=== PATIENT | male | born 1960 | race Caucasian/White ===

== ENCOUNTER 2023-12-16 09:26 | Inpatient (IN) ==
[2023-12-16 11:40] LABS: Albumin Globulin Ratio 0.7 (0.9-2); Albumin Level 3.1 gm/dl (3.4-5.0); BUN Creatinine Ratio 6.5 (10-20); Calcium 8.6 mg/dl (8.6-10.3); Creatinine Clr Calc Pharmacy 82.2 ml/min; Est GFR (African American) 101.5 ml/min; Est GFR (Non-African American) 87.6 ml/min; Globulin 4.6 gm/dl (2.5-4.0); Potassium 4.2 mmol/L (3.5-5.1); Total Protein 7.7 gm/dl (6.0-8.3)
[2023-12-16 11:44] LABS: Anisocytosis Present; Basophils # (auto) 0.02 K/uL (0.00-0.20); Basophils % (auto) 0.2 %; Eosinophils # (auto) 0.01 K/uL (0.00-0.50); Eosinophils % (auto) 0.1 %; Hematocrit (blood only) 35.3 % (42.0-52.0); Hemoglobin 9.9 g/dl (14.0-18.0); Immature Granulocytes # (auto) 0.04 K/uL (0.01-0.20); Immature Granulocytes % (auto) 0.4 %; Lymphocytes # (auto) 0.77 K/uL (1.20-3.40); Lymphocytes % (auto) 7.3 %; Mean Corpuscular Hemoglobin 17.8 pg (25.0-34.0); Mean Corpuscular Volume 63.5 fL (80.0-100.0); Mean Platelet Volume 9.7 fL (9.4-12.4); Monocytes # (auto) 0.53 K/uL (0.11-0.59); Neutrophils # (auto) 9.23 K/uL (1.40-6.50); Platelet Count 259 K/uL (130-400); Polychromasia 1+; RDW Coefficient of Variation 24.4 % (11.5-14.5); RDW Standard Deviation 53.1 fL (36.4-46.3); Red Blood Count 5.56 M/uL (4.70-6.10); Target Cells 2+
[2023-12-16] MEDS: OPTIRAY 320 100ml IV ONE (12:02)
--- NOTE | 2023-12-16 12:29 | CT Scan Report ---
CT abd pelvis IV con only CLINICAL HISTORY: CONTINUED ABD PAIN, ABNORMAL CT 2 DAYS AGO TECHNIQUE: Helical axial images of the abdomen and pelvis were obtained and displayed. Automated dose lowering techniques and/or adjustment according to patient size were utilized for this exam. This e xam was performed with intravenous contrast. CT DOSE: 1193.81 mGy.cm COMPARISON: Comparison is made to CT abdomen pelvis 12/15/2023 FINDINGS: Lower chest: No acute abnormality. Liver: Hepatic steatosis is noted. Gallbladder and biliary tree: No calcified gallstones. Normal caliber wall. No intra- or extrahepatic biliary ductal dilation. Pancreas: Unremarkable, no focal lesions. Spleen: Unremarkable. Adrenals: Unremarkable. Kidneys and ureters: Unremarkable. Bladder: Diffuse homogeneous wall thickening is seen. Reproductive organs: Prostatic calcifications are seen which may represent prior hemorrhage or granul omatous disease. Bowel: There are multiple dilated loops of thickened small bowel up to the level of the ileocecal alek ve. A proximal transition point suggested in the left upper quadrant. The colon is underdistended. Th e appendix is normal. Diverticulosis is seen without diverticulitis. There is a moderate hiatal herni a. Lymph nodes Retroperitoneal: Unremarkable. Pelvic: Unremarkable. Mesenteric: Unremarkable. Peritoneum: A small amount of peritoneal fluid is seen. Vessels: Atherosclerotic calcifications are seen. Abdominal wall: A fat-containing umbilical hernia is seen. Bones: Degenerative changes in the visualized spine. IMPRESSION: 1. Worsening findings of enteritis, now likely with a component of small bowel obstruction. 2. Hepatic steatosis. ACT 112: Negative or not required by law. Electronically signed by: Vignesh Licona M.D. 12/16/2023 12:28 PM
[2023-12-16] MEDS: KETOROLAC TROMETHAMINE 15 MG/ML VIAL IV ONE (14:50)
[2023-12-16] MEDS: SODIUM CHLORIDE 0.9% 1,000 ML IV ONE (14:51)
[2023-12-16] MEDS: ACETAMINOPHEN 1,000 MG/100 ML VIAL IV STA (14:53)
[2023-12-16] MEDS: LORazepam 1 MG/1 ML SYR ED Inj Use IV STA (14:58)
--- NOTE | 2023-12-16 15:02 | Emergency Department Note ---
Impression & Plan SBO (small bowel obstruction) ED Provider Note NAME: RODRIGO CARY AGE: 63 SEX: M : 1960 ARRIVES VIA: Walk-In INFORMANT: Patient, ED PROVIDER(S): Jennifer Ferrer MD CHIEF COMPLAINT: Worsening abdominal pain HPI: This is a 63-year-old male with history of alcohol use disorder presenting for worsening abdominal pain. Patient states that he was diagnosed with enteritis about 2 days ago. At this time on CT imaging here. Otherwise the workup was negative in the ER. Patient presented to his PCP was concerned for a lump in the cecum. Unclear why what testing prompted this. Otherwise patient notes that his pain is significantly worsening at this time. No recent fevers or chills. No recent diarrhea. ROS: See above HPI for pertinent positives & negatives. A total of 10 systems reviewed and were otherwise negative. PAST MEDICAL HISTORY: See Below PAST SURGICAL HISTORY: See Below FAMILY HISTORY: See Below SOCIAL HISTORY: See Below HOME MEDICATIONS: See Below ALLERGIES: See Below VITALS: See Below PHYSICAL EXAMINATION: General: resting comfortably in no acute distress Head: Normocephalic and atraumatic Eyes: Normal inspection, extraocular muscles intact Ear, nose, throat: Normal external exam Neck: Normal range of motion Respiratory: lungs clear to auscultation bilaterally Cardiovascular: Regular rate/rhythm, no murmur GI: Distended, soft, nontender, no guarding or rebound Extremities: nontender, moves all extremities Neuro: The patient awake and alert, appropriately conversive, no focal deficits, symmetric faces Skin: Warm, dry, and intact MEDICAL DECISION MAKING: This is a 63-year-old male presenting for worsening abdominal pain. He had repeat CT imaging here that now shows small bowel obstruction. Patient blood work otherwise reviewed without significant maladies. Patient also does admit to chronic alcohol use and slight withdrawal. Will give him Ativan for this. Admit for further SBO treatment. Differential diagnosis: SBO, dissection, gastritis, enteritis, cholecystitis, hepatitis ER treatment provided: See below Diagnostics interpreted by me: ECG: ECG independently interpreted by me with normal sinus rhythm, rate of 65, normal axis, normal PA, normal QRS, normal QTc, no ST segment elevations consistent with STEMI criteria Cardiac Monitoring: An order was placed for continuous cardiac monitoring. The monitor shows a rate of 74 with sinus rhythm. Laboratory studies: As stated above and show below. Imaging studies: See below. Past Med/Surg History Medical History Alcohol use disorder H/O gastroesophageal reflux (GERD) Social History Smoking Status: Never smoker Hx Alcohol Use: Yes Alcohol type: beer and hard liquor Hx Substance Use: No Preferred Language: Greenlandic Communication Ability: Effective Nocturnist Physician Required: No Beliefs That Will Affect Care: None Current Living Situation: Alone Feels Safe at Home: Yes Assistive Devices: None Allergies Allergies Allergy/AdvReac Type Severity Reaction Status Date / Time tree and shrub pollen Allergy Mild runny Verified 12/16/23 13:55 nose, itchy eyes, sneezing Home Meds Home Medications Medication Instructions Recorded Confirmed diphenhydramine HCl 25 mg capsule 25 mg PO DIRECTED PRN ALLERGIES 12/15/23 12/16/23 (Benadryl) Previous Rx's Medication Instructions Recorded pantoprazole 40 mg tablet,delayed 40 mg PO DAILY #30 tabs 10/29/23 release sucralfate 100 mg/mL oral 10 ml PO QID #420 mL 10/29/23 suspension (Carafate) dicyclomine 10 mg capsule 10 mg PO TID PRN abdominal pain 12/15/23 #20 caps ondansetron 4 mg disintegrating 4 - 8 mg (1 - 2 x 4 mg) PO Q8H PRN 12/15/23 tablet nausea and vomiting #14 tabs Results & Data (ED) Vital Signs Vital Signs - 24 hr 12/16/23 09:35 Temperature 36.5 C Temperature Source Temporal Artery Scan Pulse Rate 94 H Pulse Rhythm Regular Respiratory Rate 20 Respiratory Effort / Characteristics Non-Labored Spontaneous Respiratory Depth Normal Blood Pressure 132/75 Blood Pressure Mean 94 Pulse Oximetry 97 Oxygen Delivery Method Room Air Sepsis Recent Fever Within 48 Hours No Sepsis New/Unexplained Change in Mental Status No Sepsis Action Taken by Nursing No Action Required Laboratory Data 12/18/23 05:27 12/18/23 05:27 Lab Results 12/16/23 12/16/23 12/16/23 Range/Units 11:03 15:13 15:14 WBC 10.60 (4.8-10.8) K/ul RBC 5.56 (4.70-6.10) M/uL Hgb 9.9 L (14.0-18.0) g/dl Hct 35.3 L (42.0-52.0) % MCV 63.5 L (80.0-100.0) fL MCH 17.8 L (25.0-34.0) pg MCHC 28.0 L (32.0-36.0) g/dL RDW Std Deviation 53.1 H (36.4-46.3) fL RDW Coeff of Rustam 24.4 H (11.5-14.5) % Plt Count 259 (130-400) K/uL MPV 9.7 (9.4-12.4) fL Immature Gran % (Auto) 0.4 % Neut % (Auto) 87.0 % Lymph % (Auto) 7.3 % Gallia % (Auto) 5.0 % Eos % (Auto) 0.1 % Baso % (Auto) 0.2 % Neut # (Auto) 9.23 H (1.40-6.50) K/uL Lymph # (Auto) 0.77 L (1.20-3.40) K/uL Gallia # (Auto) 0.53 (0.11-0.59) K/uL Eos # (Auto) 0.01 (0.00-0.50) K/uL Baso # (Auto) 0.02 (0.00-0.20) K/uL Immature Gran # (Auto) 0.04 (0.01-0.20) K/uL Polychromasia 1+ Hypochromasia Present Anisocytosis Present Microcytosis Present Target Cells 2+ Sodium 132 L (136-145) mmol/L Potassium 4.2 (3.5-5.1) mmol/L Chloride 99 (98-107) mmol/L Carbon Dioxide 25 (21-32) mmol/L Anion Gap 8 (3-11) BUN 6 (6-23) mg/dl Creatinine 0.92 (0.6-1.4) mg/dl Est Cr Clr Drug Dosing 82.2 ml/min Est GFR ( Amer) 101.5 ml/min Est GFR (Non-Af Amer) 87.6 ml/min BUN/Creatinine Ratio 6.5 L (10-20) Glucose 140 H (70-99(Fasting)) mg/dl Lactate 1.7 (0.4-2.0) mmol/L Calcium 8.6 (8.6-10.3) mg/dl Magnesium 2.0 (1.7-2.4) mg/dl Total Bilirubin 1.0 D (0.2-1.0) mg/dl AST 37 (13-39) U/L ALT 19 (7-52) U/L Alkaline Phosphatase 119 H (34-104) U/L Total Protein 7.7 (6.0-8.3) gm/dl Albumin 3.1 L (3.4-5.0) gm/dl Globulin 4.6 H (2.5-4.0) gm/dl Albumin/Globulin Ratio 0.7 L (0.9-2) Lipase 51 (11-82) U/L Vitamin B12 475 (180-914) pg/ml Folate 7.64 (>5.38) ng/ml Administered Medications Thiamine HCl 100 mg/ Syringe 10 mls @ 2 mls/min IV [facility] Stop: 01/15/24 15:44 Last Admin: 12/17/23 08:52 Dose: 2 mls/min Documented By: Admin: 12/16/23 17:09 Dose: 2 mls/min Documented By: ANI Folic Acid 1 mg/ Syringe 10 mls @ 5 mls/min IV [facility] Stop: 01/15/24 15:44 Last Admin: 12/17/23 08:51 Dose: 5 mls/min Documented By: Admin: 12/16/23 17:09 Dose: 5 mls/min Documented By: ANI Acetaminophen (Ofirmev) 1,000 mg in 100 mls @ 400 mls/hr IV Q8H PRN PRN Reason: pain(1-4),headache,fever Stop: 12/19/23 19:59 Last Infusion: 12/17/23 03:56 Dose: Infused Documented By: Admin: 12/17/23 03:29 Dose: 400 mls/hr Documented By: Infusion: 12/16/23 22:16 Dose: Infused Documented By: Admin: 12/16/23 20:49 Dose: 400 mls/hr Documented By: FRANDY Lactated Ringer's (Lr) 1,000 mls @ 100 mls/hr IV .Q10H FE Stop: 01/15/24 15:59 Last Admin: 12/18/23 05:27 Dose: 100 mls/hr Documented By: Infusion: 12/18/23 00:51 Dose: Infused Documented By: Admin: 12/17/23 14:51 Dose: 100 mls/hr Documented By: Infusion: 12/17/23 13:55 Dose: Infused Documented By: Admin: 12/17/23 03:55 Dose: 100 mls/hr Documented By: Infusion: 12/17/23 03:31 Dose: Infused Documented By: Admin: 12/16/23 16:19 Dose: 100 mls/hr Documented By: ANI Pantoprazole Sodium 40 mg/ (Syringe) 10 mls @ 5 mls/min IV BID FE Stop: 01/15/24 20:59 Last Admin: 12/17/23 21:45 Dose: 5 mls/min Documented By: Admin: 12/17/23 08:51 Dose: 5 mls/min Documented By: Admin: 12/16/23 20:49 Dose: 5 mls/min Documented By: FRANDY Famotidine (Pepcid 20mg Iv Push) 20 mg in 5 mls @ 2.5 mls/min IV Q12H FE Stop: 01/15/24 20:59 Last Admin: 12/17/23 21:44 Dose: 2.5 mls/min Documented By: Admin: 12/17/23 08:50 Dose: 2.5 mls/min Documented By: Admin: 12/16/23 20:49 Dose: 2.5 mls/min Documented By: FRANDY Morphine Sulfate (Morphine Sulfate 2 Mg/Ml Carp) 2 mg IV Q4H PRN PRN Reason: Pain(5+) Stop: 12/30/23 15:43 Last Admin: 12/17/23 12:17 Dose: 2 mg Documented By: Admin: 12/17/23 07:21 Dose: 2 mg Documented By: PETR Discontinued Medications Acetaminophen (Ofirmev) 1,000 mg in 100 mls @ 400 mls/hr IV NOW STA Stop: 12/16/23 14:41 Last Infusion: 12/16/23 15:15 Dose: Infused Documented By: Admin: 12/16/23 14:53 Dose: 400 mls/hr Documented By: SEBASTIAN Sodium Chloride (Nss) 1,000 mls @ 999 mls/hr IV .Q1H1M ONE Stop: 12/16/23 15:27 Last Infusion: 12/16/23 15:51 Dose: Infused Documented By: AENasima Infusion: 12/16/23 15:51 Dose: 0 mls/hr Documented By: Admin: 12/16/23 14:51 Dose: 999 mls/hr Documented By: SEBASTIAN Pantoprazole Sodium 40 mg/ (Syringe) 10 mls @ 5 mls/min IV NOW ONE Stop: 12/16/23 15:10 Last Admin: 12/16/23 15:26 Dose: 5 mls/min Documented By: ANI Famotidine (Pepcid 20mg Iv Push) 20 mg in 5 mls @ 2.5 mls/min IV NOW STA Stop: 12/16/23 15:10 Last Admin: 12/16/23 15:17 Dose: 2.5 mls/min Documented By: ANI Lactated Ringer's (Lr) 1,000 mls @ 999 mls/hr IV .Q1H1M ONE Stop: 12/16/23 16:40 Last Infusion: 12/16/23 16:57 Dose: Infused Documented By: Admin: 12/16/23 15:48 Dose: 999 mls/hr Documented By: ANI Ioversol (Optiray 320 100ml) 93 ml IV ONCE ONE Stop: 12/16/23 12:03 Last Admin: 12/16/23 12:02 Dose: 93 ml Documented By: MARIA ALEJANDRA Ketorolac Tromethamine (Ketorolac Tromethamine 15 Mg/Ml Vial) 15 mg IV NOW ONE Stop: 12/16/23 14:28 Last Admin: 12/16/23 14:50 Dose: 15 mg Documented By: SEBASTIAN Lorazepam (Lorazepam 1 Mg/1 Ml Syr Ed Inj Use) 2 mg IV ONE STA Stop: 12/16/23 14:34 Last Admin: 12/16/23 14:58 Dose: Not Given Documented By: ANI Ondansetron HCl (Ondansetron Inj 2 Mg/Ml 2 Ml Vial) 4 mg IV NOW STA Stop: 12/16/23 14:28 Last Admin: 12/16/23 15:49 Dose: Not Given Documented By: ANI Ondansetron HCl (Ondansetron Inj 2 Mg/Ml 2 Ml Vial) 4 mg IV NOW STA Stop: 12/17/23 11:38 Last Admin: 12/17/23 12:12 Dose: 4 mg Documented By: ASVANNA Imaging Data Radiologist's Impression: Abdomen/Pelvis CT 12/16/23 10:04 CT abd pelvis IV con only CLINICAL HISTORY: CONTINUED ABD PAIN, ABNORMAL CT 2 DAYS AGO TECHNIQUE: Helical axial images of the abdomen and pelvis were obtained and displayed. Automated dose lowering techniques and/or adjustment according to patient size were utilized for this exam. This exam was performed with intravenous contrast. CT DOSE: 1193.81 mGy.cm COMPARISON: Comparison is made to CT abdomen pelvis 12/15/2023 FINDINGS: Lower chest: No acute abnormality. Liver: Hepatic steatosis is noted. Gallbladder and biliary tree: No calcified gallstones. Normal caliber wall. No intra- or extrahepatic biliary ductal dilation. Pancreas: Unremarkable, no focal lesions. Spleen: Unremarkable. Adrenals: Unremarkable. Kidneys and ureters: Unremarkable. Bladder: Diffuse homogeneous wall thickening is seen. Reproductive organs: Prostatic calcifications are seen which may represent prior hemorrhage or granulomatous disease. Bowel: There are multiple dilated loops of thickened small bowel up to the level of the ileocecal valve. A proximal transition point suggested in the left upper quadrant. The colon is underdistended. The appendix is normal. Diverticulosis is seen without diverticulitis. There is a moderate hiatal hernia. Lymph nodes Retroperitoneal: Unremarkable. Pelvic: Unremarkable. Mesenteric: Unremarkable. Peritoneum: A small amount of peritoneal fluid is seen. Vessels: Atherosclerotic calcifications are seen. Abdominal wall: A fat-containing umbilical hernia is seen. Bones: Degenerative changes in the visualized spine. IMPRESSION: 1. Worsening findings of enteritis, now likely with a component of small bowel obstruction. 2. Hepatic steatosis. ACT 112: Negative or not required by law. Electronically signed by: Vignesh Licona M.D. 12/16/2023 12:28 PM Discharge Plan Visit Data Chief Complaint: Abdominal Pain Stated Complaint: ABD CRAMPING, POSSIBLE GASTRITIS ED Provider: Jennifer Ferrer Discharge Problem: SBO (small bowel obstruction) Patient Disposition: Admitted As Inpatient Discharge Instructions Interventions: ED Discharge Assessment Last Done: 12/16/23 17:46
--- NOTE | 2023-12-16 15:11 | History & Physical Report ---
Date of Service December 16, 2023 Assessment & Plan (1) SBO (small bowel obstruction): Plan: -Admit to med/tele -Currently stable and non-toxic appearing -Noted to have a SBO on CT of the abd/pelvis today after he presented to the ED with worsening abd pain, nausea, and vomiting -Patient is currently pain free and without current nausea or vomiting, will hold NG tube for now >Discussed need for NG tube if symptoms worsen, patient is in agreement if needed -General Surgery has been consulted and will follow, no urgent OR plans at this time -Strict NPO -S/P 1L NSS and 15 mg IV toradol in the ED, would avoid further nsaids at this time with acute enteritis as well -Will give 1L LR on admission then continue maintenance LR while NPO -Pain control with IV tylenol and morphine -PRN IV zofran for nausea/vomiting -BL MARK's for DVT PPX AM CBC, CMP, mag, PT/INR, folic acid, B12 levels (2) Enteritis: Plan: -Had been noted on the CT of the abd/pelvis on 12/13 -Now more severe today, no reported perforation or bleed -Likely due to his alcohol use -Patient did note up to 8 episodes of non-bloody diarrhea over the past month >States his BM's are usually loose and small -Will begin q12h IV famotidine and pantoprazole -Will obtain stool studies and C. Diff PCR to rule out infectious etiology -Will hold abx for now as he is without a leukocytosis and is non-toxic a ppearing -Pain management per SBO plan (3) Alcohol use disorder: Plan: -Patient was drinking up to 24 beers daily approximately 6 weeks ago -Has been slowly weaning down alcohol intake to prevent withdrawal symptoms -Patient has had withdrawal symptoms in the past when he stops drinking but denies the previous need for inpatient hospitalization -Denies previous withdrawal seizures -Last drink was 2, 3% beers last evening -Denies current withdrawal symptoms, does not appear to be in active withdrawal -Did have one dose of 2mg IV ativan -Will start at risk AWSS protocol with IV ativan -Will start daily IV thiamine and folic acid today -Continue IV hydration -Will obtain mag level -Will obtain B12 and folic acid levels (4) Diarrhea: Plan: -Patient has been having up to 8 episodes of non-bloody diarrhea over the past 2 months -Denies recent fevers or abx use -Likely due to his alcohol use, poor oral intake and enteritis -Will obtain stool studies and C. diff PCR for further evaluation -Hold antidiarrheals until stool studies are back (5) H/O gastroesophageal reflux (GERD): Plan: -Continue IV pantoprazole and Pepcid while NPO -Can resume PO PPI, H2 tasneem, and Carafate when safe to resume PO intake (6) Anemia: Plan: -Patient noted to have a chronic, microcytic, hypochromic anemia -States he has a hx of iron deficiency anemia -Has not been on PO Iron recently -Will add on B12 and Folate levels on admission -Should be followed by PCP when discharged Plan The patient was discussed with Dr. Grigsby at the time of the admission History of Present Illness Chief Complaint: worsening abdominal pain, sent to ED by PCP Primary Care Provider: Dejuan Oliva MD Hossein is a 63 year old male with a PMH significant for alcohol abuse (currently drinking 6 beers daily) and GERD who was sent to the [facility] ED by his PCP after he was diagnosed with enteritis on 12/14/23 but had ongoing abdominal pa in and poor oral intake. He remained stable in the ED. Labs were significant for an MCV of 63, MCHC of 28, stable hgb of 9.9, lactate WNL, and sodium of 132. CT of the abd/pelvis w/IV con was read as "1. Worsening findings of enteritis, now likely with a component of small bowel obstruction. 2. Hepatic steatosis.". Prior to admission the patient was given 1L NSS, 4 mg IV Zofran, 15 mg IV toradol. The ED staff spoke to the General Surgery team who will follow while the patient is admitted. At the time of the exam the patient was sitting in bed in no acute distress. He states that he has been having generalized abdominal pain and non-bloody diarrhea for the past 2 months which prompted his initial ED visit on 12/14/23. He was discharged on Carafate and pantoprazole which he was taking without significant improvement in his symptoms. He has been having worsening abdominal pain which started in the BL lower abdomen and moves up into his epigastric region. He rated the pain a 10/10 on arrival, it is currently resolved. He states that the pain was a burning sensation. He has been a long time alcohol abuser. He was drinking up to 24 beers daily approximately 6 weeks ago. Over the past 6 weeks he had been slowly weaning his alcohol intake to prevent withdrawal. He does have previous history of withdrawal when he stops drinking but denies the need for previous medical admissions and denies previous withdrawal seizures. His last drink was 2 beers last evening. This am he was experiencing severe abdominal pain and recurrent nausea/vomiting promoting ED arrival. He denies recent fever, chills, chest pain, SOB, hematemesis, coffee ground emesis, dysuria, hematuria, melena, bright red BM's, LE swelling, and recent trauma. He is a full code and would want his sister to make medical decisions for him if he cannot make them himself. Please refer to Dr. Grigsby' attestation for any changes to the treatment plan Allergies Allergy/AdvReac Type Severity Reaction Status Date / Time tree and shrub pollen Allergy Mild runny Verified 12/16/23 13:55 nose, itchy eyes, sneezing Home Medications Medication Instructions Recorded Confirmed Type pantoprazole 40 mg tablet,delayed 40 mg PO DAILY #30 tabs 10/29/23 12/16/23 Rx release sucralfate 100 mg/mL oral 10 ml PO QID #420 mL 10/29/23 12/16/23 Rx suspension (Carafate) dicyclomine 10 mg capsule 10 mg PO TID PRN abdominal pain 12/15/23 12/16/23 Rx #20 caps diphenhydramine HCl 25 mg capsule 25 mg PO DIRECTED PRN ALLERGIES 12/15/23 12/16/23 History (Benadryl) ondansetron 4 mg disintegrating 4 - 8 mg (1 - 2 x 4 mg) PO Q8H PRN 12/15/23 12/16/23 Rx tablet nausea and vomiting #14 tabs Past Med/Surg History Medical History (Updated 12/16/23 @ 16:00 by Alex Garcia PA-C) Alcohol use disorder H/O gastroesophageal reflux (GERD) Social History Smoking Status: Never smoker Preferred Language: Lithuanian Feels Safe at Home: Yes Physical Exam Physical Exam: Physical Exam: General: In no acute distress, stated age, chronically ill appearing but non- toxic HEENT: Normocephalic, atraumatic, no scleral icterus, pupils around round, symmetrical, and reactive to light, rhinophyma noted, dry mucus membranes, trachea midline, no thyromegaly Chest/Pulm: No respiratory distress, symmetrical chest expansion, clear breath sounds throughout Cardiac: RRR, no murmurs noted Abdomen: Negative for ascites and bruising, hypoactive bowel sounds, firm abdomen, non-tender to percussion and palpation throughout, no rebound tenderness Musculoskeletal: Symmetrical and without signs of acute trauma, upper and lower extremities with full ROM, no atrophy, spasticity, or flaccidity Extremities: Radial, dorsalis pedis, and posterior tibial pulses are intact and symmetrical, no edema noted in the BL LE's Skin: Warm, dry, no rashes , lesions, or scars noted Neuro: Alert and oriented to person, place, month, year, and president, no focal defects, CN II-XII tested and intact, baseline resting tremor noted Psych: No acute distress, calm and cooperative during the exam, denies auditory/visual/tactile hallucinations, Results & Data Results & Data Vital Signs (Past 12 Hours) Vital Signs Temp Pulse Resp BP Pulse Ox O2 Del Method 12/16/23 09:35 36.5 C 94 H 20 132/75 97 Room Air Laboratory Results Abnormal lab results 12/16/23 Range/Units 11:03 Hgb 9.9 L (14.0-18.0) g/dl Hct 35.3 L (42.0-52.0) % MCV 63.5 L (80.0-100.0) fL MCH 17.8 L (25.0-34.0) pg MCHC 28.0 L (32.0-36.0) g/dL RDW Std Deviation 53.1 H (36.4-46.3) fL RDW Coeff of Rustam 24.4 H (11.5-14.5) % Neut # (Auto) 9.23 H (1.40-6.50) K/uL Lymph # (Auto) 0.77 L (1.20-3.40) K/uL Sodium 132 L (136-145) mmol/L BUN/Creatinine Ratio 6.5 L (10-20) Glucose 140 H (70-99(Fasting)) mg/dl Alkaline Phosphatase 119 H (34-104) U/L Albumin 3.1 L (3.4-5.0) gm/dl Globulin 4.6 H (2.5-4.0) gm/dl Albumin/Globulin Ratio 0.7 L (0.9-2) Diagnostic Findings Abdomen/Pelvis CT 12/16/23 10:04 CT abd pelvis IV con only CLINICAL HISTORY: CONTINUED ABD PAIN, ABNORMAL CT 2 DAYS AGO TECHNIQUE: Helical axial images of the abdomen and pelvis were obtained and displayed. Automated dose lowering techniques and/or adjustment according to patient size were utilized for this exam. This exam was performed with intravenous contrast. CT DOSE: 1193.81 mGy.cm COMPARISON: Comparison is made to CT abdomen pelvis 12/15/2023 FINDINGS: Lower chest: No acute abnormality. Liver: Hepatic steatosis is noted. Gallbladder and biliary tree: No calcified gallstones. Normal caliber wall. No intra- or extrahepatic biliary ductal dilation. Pancreas: Unremarkable, no focal lesions. Spleen: Unremarkable. Adrenals: Unremarkable. Kidneys and ureters: Unremarkable. Bladder: Diffuse homogeneous wall thickening is seen. Reproductive organs: Prostatic calcifications are seen which may represent prior hemorrhage or granulomatous disease. Bowel: There are multiple dilated loops of thickened small bowel up to the level of the ileocecal valve. A proximal transition point suggested in the left upper quadrant. The colon is underdistended. The appendix is normal. Diverticulosis is seen without diverticulitis. There is a moderate hiatal hernia. Lymph nodes Retroperitoneal: Unremarkable. Pelvic: Unremarkable. Mesenteric: Unremarkable. Peritoneum: A small amount of peritoneal fluid is seen. Vessels: Atherosclerotic calcifications are seen. Abdominal wall: A fat-containing umbilical hernia is seen. Bones: Degenerative changes in the visualized spine. IMPRESSION: 1. Worsening findings of enteritis, now likely with a component of small bowel obstruction. 2. Hepatic steatosis. ACT 112: Negative or not required by law. Electronically signed by: Vignesh Licona M.D. 12/16/2023 12:28 PM ECG Additional Comments: Will obtain at time of admission Code Status & VTE Plan Code Status Full code VTE Prophylaxis Plan VTE Prophylaxis will be ordered: Yes Supervising Physician Co-Signing Physician Notes I have personally seen, evaluated and examined the patient. I have also personally discussed the management of the patient with the resident physician/FRANKIE and I agree with the exam findings documented in the history and physical examination and the documented assessment and plan unless otherwise stated below. Brief Exam: In general this is a pleasant 63-year-old male who is alert and oriented x 3 at time my exam he has mild abdominal discomfort but is significant pain has resolved. He interacts appropriate and pleasantly. 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 HEENT normocephalic atraumatic significant rhinophyma is noted Heart: Regular rate and rhythm. I appreciate no murmur or ectopy. Lungs: Clear bilaterally. Abdomen: Moderately distended. Mildly tender to palpation diffusely no rebound no peritoneal signs bowel sounds are present but hypoactive. No appreciable organomegaly but exam is somewhat limited due to the distention. Extremities: Intact I do not appreciate any clubbing cyanosis or edema Neurologically he is alert and oriented x 3. He does have fine tremor of the upper extremities bilaterally he does have a history of alcohol withdrawal and has been weaning himself off as documented above. Assessment/plan: As discussed above. Await surgical input n.p.o. IV fluids as needed antiemetic and analgesics. AWSS protocol has been ordered. Please refer to orders for further planning. PG Care Time/CCT Total # of Minutes Spent Total Time Spent with Patient: Total time spent is greater than 50% in coordination of care (as documented) at patient's floor/unit and/or counseling patient: [place] [address] INT INP/OBS CARE 3/75MIN Patient Type Established Medical Decision Making High Complexity Diagnoses SBO (small bowel obstruction) K56.609 Enteritis K52.9 Alcohol use disorder F10.90 Diarrhea R19.7 H/O gastroesophageal reflux (GERD) Z87.19 Anemia D64.9
[2023-12-16] MEDS: FAMOTIDINE 20MG IV PUSH 20 MG/5 ML SYR IV STA (15:17)
[2023-12-16] MEDS: PANTOprazole 40 MG in SYRINGE 0 ML IV ONE (15:26)
[2023-12-16] MEDS ORDERED: LORazepam 1 MG in SYRINGE 0.5 ML IV PRN (15:40)
[2023-12-16] MEDS: LACTATED RINGER'S 1,000 ML IV ONE (15:48)
[2023-12-16] MEDS: ONDANSETRON INJ 2 MG/ML 2 ML VIAL IV STA (15:49)
[2023-12-16] MEDS: LACTATED RINGER'S 1,000 ML IV SCH (16:19)
[2023-12-16 16:27] LABS: Folate (Folic Acid),Ser orPlas 7.64 ng/ml (>5.38)
--- NOTE | 2023-12-16 16:29 | XRay Report ---
SINGLE VIEW CHEST CLINICAL HISTORY: Nausea and vomiting FINDINGS: An AP, portable, upright chest radiograph is compared to study dated 10/29/2023. Correlation is made with chest CT dated 10/29/2023. The heart is enlarged. The pulmonary vasculature is nonconges leander. Chronic interstitial thickening similar to previous. There is mild bibasilar scarring/atelectasi s. The lungs and pleural spaces are otherwise clear. No pneumothorax is seen. The skeletal structures are osteopenic. There are chronic/healed right-sided rib fractures. IMPRESSION: Cardiomegaly with no active disease in the chest. ACT 112: Negative or not required by law. Electronically signed by: David Inman M.D. 12/16/2023 4:27 PM
[2023-12-16] MEDS: FOLIC ACID 1 MG in SYRINGE 9.8 ML IV SCH (17:09)
[2023-12-16] MEDS: THIAMINE HCL 100 MG in SYRINGE 9 ML IV SCH (17:09)
--- NOTE | 2023-12-16 17:15 | Surgery Consultation ---
Date of Consultation December 16, 2023 Assessment & Plan (1) Enteritis: (2) Diarrhea: (3) SBO (small bowel obstruction): 63 year-old male recently in ED and diagnosed with enteritis presented back to ED with increasing abdominal pain, nausea, vomiting, and diarrhea. Has had history of bowel changes and stomach issues for at least 6 weeks. Daughter has history of Crohn's disease. Abdomen mildly distended however no peritoneal signs. SBO likely secondary to bowel inflammation. Given patients history of bowel changes and symptoms persisting for 6 weeks or more would recommend gastroenterology consultation for further evaluation. Continue medical management Dr. Myles has seen and examined patient, agrees with above Supervising Physician Co-Signing Physician Notes I have seen and examined the patient personally and agree with the above assessment and plan. In brief this is a 63-year-old gentleman who has been having on and off GI complaints for the past 7 or 8 months. About 6 weeks ago he developed more constant pain which is progressed to bloating and pain in his lower abdomen. CT scan demonstrates distal enteritis with possible component of partial small bowel obstruction. On exam he is mildly distended and mildly tender to palpation diffusely. No surgical intervention is required at this time. Continue medical management. I would recommend GI consultation for investigation of possible inflammatory bowel disease. His daughter has Crohn's disease, in given his age and other symptoms, will be worth working him up for Crohn's. We will peripherally follow. Please call with questions or concerns. History of Present Illness Reason for Consultation: Enteritis, SBO History of Present Illness Hossein is a 63 year old male with a PMH significant for alcohol abuse (currently drinking 6 beers daily) and GERD who was sent to the [facility] ED by his PCP after he was diagnosed with enteritis on 12/14/23 but had ongoing abdominal pain and poor oral intake. He states that he has noticed some changes in his bowels for about 6 weeks with belching. Daughter has history of Crohn's disease. CT of abdomen and pelvis showing worsening eneritis with possible small bowel obstruction component. Allergies Allergy/AdvReac Type Severity Reaction Status Date / Time tree and shrub pollen Allergy Mild runny Verified 12/16/23 13:55 nose, itchy eyes, sneezing Home Medications Medication Instructions Recorded Confirmed Type pantoprazole 40 mg tablet,delayed 40 mg PO DAILY #30 tabs 10/29/23 12/16/23 Rx release sucralfate 100 mg/mL oral 10 ml PO QID #420 mL 10/29/23 12/16/23 Rx suspension (Carafate) dicyclomine 10 mg capsule 10 mg PO TID PRN abdominal pain 12/15/23 12/16/23 Rx #20 caps diphenhydramine HCl 25 mg capsule 25 mg PO DIRECTED PRN ALLERGIES 12/15/23 12/16/23 History (Benadryl) ondansetron 4 mg disintegrating 4 - 8 mg (1 - 2 x 4 mg) PO Q8H PRN 12/15/23 12/16/23 Rx tablet nausea and vomiting #14 tabs Patient History Medical History (Updated 12/16/23 @ 16:00 by Alex Garcia PA-C) Alcohol use disorder H/O gastroesophageal reflux (GERD) Social History Smoking Status: Never smoker Preferred Language: Romansh Feels Safe at Home: Yes Physical Exam Constitutional: WD/WN, vitals as above cooperative, comfortable and + overweight; no acute distress and not ill appearing Respiratory: normal respiratory effort; no respiratory distress, no labored breathing and no retractions Gastrointestinal (Abdomen): Inspection/Auscultation: + abdomen distended (mildly distended) and + visible herniation (umbilical) Percussion/Palpation: abdomen soft; abdomen nontender, no guarding and abdomen not rigid Skin: no rashes, warm and dry Psychiatric: Orientation: alert and oriented x 3 Results & Data Vital Signs (Past 12 Hours) Vital Signs Temp Pulse Pulse Resp BP BP Pulse Ox 12/16/23 17:00 70 18 100 12/16/23 15:00 77 18 108/73 98 12/16/23 09:35 36.5 C 94 H 20 132/75 97 O2 Del Method 12/16/23 17:00 Room Air 12/16/23 15:00 12/16/23 09:35 Room Air Laboratory Results 12/16/23 12/16/23 12/16/23 Range/Units 15:14 15:13 11:03 WBC 10.60 (4.8-10.8) K/ul RBC 5.56 (4.70-6.10) M/uL Hgb 9.9 L (14.0-18.0) g/dl Hct 35.3 L (42.0-52.0) % MCV 63.5 L (80.0-100.0) fL MCH 17.8 L (25.0-34.0) pg MCHC 28.0 L (32.0-36.0) g/dL RDW Std Deviation 53.1 H (36.4-46.3) fL RDW Coeff of Rustam 24.4 H (11.5-14.5) % Plt Count 259 (130-400) K/uL MPV 9.7 (9.4-12.4) fL Immature Gran % (Auto) 0.4 % Neut % (Auto) 87.0 % Lymph % (Auto) 7.3 % Bucks % (Auto) 5.0 % Eos % (Auto) 0.1 % Baso % (Auto) 0.2 % Neut # (Auto) 9.23 H (1.40-6.50) K/uL Lymph # (Auto) 0.77 L (1.20-3.40) K/uL Bucks # (Auto) 0.53 (0.11-0.59) K/uL Eos # (Auto) 0.01 (0.00-0.50) K/uL Baso # (Auto) 0.02 (0.00-0.20) K/uL Immature Gran # (Auto) 0.04 (0.01-0.20) K/uL Polychromasia 1+ Anisocytosis Present Target Cells 2+ Sodium 132 L (136-145) mmol/L Potassium 4.2 (3.5-5.1) mmol/L Chloride 99 (98-107) mmol/L Carbon Dioxide 25 (21-32) mmol/L Anion Gap 8 (3-11) BUN 6 (6-23) mg/dl Creatinine 0.92 (0.6-1.4) mg/dl Est Cr Clr Drug Dosing 82.2 ml/min Est GFR ( Amer) 101.5 ml/min Est GFR (Non-Af Amer) 87.6 ml/min BUN/Creatinine Ratio 6.5 L (10-20) Glucose 140 H (70-99(Fasting)) mg/dl Lactate 1.7 (0.4-2.0) mmol/L Calcium 8.6 (8.6-10.3) mg/dl Magnesium 2.0 (1.7-2.4) mg/dl Total Bilirubin 1.0 D (0.2-1.0) mg/dl AST 37 (13-39) U/L ALT 19 (7-52) U/L Alkaline Phosphatase 119 H (34-104) U/L Total Protein 7.7 (6.0-8.3) gm/dl Albumin 3.1 L (3.4-5.0) gm/dl Globulin 4.6 H (2.5-4.0) gm/dl Albumin/Globulin Ratio 0.7 L (0.9-2) Lipase 51 (11-82) U/L Vitamin B12 475 (180-914) pg/ml Folate 7.64 (>5.38) ng/ml Diagnostic Findings CT abd pelvis IV con only CLINICAL HISTORY: CONTINUED ABD PAIN, ABNORMAL CT 2 DAYS AGO TECHNIQUE: Helical axial images of the abdomen and pelvis were obtained and displayed. Automated dose lowering techniques and/or adjustment according to patient size were utilized for this exam. This exam was performed with intravenous contrast. CT DOSE: 1193.81 mGy.cm COMPARISON: Comparison is made to CT abdomen pelvis 12/15/2023 FINDINGS: Lower chest: No acute abnormality. Liver: Hepatic steatosis is noted. Gallbladder and biliary tree: No calcified gallstones. Normal caliber wall. No intra- or extrahepatic biliary ductal dilation. Pancreas: Unremarkable, no focal lesions. Spleen: Unremarkable. Adrenals: Unremarkable. Kidneys and ureters: Unremarkable. Bladder: Diffuse homogeneous wall thickening is seen. Reproductive organs: Prostatic calcifications are seen which may represent prior hemorrhage or granulomatous disease. Bowel: There are multiple dilated loops of thickened small bowel up to the level of the ileocecal valve. A proximal transition point suggested in the left upper quadrant. The colon is underdistended. The appendix is normal. Diverticulosis is seen without diverticulitis. There is a moderate hiatal hernia. Lymph nodes Retroperitoneal: Unremarkable. Pelvic: Unremarkable. Mesenteric: Unremarkable. Peritoneum: A small amount of peritoneal fluid is seen. Vessels: Atherosclerotic calcifications are seen. Abdominal wall: A fat-containing umbilical hernia is seen. Bones: Degenerative changes in the visualized spine. IMPRESSION: 1. Worsening findings of enteritis, now likely with a component of small bowel obstruction. 2. Hepatic steatosis.
--- NOTE | 2023-12-16 17:22 | Electrocardiogram Report ---
Test Reason : Blood Pressure : / mmHG Vent. Rate : 065 BPM Atrial Rate : 065 BPM P-R Int : 174 ms QRS Dur : 084 ms QT Int : 436 ms P-R-T Axes : 039 -06 002 degrees QTc Int : 453 ms Normal sinus rhythm Normal ECG When compared with ECG of 15-DEC-2023 00:25, Vent. rate has decreased BY 35 BPM PRWP no longer present Confirmed by Kenny Harris ([id number]) on 12/16/2023 5:22:22 PM Referred By: REFERRED SELF Confirmed By:Kenny Harris
[2023-12-16] MEDS: ACETAMINOPHEN 1,000 MG/100 ML VIAL IV PRN (20:49)
[2023-12-16] MEDS: PANTOprazole 40 MG in SYRINGE 0 ML IV SCH (20:49)
[2023-12-16] MEDS: FAMOTIDINE 20MG IV PUSH 20 MG/5 ML SYR IV SCH (20:49)
[2023-12-17 03:55] LABS: Appearance Urine Clear (Clear); Bacteria Urine Automated Negative (Negative); Blood Urine Negative (Negative); Color Urine Orange; Glucose Urine UA Negative (Negative); Ketones Urine 1+ (Negative); Leukocyte Esterase Urine Negative (Negative); Nitrite Urine Positive (Negative); Protein Urine 1+ (Negative); RBC Urine Automated 0-4 /hpf (0-4); Specific Gravity Urine > 1.045 (1.000-1.030); Urobilinogen Urine Negative (Negative)
[2023-12-17 04:05] LABS: Bilirubin Urine 1+ (Negative)
[2023-12-17 05:09] LABS: Albumin Globulin Ratio 0.7 (0.9-2); Albumin Level 2.5 gm/dl (3.4-5.0); BUN Creatinine Ratio 9.8 (10-20); Bilirubin,Total 1.2 mg/dl (0.2-1.0); Calcium 7.7 mg/dl (8.6-10.3); Creatinine Clr Calc Pharmacy 92.2 ml/min; Est GFR (African American) 108.3 ml/min; Est GFR (Non-African American) 93.5 ml/min; Globulin 3.5 gm/dl (2.5-4.0); Magnesium 1.8 mg/dl (1.7-2.4); Potassium 3.6 mmol/L (3.5-5.1)
[2023-12-17 05:35] LABS: Anisocytosis Present; Basophils # (auto) 0.02 K/uL (0.00-0.20); Basophils % (auto) 0.3 %; Eosinophils # (auto) 0.03 K/uL (0.00-0.50); Eosinophils % (auto) 0.4 %; Hematocrit (blood only) 29.2 % (42.0-52.0); Hemoglobin 8.3 g/dl (14.0-18.0); Hypochromasia Present; Immature Granulocytes # (auto) 0.03 K/uL (0.01-0.20); Immature Granulocytes % (auto) 0.4 %; Lymphocytes # (auto) 0.47 K/uL (1.20-3.40); Lymphocytes % (auto) 6.5 %; Mean Corpuscular Hemoglobin 17.9 pg (25.0-34.0); Mean Corpuscular Hgb Conc 28.4 g/dL (32.0-36.0); Mean Corpuscular Volume 63.1 fL (80.0-100.0); Mean Platelet Volume 9.9 fL (9.4-12.4); Microcytosis Present; Monocytes # (auto) 0.73 K/uL (0.11-0.59); Monocytes % (auto) 10.1 %; Neutrophils # (auto) 5.92 K/uL (1.40-6.50); Neutrophils % (auto) 82.3 %; Platelet Count 197 K/uL (130-400); Polychromasia 1+; RDW Coefficient of Variation 23.9 % (11.5-14.5); RDW Standard Deviation 52.4 fL (36.4-46.3); Red Blood Count 4.63 M/uL (4.70-6.10); Rouleaux 1+; Stomatocytes 1+; Target Cells 1+; Tear Drop Cells 1+
[2023-12-17] MEDS: MoRPHine SULFATE 2 MG/ML CARP IV PRN (07:21)
[2023-12-17 09:57] LABS: Hypochromasia Present; Microcytosis Present
[2023-12-17 10:02] LABS: Ferritin 8.5 ng/ml (8-388)
[2023-12-17 10:52] LABS: Adenovirus F 40/41 PCR Not Detected (NotDetected); Astrovirus PCR Not Detected (NotDetected); Campylobacter PCR Not Detected (NotDetected); Cryptosporidium PCR Not Detected (NotDetected); Cyclospora cayetanensis PCR Not Detected (NotDetected); Entamoeba histolytica PCR Not Detected (NotDetected); Enteroaggregative E.coli(EAEC) Not Detected (NotDetected); Enteropathogenic E.coli (EPEC) Not Detected (NotDetected); Enterotoxigenic E.coli (ETEC) Not Detected (NotDetected); Giardia lamblia PCR Not Detected (NotDetected); Norovirus GI/GII PCR Not Detected (NotDetected); Plesiomonas shigelloides PCR Not Detected (NotDetected); Rotavirus A PCR Not Detected (NotDetected); Salmonella PCR Not Detected (NotDetected); Sapovirus PCR Not Detected (NotDetected); Shiga-like Toxin E.coli (STEC) Not Detected (NotDetected); Shigella/Enteroinvasive E.coli Not Detected (NotDetected); Vibrio cholerae PCR Not Detected (NotDetected); Vibrio species PCR Not Detected (NotDetected); Yersinia enterocolitica PCR Not Detected (NotDetected)
[2023-12-17] MEDS ORDERED: ONDANSETRON INJ 2 MG/ML 2 ML VIAL IV PRN (11:55)
[2023-12-17] MEDS: ONDANSETRON INJ 2 MG/ML 2 ML VIAL IV STA (12:12)
[2023-12-17 12:47] LABS: Hematocrit (blood only) 32.1 % (42.0-52.0); Hemoglobin 8.8 g/dl (14.0-18.0)
--- NOTE | 2023-12-17 12:54 | Hospitalist Progress Note ---
Date of Service December 17, 2023 Assessment & Plan (1) SBO (small bowel obstruction): Plan: Appears to be partial related to the underlying enteritis. General surgery entry noted. No surgical intervention at this time. Conservative management. (2) Enteritis: Plan: More than likely a viral etiology. GI consultation pending. Continue IV fluids. Clear liquids for now. (3) Alcohol use disorder: Plan: Encouraged alcohol cessation. Continue thiamine and folate replacement. A WSS protocol in place. (4) Diarrhea: Plan: Due to enteritis. Supportive care. Stool study results pending (5) H/O gastroesophageal reflux (GERD): Plan: Currently on pantoprazole and Pepcid (6) Anemia: Plan: chronic, microcytic, hypochromic anemia . Iron level is normal however. Serial labs Plan Anticipate eventual discharge to home when medically stable Admission and Anticipated Discharge Date Admission Date: December 16, 2023 Subjective Alert and oriented. No distress. Hemoglobin is stable at 8.8. Iron level is normal. General surgery entry noted. GI consult pending. He remains n.p.o. on IV fluids. Continue IV Protonix and Pepcid for now Review of Systems 2 Review of Systems: Constitutional-no fever or chills ENT-no blurred vision, no double vision, no epistaxis, no sore throat Respiratory-no cough, no wheezing, no shortness of breath Cardiac-no palpitations, no chest pain, no syncope GI-no nausea, vomiting, diarrhea, melena, hematochezia. He had an episode of maroon stool this morning -no urinary retention, no urinary incontinence, no dysuria, no hematuria Musculoskeletal-no joint pain, no muscle tenderness Skin-no bruising, no rashes, no pruritus Neuro-no isolated weakness, no paresthesia, no weakness Psych-no depression, no anxiety Physical Exam 2 Physical Exam: General-alert and oriented x3, no fever, no chills HEENT-head atraumatic and normocephalic, pupils equal and reactive to light, extraocular muscles intact Neck-no lymphadenopathy or thyromegaly, trachea midline Chest-clear to auscultation. No rales, wheezing or rhonchi Cardiac-regular rate and rhythm, normal S1 and S2 Abdomen-normal bowel sounds, nontender, no hepatosplenomegaly Extremities-no cyanosis, clubbing, or edema Neuro-cranial nerves II through XII intact, motor and sensory function within normal limits, strength symmetrical, no focal deficits Psych-normal affect, normal mood Results & Data Results & Data Vital Signs (Past 12 Hours) Vital Signs Pulse Pulse Resp BP BP Pulse Ox O2 Del Method 12/17/23 11:19 96 H 22 141/108 H 100 Room Air 12/17/23 07:33 84 12/17/23 06:00 59 L 13 153/84 H 96 12/17/23 06:00 84 18 153/84 H 99 Room Air Laboratory Results 12/17/23 12:11 12/17/23 04:03 PG Care Time/CCT Total # of Minutes Spent Total Time Spent with Patient: Total time spent is greater than 50% in coordination of care (as documented) at patient's floor/unit and/or counseling patient: Coding Level of Care Code 13783 SUB INP/OBS CARE 3/50MIN Diagnoses SBO (small bowel obstruction) K56.609 Enteritis K52.9 Alcohol use disorder F10.90 Diarrhea R19.7 H/O gastroesophageal reflux (GERD) Z87.19 Anemia D64.9
--- NOTE | 2023-12-17 15:33 | Gastrointestinal Consultation ---
Date of Consultation December 17, 2023 Assessment & Plan (1) SBO (small bowel obstruction): As we are still in the early phase I think this is likely an infectious enteritis with edema of the TI leading to relative obstruction. This could be Crohn's but it is too early to make that call. I would like to observe him for now and let him resolve on his own like I think he will. time goes on, if he doesn't resolve then evaluation will be needed although it is tough to prep if there is obstruction. I told him if things resolve then he will need elective colonoscopy and I would do EGD as well. I will follow along. History of Present Illness Reason for Consultation: SBO, enteritis Attending Physician: Michael Sepulveda MD History of Present Illness 63 year old man who has had issues for the past five days with abdominal pain and bloating. He has had some diarrhea and some vomiting. Came to ED earlier this week but was able to go home. Yesterday things got worse with bloating and severe abdominal pain. Came back to ER and found to have ileal obstruction at TI and diffuse enteritis and SBO with "transition zone in left upper abdomen". He denies fever or chills. He does not have chronic issues with his gut. Today he had diarrhea and there was blood in it. He also vomited today and after both of those instances he felt better. He has not lost weight. There was some question of Crohn's in his family but his daughter says she does not have Crohn's disease. He has never had a colonoscopy. Earlier this year he had chest pain and had a CT of the chest which suggested esophagitis with "benign periesophageal lymphadenopathy". Allergies Allergy/AdvReac Type Severity Reaction Status Date / Time tree and shrub pollen Allergy Mild runny Verified 12/16/23 13:55 nose, itchy eyes, sneezing Home Medications Medication Instructions Recorded Confirmed Type pantoprazole 40 mg tablet,delayed 40 mg PO DAILY #30 tabs 10/29/23 12/16/23 Rx release sucralfate 100 mg/mL oral 10 ml PO QID #420 mL 10/29/23 12/16/23 Rx suspension (Carafate) dicyclomine 10 mg capsule 10 mg PO TID PRN abdominal pain 12/15/23 12/16/23 Rx #20 caps diphenhydramine HCl 25 mg capsule 25 mg PO DIRECTED PRN ALLERGIES 12/15/23 12/16/23 History (Benadryl) ondansetron 4 mg disintegrating 4 - 8 mg (1 - 2 x 4 mg) PO Q8H PRN 12/15/23 12/16/23 Rx tablet nausea and vomiting #14 tabs Patient History Medical History Alcohol use disorder H/O gastroesophageal reflux (GERD) Social History Smoking Status: Never smoker Hx Alcohol Use: Yes Alcohol type: beer and hard liquor Hx Substance Use: No Preferred Language: Citizen Of [place] Communication Ability: Effective Services Coordinator Required: No Beliefs That Will Affect Care: None Current Living Situation: Alone Feels Safe at Home: Yes Safety Concerns: Feels Safe At This Time Assistive Devices: None Review of Systems Review of Systems: All systems reviewed & are unremarkable except as noted in HPI & below Physical Exam Constitutional: WD/WN, vitals as above Eyes: PERRL, conjunctivae normal, anicteric sclerae ENMT: external ear and nose normal, oropharynx normal Neck: trachea midline, no thyromegaly Respiratory: normal respiratory effort, lungs clear to auscultation Cardiovascular: RRR, no murmur, no edema Gastrointestinal (Abdomen): normal bowel sounds, soft, nontender, no hepatosplenomegaly Inspection/Auscultation: + abdomen distended Musculoskeletal: Extremities: extremities normal to inspection Results & Data Vital Signs (Past 12 Hours) Vital Signs Pulse Pulse Resp BP BP Pulse Ox O2 Del Method 12/17/23 15:24 96 H 20 147/98 H 96 Room Air 12/17/23 11:19 96 H 22 141/108 H 100 Room Air 12/17/23 07:33 84 12/17/23 06:00 59 L 13 153/84 H 96 12/17/23 06:00 84 18 153/84 H 99 Room Air Laboratory Results 12/17/23 12/17/23 12/17/23 Range/Units 12:11 09:13 04:03 WBC 7.20 (4.8-10.8) K/ul RBC 4.63 L (4.70-6.10) M/uL Hgb 8.8 L 8.3 L (14.0-18.0) g/dl Hct 32.1 L 29.2 L (42.0-52.0) % MCV 63.1 L (80.0-100.0) fL MCH 17.9 L (25.0-34.0) pg MCHC 28.4 L (32.0-36.0) g/dL RDW Std Deviation 52.4 H (36.4-46.3) fL RDW Coeff of Rustam 23.9 H (11.5-14.5) % Plt Count 197 (130-400) K/uL MPV 9.9 (9.4-12.4) fL Immature Gran % (Auto) 0.4 % Neut % (Auto) 82.3 % Lymph % (Auto) 6.5 % [place] % (Auto) 10.1 % Eos % (Auto) 0.4 % Baso % (Auto) 0.3 % Neut # (Auto) 5.92 (1.40-6.50) K/uL Lymph # (Auto) 0.47 L (1.20-3.40) K/uL [place] # (Auto) 0.73 H (0.11-0.59) K/uL Eos # (Auto) 0.03 (0.00-0.50) K/uL Baso # (Auto) 0.02 (0.00-0.20) K/uL Immature Gran # (Auto) 0.03 (0.01-0.20) K/uL Polychromasia 1+ Hypochromasia Present Anisocytosis Present Microcytosis Present Target Cells 1+ Tear Drop Cells 1+ Stomatocytes 1+ Rouleaux 1+ Sodium 134 L (136-145) mmol/L Potassium 3.6 (3.5-5.1) mmol/L Chloride 103 (98-107) mmol/L Carbon Dioxide 26 (21-32) mmol/L Anion Gap 5 (3-11) BUN 8 (6-23) mg/dl Creatinine 0.82 (0.6-1.4) mg/dl Est Cr Clr Drug Dosing 92.2 ml/min Est GFR ( Amer) 108.3 ml/min Est GFR (Non-Af Amer) 93.5 ml/min BUN/Creatinine Ratio 9.8 L (10-20) Glucose 85 (70-99(Fasting)) mg/dl Calcium 7.7 L (8.6-10.3) mg/dl Magnesium 1.8 (1.7-2.4) mg/dl Iron 129 (35-175) mcg/dl Ferritin 8.5 (8-388) ng/ml Total Bilirubin 1.2 H (0.2-1.0) mg/dl AST 24 (13-39) U/L ALT 12 (7-52) U/L Alkaline Phosphatase 85 (34-104) U/L Total Protein 6.0 D (6.0-8.3) gm/dl Albumin 2.5 L (3.4-5.0) gm/dl Globulin 3.5 (2.5-4.0) gm/dl Albumin/Globulin Ratio 0.7 L (0.9-2) Vitamin B12 (180-914) pg/ml Folate (>5.38) ng/ml Urine Color Urine Appearance (Clear) Urine pH (4.5-7.5) Ur Specific [place] (1.000-1.030) Urine Protein (Negative) Urine Glucose (UA) (Negative) Urine Ketones (Negative) Urine Blood (Negative) Urine Nitrite (Negative) Urine Bilirubin (Negative) Urine Urobilinogen (Negative) Ur Leukocyte Esterase (Negative) Urine WBC (Auto) (0-5) /hpf Urine RBC (Auto) (0-4) /hpf U Hyaline Cast (Auto) (0-5) /lpf U Epithel Cells (Auto) (0-5) /lpf Urine Bacteria (Auto) (Negative) Stl C. cayetanensis PCR Not Detected (NotDetected) Stool Rotavirus A PCR Not Detected (NotDetected) Stl Adenov F 40/41 PCR Not Detected (NotDetected) Stool Astrovirus (PCR) Not Detected (NotDetected) Stool Campylobacter PCR Not Detected (NotDetected) Stl C. diff Tox B Gene Negative Cdiff Gene (Neg) Stool Cryptosporidium PCR Not Detected (NotDetected) Stl E.coli Shiga Tox PCR Not Detected (NotDetected) Stl Enterotoxigenic E PCR Not Detected (NotDetected) Stool EPEC (PCR) Not Detected (NotDetected) Stool EAEC (PCR) Not Detected (NotDetected) Stl E. histolytica PCR Not Detected (NotDetected) Stool Giardia Lamblia PCR Not Detected (NotDetected) Stool Salmonella PCR Not Detected (NotDetected) Stool Sapovirus (PCR) Not Detected (NotDetected) Stl P. shigelloides PCR Not Detected (NotDetected) Stl Shigella/EIEC PCR Not Detected (NotDetected) St Y.enterocolitica PCR Not Detected (NotDetected) Stool Vibrio (PCR) Not Detected (NotDetected) Stl Vibrio cholerae PCR Not Detected (NotDetected) Stl Norovirus GI/GII PCR Not Detected (NotDetected) 12/17/23 12/16/23 12/16/23 Range/Units 03:30 15:14 11:03 WBC (4.8-10.8) K/ul RBC (4.70-6.10) M/uL Hgb (14.0-18.0) g/dl Hct (42.0-52.0) % MCV (80.0-100.0) fL MCH (25.0-34.0) pg MCHC (32.0-36.0) g/dL RDW Std Deviation (36.4-46.3) fL RDW Coeff of Rustam (11.5-14.5) % Plt Count (130-400) K/uL MPV (9.4-12.4) fL Immature Gran % (Auto) % Neut % (Auto) % Lymph % (Auto) % [place] % (Auto) % Eos % (Auto) % Baso % (Auto) % Neut # (Auto) (1.40-6.50) K/uL Lymph # (Auto) (1.20-3.40) K/uL [place] # (Auto) (0.11-0.59) K/uL Eos # (Auto) (0.00-0.50) K/uL Baso # (Auto) (0.00-0.20) K/uL Immature Gran # (Auto) (0.01-0.20) K/uL Polychromasia Hypochromasia Present Anisocytosis Microcytosis Present Target Cells Tear Drop Cells Stomatocytes Rouleaux Sodium (136-145) mmol/L Potassium (3.5-5.1) mmol/L Chloride (98-107) mmol/L Carbon Dioxide (21-32) mmol/L Anion Gap (3-11) BUN (6-23) mg/dl Creatinine (0.6-1.4) mg/dl Est Cr Clr Drug Dosing ml/min Est GFR ( Amer) ml/min Est GFR (Non-Af Amer) ml/min BUN/Creatinine Ratio (10-20) Glucose (70-99(Fasting)) mg/dl Calcium (8.6-10.3) mg/dl Magnesium 2.0 (1.7-2.4) mg/dl Iron (35-175) mcg/dl Ferritin (8-388) ng/ml Total Bilirubin (0.2-1.0) mg/dl AST (13-39) U/L ALT (7-52) U/L Alkaline Phosphatase (34-104) U/L Total Protein (6.0-8.3) gm/dl Albumin (3.4-5.0) gm/dl Globulin (2.5-4.0) gm/dl Albumin/Globulin Ratio (0.9-2) Vitamin B12 475 (180-914) pg/ml Folate 7.64 (>5.38) ng/ml Urine Color [place] Urine Appearance Clear (Clear) Urine pH 6.0 (4.5-7.5) Ur Specific [place] > 1.045 H (1.000-1.030) Urine Protein 1+ H (Negative) Urine Glucose (UA) Negative (Negative) Urine Ketones 1+ H (Negative) Urine Blood Negative (Negative) Urine Nitrite Positive A (Negative) Urine Bilirubin 1+ H (Negative) Urine Urobilinogen Negative (Negative) Ur Leukocyte Esterase Negative (Negative) Urine WBC (Auto) 10-30 H (0-5) /hpf Urine RBC (Auto) 0-4 (0-4) /hpf U Hyaline Cast (Auto) 5-10 H (0-5) /lpf U Epithel Cells (Auto) 10-20 H (0-5) /lpf Urine Bacteria (Auto) Negative (Negative) Stl C. cayetanensis PCR (NotDetected) Stool Rotavirus A PCR (NotDetected) Stl Adenov F 40/41 PCR (NotDetected) Stool Astrovirus (PCR) (NotDetected) Stool Campylobacter PCR (NotDetected) Stl C. diff Tox B Gene (Neg) Stool Cryptosporidium PCR (NotDetected) Stl E.coli Shiga Tox PCR (NotDetected) Stl Enterotoxigenic E PCR (NotDetected) Stool EPEC (PCR) (NotDetected) Stool EAEC (PCR) (NotDetected) Stl E. histolytica PCR (NotDetected) Stool Giardia Lamblia PCR (NotDetected) Stool Salmonella PCR (NotDetected) Stool Sapovirus (PCR) (NotDetected) Stl P. shigelloides PCR (NotDetected) Stl Shigella/EIEC PCR (NotDetected) St Y.enterocolitica PCR (NotDetected) Stool Vibrio (PCR) (NotDetected) Stl Vibrio cholerae PCR (NotDetected) Stl Norovirus GI/GII PCR (NotDetected) Diagnostic Findings Abdomen/Pelvis CT 12/16/23 10:04 CT abd pelvis IV con only CLINICAL HISTORY: CONTINUED ABD PAIN, ABNORMAL CT 2 DAYS AGO TECHNIQUE: Helical axial images of the abdomen and pelvis were obtained and displayed. Automated dose lowering techniques and/or adjustment according to patient size were utilized for this exam. This exam was performed with intravenous contrast. CT DOSE: 1193.81 mGy.cm COMPARISON: Comparison is made to CT abdomen pelvis 12/15/2023 FINDINGS: Lower chest: No acute abnormality. Liver: Hepatic steatosis is noted. Gallbladder and biliary tree: No calcified gallstones. Normal caliber wall. No intra- or extrahepatic biliary ductal dilation. Pancreas: Unremarkable, no focal lesions. Spleen: Unremarkable. Adrenals: Unremarkable. Kidneys and ureters: Unremarkable. Bladder: Diffuse homogeneous wall thickening is seen. Reproductive organs: Prostatic calcifications are seen which may represent prior hemorrhage or granulomatous disease. Bowel: There are multiple dilated loops of thickened small bowel up to the level of the ileocecal valve. A proximal transition point suggested in the left upper quadrant. The colon is underdistended. The appendix is normal. Diverticulosis is seen without diverticulitis. There is a moderate hiatal hernia. Lymph nodes Retroperitoneal: Unremarkable. Pelvic: Unremarkable. Mesenteric: Unremarkable. Peritoneum: A small amount of peritoneal fluid is seen. Vessels: Atherosclerotic calcifications are seen. Abdominal wall: A fat-containing umbilical hernia is seen. Bones: Degenerative changes in the visualized spine. IMPRESSION: 1. Worsening findings of enteritis, now likely with a component of small bowel obstruction. 2. Hepatic steatosis. ACT 112: Negative or not required by law. Electronically signed by: Vignesh Licona M.D. 12/16/2023 12:28 PM Chest X-Ray 12/16/23 15:43 SINGLE VIEW CHEST CLINICAL HISTORY: Nausea and vomiting FINDINGS: An AP, portable, upright chest radiograph is compared to study dated 10/29/2023. Correlation is made with chest CT dated 10/29/2023. The heart is enlarged. The pulmonary vasculature is noncongested. Chronic interstitial thickening similar to previous. There is mild bibasilar scarring/atelectasis. The lungs and pleural spaces are otherwise clear. No pneumothorax is seen. The skeletal structures are osteopenic. There are chronic/healed right-sided rib fractures. IMPRESSION: Cardiomegaly with no active disease in the chest. ACT 112: Negative or not required by law. Electronically signed by: David Inman M.D. 12/16/2023 4:27 PM
[2023-12-17 18:08] LABS: Hematocrit (blood only) 35.3 % (42.0-52.0); Hemoglobin 9.5 g/dl (14.0-18.0)
[2023-12-18 06:07] LABS: Albumin Globulin Ratio 0.8 (0.9-2); Albumin Level 2.4 gm/dl (3.4-5.0); BUN Creatinine Ratio 13.5 (10-20); Bilirubin,Total 0.8 mg/dl (0.2-1.0); Calcium 7.4 mg/dl (8.6-10.3); Est GFR (African American) 104.7 ml/min; Est GFR (Non-African American) 90.4 ml/min; Globulin 3.1 gm/dl (2.5-4.0); Magnesium 1.8 mg/dl (1.7-2.4); Potassium 3.7 mmol/L (3.5-5.1); Total Protein 5.5 gm/dl (6.0-8.3)
[2023-12-18 06:32] LABS: Hemoglobin 7.5 g/dl (14.0-18.0); Mean Corpuscular Hemoglobin 17.8 pg (25.0-34.0); Mean Corpuscular Hgb Conc 27.8 g/dL (32.0-36.0); Mean Corpuscular Volume 64.1 fL (80.0-100.0); Mean Platelet Volume 9.7 fL (9.4-12.4); Platelet Count 173 K/uL (130-400); RDW Standard Deviation 53.7 fL (36.4-46.3); Red Blood Count 4.21 M/uL (4.70-6.10); White Blood Count 3.85 K/ul (4.8-10.8)
[2023-12-18 06:43] LABS: Anisocytosis Present; Basophils # (auto) 0.03 K/uL (0.00-0.20); Basophils % (auto) 0.8 %; Eosinophils # (auto) 0.04 K/uL (0.00-0.50); Hypochromasia Present; Immature Granulocytes # (auto) 0.01 K/uL (0.01-0.20); Immature Granulocytes % (auto) 0.3 %; Lymphocytes # (auto) 0.59 K/uL (1.20-3.40); Lymphocytes % (auto) 15.3 %; Microcytosis Present; Monocytes # (auto) 0.65 K/uL (0.11-0.59); Monocytes % (auto) 16.9 %; Neutrophils # (auto) 2.53 K/uL (1.40-6.50); Neutrophils % (auto) 65.7 %; Tear Drop Cells 1+
[2023-12-18] MEDS ORDERED: SODIUM CHLORIDE 0.9% 250 ML IV PRN (08:41)
--- NOTE | 2023-12-18 09:48 | Gastroenterology Progress Note ---
Date of Service December 18, 2023 Assessment & Plan (1) SBO (small bowel obstruction): Plan: He seems to be improving fairly rapidly. Would watch his H/H. Will start him on liquids. Hopefully will be ready for discharge tomorrow if continues to improve. Admission and Anticipated Discharge Date Admission Date: December 16, 2023 Subjective Feeling much better today. Continues with diarrhea but passing gas as well. Stomach is almost back to normal. Has had blood with bowel movements but amount lessening each time and his last bowel movement this morning had no blood in it. Hgb 7.5 today Physical Exam Physical Exam: He looks well Constitutional: WD/WN, vitals as above Results & Data Vital Signs (Past 12 Hours) Vital Signs Temp Pulse Pulse Resp BP Pulse Ox O2 Del Method 12/18/23 08:16 36.6 C 70 18 151/71 H 97 Room Air 12/18/23 07:35 74 12/18/23 04:22 36.5 C 91 H 18 143/71 H 97 Room Air 12/17/23 23:34 36.4 C L 98 H 18 151/74 H 98 Room Air 12/17/23 21:57 76
--- NOTE | 2023-12-18 12:48 | Hospitalist Progress Note ---
Date of Service December 18, 2023 Assessment & Plan (1) SBO (small bowel obstruction): Plan: Appears to be partial related to the underlying enteritis. General surgery entry noted. No surgical intervention at this time. Clear liquids have been started. Will advance as tolerated. Conservative management. (2) Enteritis: Plan: More than likely a viral etiology. GI consultation noted. No endoscopy indicated at this time. Continue IV fluids. Clear liquids for now. Advance as tolerated (3) Alcohol use disorder: Plan: Encouraged alcohol cessation. Continue thiamine and folate replacement. A WSS protocol in place. (4) Diarrhea: Plan: Due to enteritis. Supportive care. Stool study results pending (5) H/O gastroesophageal reflux (GERD): Plan: Currently on pantoprazole and Pepcid (6) Anemia: Plan: chronic, microcytic, hypochromic anemia . Iron level is normal however. Hemoglobin is down to 7.5 and he has given consent for transfusion of 1 unit. This appears to be dilutional from IV fluids as there is no gross evidence of GI bleeding. Serial labs Plan Hopeful discharge to home tomorrow, December 18 Admission and Anticipated Discharge Date Admission Date: December 16, 2023 Subjective Alert and oriented. No new problems. He agrees to transfusion of 1 unit packed red blood cells for hemoglobin down to 7.5. GI entry noted. Clear liquids have been started. Hopefully he can go home tomorrow, December 18 Review of Systems 2 Review of Systems: Constitutional-no fever or chills ENT-no blurred vision, no double vision, no epistaxis, no sore throat Respiratory-no cough, no wheezing, no shortness of breath Cardiac-no palpitations, no chest pain, no syncope GI-no nausea, vomiting, diarrhea, melena, hematochezia. He had an episode of maroon stool this morning -no urinary retention, no urinary incontinence, no dysuria, no hematuria Musculoskeletal-no joint pain, no muscle tenderness Skin-no bruising, no rashes, no pruritus Neuro-no isolated weakness, no paresthesia, no weakness Psych-no depression, no anxiety Physical Exam 2 Physical Exam: General-alert and oriented x3, no fever, no chills HEENT-head atraumatic and normocephalic, pupils equal and reactive to light, extraocular muscles intact Neck-no lymphadenopathy or thyromegaly, trachea midline Chest-clear to auscultation. No rales, wheezing or rhonchi Cardiac-regular rate and rhythm, normal S1 and S2 Abdomen-normal bowel sounds, nontender, no hepatosplenomegaly Extremities-no cyanosis, clubbing, or edema Neuro-cranial nerves II through XII intact, motor and sensory function within normal limits, strength symmetrical, no focal deficits Psych-normal affect, normal mood Results & Data Results & Data Vital Signs (Past 12 Hours) Vital Signs Temp Pulse Pulse Resp BP BP Pulse Ox 12/18/23 12:20 36.9 C 75 18 148/81 H 96 12/18/23 12:05 36.7 C 78 18 157/84 H 98 12/18/23 12:03 36.7 C 77 18 157/84 H 98 12/18/23 11:43 36.5 C 88 18 151/71 H 99 12/18/23 11:37 36.5 C 88 18 151/71 H 99 12/18/23 08:16 36.6 C 70 18 151/71 H 97 12/18/23 07:35 74 12/18/23 04:22 36.5 C 91 H 18 143/71 H 97 O2 Del Method 12/18/23 12:20 12/18/23 12:05 12/18/23 12:03 12/18/23 11:43 12/18/23 11:37 Room Air 12/18/23 08:16 Room Air 12/18/23 07:35 12/18/23 04:22 Room Air Laboratory Results 12/18/23 05:27 12/18/23 05:27 PG Care Time/CCT Total # of Minutes Spent Total Time Spent with Patient: Total time spent is greater than 50% in coordination of care (as documented) at patient's floor/unit and/or counseling patient: Coding Level of Care Code 71858 SUB INP/OBS CARE 3/50MIN Diagnoses SBO (small bowel obstruction) K56.609 Enteritis K52.9 Alcohol use disorder F10.90 Diarrhea R19.7 H/O gastroesophageal reflux (GERD) Z87.19 Anemia D64.9
[2023-12-18 18:16] LABS: Hematocrit (blood only) 32.4 % (42.0-52.0); Hemoglobin 9.1 g/dl (14.0-18.0)
[2023-12-19 06:25] LABS: BUN Creatinine Ratio 12.1 (10-20); Creatinine Clr Calc Pharmacy 84.1 ml/min; Est GFR (African American) 102.9 ml/min; Est GFR (Non-African American) 88.8 ml/min; Potassium 3.5 mmol/L (3.5-5.1)
[2023-12-19 06:38] LABS: Hematocrit (blood only) 34.3 % (42.0-52.0); Hemoglobin 9.8 g/dl (14.0-18.0); Mean Corpuscular Hemoglobin 19.1 pg (25.0-34.0); Mean Corpuscular Hgb Conc 28.6 g/dL (32.0-36.0); Mean Corpuscular Volume 66.7 fL (80.0-100.0); Mean Platelet Volume 9.6 fL (9.4-12.4); Platelet Count 206 K/uL (130-400); RDW Coefficient of Variation 24.6 % (11.5-14.5); RDW Standard Deviation 57.1 fL (36.4-46.3); Red Blood Count 5.14 M/uL (4.70-6.10); White Blood Count 8.15 K/ul (4.8-10.8)
[2023-12-19 06:47] LABS: Anisocytosis Present; Basophils # (auto) 0.02 K/uL (0.00-0.20); Basophils % (auto) 0.2 %; Eosinophils # (auto) 0.06 K/uL (0.00-0.50); Eosinophils % (auto) 0.7 %; Hypochromasia Present; Immature Granulocytes # (auto) 0.02 K/uL (0.01-0.20); Immature Granulocytes % (auto) 0.2 %; Lymphocytes # (auto) 0.61 K/uL (1.20-3.40); Lymphocytes % (auto) 7.5 %; Microcytosis Present; Monocytes # (auto) 0.97 K/uL (0.11-0.59); Monocytes % (auto) 11.9 %; Neutrophils # (auto) 6.47 K/uL (1.40-6.50); Neutrophils % (auto) 79.5 %; Polychromasia 1+; Target Cells 1+
--- NOTE | 2023-12-19 09:26 | Discharge Summary ---
Date of Service December 19, 2023 Admission HPI Per Admitting Provider Hossein is a 63 year old male with a PMH significant for alcohol abuse (currently drinking 6 beers daily) and GERD who was sent to the [facility] ED by his PCP after he was diagnosed with enteritis on 12/14/23 but had ongoing abdominal pain and poor oral intake. He remained stable in the ED. Labs were significant for an MCV of 63, MCHC of 28, stable hgb of 9.9, lactate WNL, and sodium of 132. CT of the abd/pelvis w/IV con was read as "1. Worsening findings of enteritis, now likely with a component of small bowel obstruction. 2. Hepatic steatosis.". Prior to admission the patient was given 1L NSS, 4 mg IV Zofran, 15 mg IV toradol. The ED staff spoke to the General Surgery team who will follow while the patient is admitted. At the time of the exam the patient was sitting in bed in no acute distress. He states that he has been having generalized abdominal pain and non-bloody diarrhea for the past 2 months which prompted his initial ED visit on 12/14/23. He was discharged on Carafate and pantoprazole which he was taking without significant improvement in his symptoms. He has been having worsening abdominal pain which started in the BL lower abdomen and moves up into his epigastric region. He rated the pain a 10/10 on arrival, it is currently resolved. He states that the pain was a burning sensation. He has been a long time alcohol abuser. He was drinking up to 24 beers daily approximately 6 weeks ago. Over the past 6 weeks he had been slowly weaning his alcohol intake to prevent withdrawal. He does have previous history of withdrawal when he stops drinking but denies the need for previous medical admissions and denies previous withdrawal seizures. His last drink was 2 beers last evening. This am he was experiencing severe abdominal pain and recurrent nausea/vomiting promoting ED arrival. He denies recent fever, chills, chest pain, SOB, hematemesis, coffee ground emesis, dysuria, hematuria, melena, bright red BM's, LE swelling, and recent trauma. He is a full code and would want his sister to make medical decisions for him if he cannot make them himself. Please refer to Dr. Grigsby' attestation for any changes to the treatment plan Principal Diagnosis Viral enteritis with lower GI bleeding, acute on chronic anemia Discharge Exam General-alert and oriented x3, no fever, no chills HEENT-head atraumatic and normocephalic, pupils equal and reactive to light, extraocular muscles intact Neck-no lymphadenopathy or thyromegaly, trachea midline Chest-clear to auscultation. No rales, wheezing or rhonchi Cardiac-regular rate and rhythm, normal S1 and S2 Abdomen-normal bowel sounds, nontender, no hepatosplenomegaly Extremities-no cyanosis, clubbing, or edema Neuro-cranial nerves II through XII intact, motor and sensory function within normal limits, strength symmetrical, no focal deficits Psych-normal affect, normal mood Discharge Data Allergies Allergy/AdvReac Type Severity Reaction Status Date / Time tree and shrub pollen Allergy Mild runny Verified 12/16/23 13:55 nose, itchy eyes, sneezing Consultations 12/16/23 15:53 ED Decision to Admit Stat 12/16/23 16:03 Consult General Surgery Routine 12/16/23 18:23 Consult Gastroenterology Routine Ordered Studies 12/16/23 10:04 CT abd pelvis IV con only Stat Hospital Course (1) SBO (small bowel obstruction): Appears to be partial related to the underlying enteritis. General surgery entry noted. No surgical intervention at this time. He is now having bowel movements. Diet has been advanced. (2) Enteritis: More than likely a viral etiology. GI consultation noted. No endoscopy indicated at this time. Treated while hospitalized with IV fluids. Diet has been advanced and well-tolerated (3) Alcohol use disorder: Encouraged alcohol cessation. Continue thiamine and folate replacement. [facility] protocol in place. No withdrawal symptoms (4) Diarrhea: Due to enteritis. Supportive care. Stool studies negative (5) H/O gastroesophageal reflux (GERD): Treated while hospitalized with pantoprazole and Pepcid (6) Anemia: chronic, microcytic, hypochromic anemia . Iron level is normal however. Transfused 1 unit for hemoglobin 7.5. Now improved to 9.8. Serial labs Plan Home today, December 18 Total Time Total Time Spent Total Time Spent (In Minutes): 45-minute Discharge Plan Discharge Items Patient Disposition: Home - Self-Care Reason For Visit: SBO, ENTERITIS, ALCOHOL ABUSE Discharge Diagnosis: Suspected viral enteritis, suspected lower GI bleeding, acute on chronic anemia, partial bowel obstruction Activity: Resume your previous activity Non-emergency contact: Primary Care Provider Call non-emergency contact if: your symptoms worsen Follow-up/Referrals: Dejuan Oliva MD [Primary Care Provider] - Diet: Regular Addtl Attending Provider Instructions: All medications remain the same. Take a multivitamin daily Pending Studies at Discharge: No Stand-Alone Forms: My [facility], Smoking Cessation Medications and DC Order Prescriptions: Continued sucralfate [Carafate] 100 mg/mL suspension 10 ml PO QID Qty: 420 0RF Rx Instructions: swish in mouth and swallow; use after food/drink: May substitute tablets as a slurry. pantoprazole 40 mg tablet,delayed release (DR/EC) 40 mg PO DAILY Qty: 30 0RF diphenhydramine HCl [Benadryl] 25 mg Capsule 25 mg PO DIRECTED PRN (Reason: ALLERGIES) dicyclomine 10 mg capsule 10 mg PO TID PRN (Reason: abdominal pain) Qty: 20 0RF ondansetron 4 mg tablet,disintegrating 4 - 8 mg PO Q8H PRN (Reason: nausea and vomiting) Qty: 14 0RF Discharge Orders: Discharge Order (Routine); Ordered 12/19/23 Ordered By: Michael Sepulveda Admission Data Admit Date/Time: 12/16/23 15:39 Attending Provider: Michael Sepulveda Admit Provider: Dino Grigsby Primary Care Provider: Dejuan Oliva Other Providers: Dino Grigsby; Hany Myles; Bandar Larson Jr Coding Level of Care Code 55383 INP/OBS DISCH >30 MIN Diagnoses SBO (small bowel obstruction) K56.609 Enteritis K52.9 Alcohol use disorder F10.90 Diarrhea R19.7 H/O gastroesophageal reflux (GERD) Z87.19 Anemia D64.9
--- NOTE | 2023-12-19 09:34 | Gastroenterology Progress Note ---
Date of Service December 19, 2023 Assessment & Plan (1) SBO (small bowel obstruction): Plan: All seems resolved. He is going home. He tells me he is going to stick with liquids until he feels he can tolerated regular food. Admission and Anticipated Discharge Date Admission Date: December 16, 2023 Subjective going home. Feels good today but had a little setback when starting on liquids yesterday. Cleared up with walking Physical Exam Physical Exam: He looks well Constitutional: WD/WN, vitals as above Results & Data Vital Signs (Past 12 Hours) Vital Signs Temp Pulse Pulse Resp BP Pulse Ox O2 Del Method 12/19/23 08:06 36.3 C L 69 18 134/78 92 Room Air 12/19/23 07:09 77 12/18/23 22:53 36.6 C 75 18 135/65 97 Room Air 12/18/23 21:51 69
--- NOTE | 2023-12-29 15:56 | Coding Query ---
ANEMIA To promote full compliance with coding requirements relating to patient care, physician participation is requested in all cases of property and supply officer uncertainty. Please assist us with the question(s) below: Coding Question(s): The record reflects the following clinical findings: per D/S Anemia: chronic,microcytic,hypochromic. Iron level is normal however. Transfused 1 unit for Hgb 7.5 improves to 9.8 If these findings are indicative of anemia, please specify the known or suspected type by placing an "X" within the parenthesis (x). If other, please document type. Examples are: ( ) Acute blood loss anemia ( ) Chronic blood loss anemia ( ) Anemia of chronic disease ( ) Aplastic anemia ( ) Iron deficient anemia (x ) Anemia, unspecified or other ( ) Other: (please specify) Thank you Radha SERRANO
== END 2023-12-19 11:11 | disposition home or self-care (01) | DRG 390 ==
LOC: ED 09:26 → EDINP 15:39 → SUATTDRO 15:39 → 2N 17:46

== ENCOUNTER 2024-01-09 11:26 | Inpatient (IN) ==
--- OUTSIDE RECORDS SUMMARY | 2024-01-09 11:36 | External Medical Summary | Continuity of Care Document ---
Author Name Unknown Organization [facility] [id number] [address] [place] [id number] Care Team Providers Care Poker Supervisor Name Role Phone Ashanti Olivakiki Primary Care Physician [phone] Encounter [facility] [id number] Date(s): 12/21/23 - 12/21/23 [facility] [address] [address] [place] [phone] Encounter Diagnosis SBO (small bowel obstruction)(Discharge Diagnosis) - 12/21/23 Enteritis(Discharge Diagnosis) - 12/21/23 Body mass index [BMI] 29.0-29.9, adult(Discharge Diagnosis) - 12/21/23 Alcohol use disorder(Discharge Diagnosis) - 12/21/23 Chronic GERD(Discharge Diagnosis) - 12/21/23 Lesion of cecum(Discharge Diagnosis) - 12/21/23 Hepatic steatosis(Discharge Diagnosis) - 12/21/23 B12 deficiency(Discharge Diagnosis) - 12/21/23 Iron deficiency anemia(Discharge Diagnosis) - 12/21/23 Discharge Disposition: Home or Self Care Attending Physician: MD Michelle, Benson B Allergies, Adverse Reactions, Alerts No Known Medication Allergies Substance Reaction Severity Status Pollen Nasal congestion Active Assessment and Plan Extracted from: Title:TCM Author:DO Donaldson Vinay Date:12/09 12/04 1.SBO (small bowel obstruc tion) acute uncomplicated -presumed 2/2 enteritis -advance diet as tolerated, stay well hydrated 2.Enteritis acute uncomplicated -presumed viral - stool studies negative -advance diet as tolerated, stay well hydrated 3.Alcohol use disorder chronic, improved -no alcohol use in the past 2 weeks and patient adamant about stopping fdc at the last with very little use -did discusspharmacotherapy and AA to help with cessation - defersat this time -cont.daily thiamine 4.Chronic GERD chronic, stable -cont. daily PPI 5.Lesion of cecum -CT A/P- mucosal irregularity and hyperenhancement at the base of the cecum. This may be on an inflammatory basis. An underlying mucosal lesion is not excluded. -once inflammation from enteritis/sbo resolved, will order colonoscopy for further evaluation -f/u 1 month - order colonoscopy at that time 6.Hepatic steatosis -seen in CT imaging - likely 2/2 alcohol abuse -LFTs wnl 7.B12 deficiency chronic, improving -B12 in 400s. Cont. daily B12 supplementation. Recheck in 3 months. 8.Iron deficiency anemia chronic, not controlled -low Hgb, iron, ferritin. Iron supplementation on hold due to GI symptoms. He did require 1 unit of blood during hospitalization. Likely cause of his fatigue. -advised to restart iron supplementation once tolerating advanced diet -recheck cbc and ferritin in 2-3 months - if no improvement may require IV infusions Immunizations Given and Recorded Vaccine Date Status Refusal Reason tetanus/diphtheria/pertuss, acel (Tdap) 11/10/23 G iven tetanus/diphtheria/pertuss, acel (Tdap) 05/25/08 R ecorded SARS-CoV-2 (COVID-19) Ad26 vaccine 03/07/21 Record ed Medications ferrous sulfate 325 mg (65 mg elemental iron) oral delayed release tablet Start: 11/03/23 7:20:00 EST, 1 tab, PO, q48h Start Date: 11/03/23 Status: Ordered pantoprazole 40 mg oral delayed release tablet Start: 11/03/23 7:17:00 EST, 1 tab, PO, Daily Start Date: 11/03/23 Status: Ordered sildenafil 100 mg oral tablet Start: 12/08/23 8:48:00 EST, 1 tab, PO, Daily, Disp# 90 tab, Refills: 3, Brand Medically Necessary,Pharmacy: [facility] Start Date: 12/08/23 Stop Date: 12/02/24 Status: Ordered sucralfate 1 g/10 mL oral suspension Start: 11/03/23 7:18:00 EST, PRN: dyspepsia Start Date: 11/03/23 Status: Ordered thiamine 100 mg oral tablet Start: 11/02/23 11:43:00 EST, 1 tab, PO, Daily, Disp# 90 tab, Refills: 3, [facility]acy: [facility] Start Date: 11/02/23 Stop Date: 10/27/24 Status: Ordered Vitamin B12 100 mcg oral tablet Start: 11/10/23 9:09:00 EST, 1 tab, PO, Daily Start Date: 11/10/23 Status: Ordered Mental Status 12/21/23 Barriers to Learning one year None evide nt Mandatory Health Literacy Documentation Yes Health Literacy Communication Barriers N ever Primary Language Kittitian Problem List Condition Confirmation Course Effective Dates Status Health St atus Informant Alcohol use disorder Confirmed Active Allergic dermatitis Confirmed Active Esophagitis Confirmed Active Family history of abdominal aortic aneurysm (AAA) Confirmed Active Chronic GERD Confirmed Active Erectile dysfunction Confirmed Active Iron deficiency anemia Confirmed Active BMI 29.0-29.9,adult Confirmed Active Hepatic steatosis Confirmed Active Weight disorder Confirmed Active Diagnosis Diagnosis Type Effective Dates Health Status Clinical Service Informant Chronic GERD Discharge Diagnosis 12/21/23 SBO (small bowel obstruction) Discharge Diagnosis 12/21/23 Enteritis Discharge Diagnosis 12/21/23 Body mass index [BMI] 29.0-29.9, adult Discharge Diagnosis 12/21/23 Non-Specified Alcohol use disorder Discharge Diagnosis 12/21/23 Hepatic steatosis Discharge Diagnosis 12/21/23 B12 deficiency Discharge Diagnosis 12/21/23 Lesion of cecum Discharge Diagnosis 12/21/23 Iron deficiency anemia Discharge Diagnosis 12/21/23 Procedures Procedure Date Related Diagnosis Body Site Status Shave biopsy 04/16/22 Completed Elbow 1 11/20/10 Completed arm surgery Completed Hernia repair 2 Completed Vasectomy Completed [place] Te[facility] Completed 1right sx 2X2, 2001 & 1961 Vital Signs Most recent to oldest [Reference Range]: 1 Height 168.5 cm (12/21/23 12:51 PM) Patient Weight 84.7 kg (12/21/23 12:51 PM) Body Mass Index 29.83 kg/m2 (12/21/23 12:51 PM) Temperature [36.5-37.9 DegC] 36.9 DegC (12/21/23 12:51 PM) Blood Pressure 132/68mmHg (12/21/23 12:51 PM) BP Location # 1 Left Arm (12/21/23 12:51 PM) Social History Social History Type Response Smoking Status Never smoked cigaret leonor Sex Male FCM Outpt Note * MD Michelle, Benson Moncada: MODIFY MD Martinez Mark B: MODIFY Event Display: FCM Outpt Note Authored Date: Chief Complaint Pt here for hosptial admission. History of Present Illness TRANSITIONAL CARE INITIAL CONTACT (WITHIN 2 BUSINESS DAYS OF DISCHARGE) Date of Contact: _ 12/20/23 Discharge Date: _ 12/19/23 Discharge Facility: _ [facility] Diagnosis/Problems:_ SBO, enteritis, AL Other PMH:_ Sources of information: _Patient _Family member: _ _Caregiver: _ X_Hospital Discharge Summary _Hospital fax _Other: _ Diagnosis/problems/procedures/performed: Medication changes: _YesX_No Medication list updated: _XYes_No Medication list reviewed with patient by Motorcycle Designer:_Yes_No Needs referral or lab: _ YesX_No Additional information needed and requested: _ NO Other care management issues/services needed: _ Follow-up appointment needed: _XWithin seven days of discharge (highly complex) _Within 14 days of discharge (moderately complex) Visit Date: _ gave pts number to front end developer javascript html css to schedule hospital f/u per pts request. Time: _ Clinician: _ Time spent with care coordination activities: _Review of EMR/Facility Med Records 5 min _Contact with Pt/auger operator 2 min _Communicating with team members [facility] HPI: PMHx significant for alcohol abuse (currently drinking 6 beers daily) and GERD who was sent to the [facility] ED by his PCP after he was diagnosed with enteritis on 12/14/23 but had ongoing abdominal pain and poor oral intake. He remained stable in the ED. Labs were significant for an MCV of 63, MCHC of 28, stable hgb of 9.9, lactate WNL, and sodium of 132. CTA/P: Worsening findings of enteritis, nowlikely with a component of small bowel obstruction. Hepatic steatosis. On discharge, tolerated clears/fulls and had not yet tried regular diet. Tolerating fluids. Did have multiple BMs. Did try eggs yesterday which he was able to tolerate. Has not progressed diet further. Still with some abdominal distention and discomfort but not significant. Supplementing B12 1000mcg and thiamine daily. Did start iron supplementation but has been on hold since abdominal symptoms started. SBO (small bowel obstruction): Appears to be partially related to the underlying enteritis. Gen surg consulted - no surgical intervention at this time. Enteritis: More than likely a viral etiology.GI consulted- No endoscopy indicated at this time. Alcohol use disorder: Encouraged alcohol cessation.Continue thiamine and folate replacement. AWSS protocol was in place. No withdrawal symptoms. Diarrhea Due to enteritis.Supportive care. Stool studies negative H/O gastroesophageal reflux (GERD) Treated while hospitalized with pantoprazole and Pepcid Anemia Chronic, microcytic, hypochromic anemia. Iron level is normal however. Transfused 1 unit for hemoglobin 7.5. Now improved to 9.8. Review of Systems As stated above in HPI and below: Constitutional: +fatigue. denies fevers, fatigue CV: denies chest pain Resp: denies shortness of breath GI: +loose stools. denies nausea, vomiting, constipation : denies pain with urination, change in urinary frequency Physical Exam Vitals & Measurements T:36.9C BP:132/68 SpO2:98% HT:168.5cm WT:84.700kg(Dosing) WT:84.7kg BMI:29.83 PHQ2 Data(Data Documented on:12/21/2023 12:49) Emotional health assessment NEGATIVE General:in no acute distress, pleasant HEENT: No scleral injection or discharge. Moist mucous membranes. Lungs:CTAB, no wheezes/rales/rhonchi Cardiovascular:RRR.No murmurs.No extremity edema. 2+ distal peripheral pulses. Abdomen:+BS. Soft, nontender, and nondistended.No hepatosplenomegaly. 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 daily PPI 5.Lesion of cecum -CT A/P- mucosal irregularity and hyperenhancement at the base of the cecum. This may be on an inflammatory basis. An underlying mucosal lesion is not excluded. -once inflammation from enteritis/sbo resolved, will order colonoscopy for further evaluation -f/u 1 month - order colonoscopy at that time 6.Hepatic steatosis -seen in CT imaging - likely 2/2 alcohol abuse -LFTs wnl 7.B12 deficiency chronic, improving -B12 in 400s. Cont. daily B12 supplementation. Recheck in 3 months. 8.Iron deficiency anemia chronic, not controlled -low Hgb, iron, ferritin. Iron supplementation on hold due to GI symptoms. He did require 1 unit ofblood during hospitalization. Likely cause of his fatigue. -advised to restart iron supplementation once tolerating advanced diet -recheck cbc and ferritin in 2-3 months - if no improvement may require IV infusions Attestation I saw the patient and confirmed the phelps portions of the history and physical exam and agree with the above impression and plan. Offered AA. Pt declines and expresses he has tried that in the past. Will need close output follow up , particularly with nutrition and working up iron deficiency. Problem List/Past Medical History Ongoing Alcohol use disorder Allergic dermatitis BMI 29.0-29.9,adult Chronic GERD Erectile dysfunction Esophagitis Family history of abdominal aortic aneurysm (AAA) Hepatic steatosis Iron deficiency anemia Weight disorder Historical Rash Procedure/Surgical History Shave biopsy | Service Date: 04/16/2022 Elbow | Service Date: 11/20/2010 Vasectomy [place] arm surgery Hernia repair Medications cyanocobalamin(Vitamin B12 100 mcg oral tablet), 100 mcg= 1 tab, PO, Daily ferrous sulfate(ferrous sulfate 325 mg (65 mg elemental iron) oral delayed release tablet), 325 mg=1 tab, PO, q48h pantoprazole(pantoprazole 40 mg oral delayed release tablet), 40 mg= 1 tab, PO, Daily sildenafil(sildenafil 100 mg oral tablet), 100 mg= 1 tab, PO, Daily, 3 refills sucralfate(sucralfate 1 g/10 mL oral suspension), PRN thiamine(thiamine 100 mg oral tablet), 100 mg= 1 tab, PO, Daily, 3 refills Allergies No Known Medication Allergies PollenNasal congestion Social History Smoking Status Never smoked cigarettes Alcohol Use:Current Frequency:Daily Average drinks per episode in last year:3 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 CAD (coronary artery disease).: Father. Cancer: Mother. Heart disease: Father. Leukemia: Unknown. Lung cancer..: Mother. Obesity: Father. Osteoporosis: Mother. Smoker.: Mother. Von Willebrand disease..: Son. Health Status Family Member(s) Immunizations Vaccine Date Status tetanus/diphtheria/pertuss, acel (Tdap) 11/10/2023 Given SARS-CoV-2 (COVID-19) Ad26 vaccine 03/07/2021 Recorded tetanus/diphtheria/pertuss, acel (Tdap) 05/25/2008 Recorded Recommendations Health Maintenance Pending(in the next year) OverDue Adult Influenza Vaccine due04/09/23and every 1year Due Adult COVID-19 Vaccination due12/21/23Unknown Frequency Adult Social Determinants of Health Screening due12/21/23Unknown Frequency Colorectal Cancer Screening due12/21/23Unknown Frequency Pneumococcal Vaccine Adults and Adolescents with Chronic Illness due12/21/23One-time only Shingles Vaccine due12/21/23One-time only Satisfied(in the past 1 year) Satisfied Adult Tdap/Td Vaccine on11/10/23.Satisfied by RODRIGUEZ Cuellar Emma Body Mass Index on12/21/23.Satisfied by CELIA Yadav Paula Lipid Screening on12/08/23.Satisfied by Contributor_system, [employer] Electronic Signature on File Electronically Reviewed/Signed by: Dl Donaldson MD Author Signature Dt/Tm:12/21/2023 02:49 PM Resident Department of Family Medicine Electronically Reviewed/Signed by: Benson Martinez MD Cosigner Signature Dt/Tm: 12/22/2023 05:23 AM Department of Family Medicine [facility] Patient Care team information Care Team Personnel Name: MD Hazel, Shantelyiisrael Position: Resident Member Role: Primary Care Provider Address: Address: [address] [place] [address] [place] Care Team Related Persons Name: MOE SMALL"
[2024-01-09] MEDS: SODIUM CHLORIDE 0.9% 1,000 ML IV SCH (11:46)
[2024-01-09] MEDS: OPTIRAY 320 100ml IV ONE (11:58)
[2024-01-09 12:01] LABS: iSTAT Creatinine 1.1 mg/dl (0.6-1.3); iSTAT Hemoglobin 13.6 g/dl (14.0-18.0); iSTAT Ionized Calcium 1.09 mmol/l (1.12-1.32); iSTAT Potassium 4.5 mmol/L (3.3-5.0)
[2024-01-09 12:07] LABS: INR 1.1 (0.9-1.1); Partial Thromboplastin Ratio 1.1; Partial Thromboplastin Time 31 Seconds (21-31); Prothrombin Time 11.5 Seconds (9.0-12.0)
[2024-01-09 12:14] LABS: Albumin Level 3.2 gm/dl (3.4-5.0); BUN Creatinine Ratio 5.7 (10-20); Bilirubin Direct 0.1 mg/dl (0-0.2); Bilirubin,Total 0.7 mg/dl (0.2-1.0); Calcium 8.2 mg/dl (8.6-10.3); Creatinine Clr Calc Pharmacy 66.4 ml/min; Est GFR (African American) 86.5 ml/min; Est GFR (Non-African American) 74.7 ml/min; Potassium 4.5 mmol/L (3.5-5.1); Total Protein 7.7 gm/dl (6.0-8.3)
[2024-01-09 12:52] LABS: Hematocrit (blood only) 37.3 % (42.0-52.0); Hemoglobin 10.7 g/dl (14.0-18.0); Mean Corpuscular Hemoglobin 19.3 pg (25.0-34.0); Mean Corpuscular Hgb Conc 28.7 g/dL (32.0-36.0); Mean Corpuscular Volume 67.3 fL (80.0-100.0); Mean Platelet Volume 9.2 fL (9.4-12.4); Platelet Count 285 K/uL (130-400); RDW Coefficient of Variation 23.4 % (11.5-14.5); RDW Standard Deviation 54.4 fL (36.4-46.3); Red Blood Count 5.54 M/uL (4.70-6.10); White Blood Count 5.83 K/ul (4.8-10.8)
--- NOTE | 2024-01-09 12:57 | CT Scan Report ---
CT SCAN OF THE ABDOMEN AND PELVIS WITH IV CONTRAST CLINICAL HISTORY: Generalized abdominal pain. Nausea. COMPARISON STUDY: Abdominal CT dated 12/16/2023. TECHNIQUE: Following the IV administration of 94 cc of Optiray 320, CT scan of the abdomen and pelvi s is performed from the lung bases to the proximal femora. Images are reviewed in the axial, sagittal , and coronal planes. IV contrast was administered without complication. A dose lowering technique wa s utilized adhering to the principles of ALARA. CT DOSE: 1056.38 mGy.cm FINDINGS: Lung bases: The heart is normal in size and without pericardial effusion. The coronary arteries are d ensely calcified. There is mild aneurysmal dilatation of the partially visualized ascending thoracic aorta which measures up to 4.0 cm. The lung bases are clear. There is a small hiatal hernia. The dist al esophagus appears circumferentially thick walled. Liver: The contrast-enhanced liver is normal in size and contour. Attenuation is diffusely diminished indicating steatosis. There is no intrahepatic biliary ductal dilatation. The hepatic veins and port al veins are patent. Gallbladder: Unremarkable. Spleen: Normal in size and attenuation. Pancreas: Unremarkable. Adrenal glands: Unremarkable. Kidneys: The contrast enhanced kidneys are normal in size and without hydronephrosis. The kidneys enh ance symmetrically. Abdominal vasculature: The abdominal aorta is normal in course and caliber nothing moderate to advanc ed atherosclerotic calcification. Bowel: There is wall thickening and hyperemia of the distal/terminal ileum, greatest at the terminal ileum and best seen on axial image #181. The upstream small bowel is slightly distended and fluid-bogdan led, measuring up to 4.1 cm diameter. There is trace interloop fluid. The colon is decompressed. Ther e is no pneumatosis intestinalis or portal venous gas. There is mild colonic diverticulosis without C T evidence of acute diverticulitis. Irregular wall thickening and hyperemia is again seen in the base of the cecum on image #175. The appendix is well-visualized and normal. Peritoneum: There is no intraperitoneal free air or abdominal ascites. There is a fat-containing umbi lical hernia. Lymphadenopathy: None. Pelvic viscera: The prostate gland is enlarged and heterogeneous. The bladder wall is thickened/trabe culated indicating chronic outlet obstruction Skeletal structures: There are bilateral pars defects at L5. Mild lumbosacral spondylosis is observed . No lytic or blastic lesions are seen. There are chronic/healed bilateral rib fractures. IMPRESSION: 1. Again seen is evidence of a nonspecific enteritis involving the distal/terminal ileum. This is gre atest just above the ileocecal junction. 2. The upstream small bowel loops are distended and fluid-filled with interloop fluid, and the colon is decompressed. This indicates at least partial small bowel obstruction, which could be related to m ucosal edema and/or possibly underlying stricture. This is also similar to the 12/16/2023 examination. 3. Irregular wall thickening and hyperemia at the base of the cecum is unchanged. If not already perf ormed, colonoscopy is recommended for further assessment to exclude underlying mucosal lesion. 4. There is no pneumatosis intestinalis or portal venous gas. No intraperitoneal free air is seen. 5. Hepatic steatosis. 6. The distal esophagus appears circumferentially thick-walled. Correlate clinically for evidence of esophagitis. If warranted this could be further assessed with endoscopy. 7. Additional findings as above. ACT 112: Negative or not required by law. Electronically signed by: David Inman M.D. 01/09/2024 12:54 PM
[2024-01-09 13:00] LABS: Anisocytosis Present; Basophils # (auto) 0.03 K/uL (0.00-0.20); Basophils % (auto) 0.5 %; Eosinophils # (auto) 0.06 K/uL (0.00-0.50); Immature Granulocytes # (auto) 0.02 K/uL (0.01-0.20); Immature Granulocytes % (auto) 0.3 %; Lymphocytes # (auto) 0.87 K/uL (1.20-3.40); Lymphocytes % (auto) 14.9 %; Microcytosis Present; Monocytes # (auto) 0.55 K/uL (0.11-0.59); Monocytes % (auto) 9.4 %; Neutrophils % (auto) 73.9 %; Polychromasia 1+
--- NOTE | 2024-01-09 13:52 | History & Physical Report ---
Date of Service January 09, 2024 Assessment & Plan (1) SBO (small bowel obstruction): Plan: Recurrent partial small bowel obstruction, Cecal wall thickening, esophageal thickening noted symptoms were preceded by 812 bowel movements daily, stool PCR pending, which suddenly decreased and now is having to strain to get small amounts of stool out in the last 2 to 3 days with absence of flatus N.p.o. NGT initially ordered, patient declined. Reports he has had pain but no nausea and vomiting, agreeable if nausea/vomiting develop IVFM, Zofran, apap/morphine for pain control Surgery consulted GI previously consulted with prior SBO, at that time suspected to be due to infectious enteritis. Was recommended for observation at that time. Patient was to follow-up for elective colonoscopy/EGD following resolution, inpatient evaluation was discussed although deferred due to prep limitations with acute obstruction. Patient also has a family history of colon cancer in his father, and presents with recurrent SBO CT w/ cecal abnormality potentially concerning for malignancy redemonstrated, and chronic microcytic iron deficiency anemia (2) Anemia: Plan: Hematochezia, microcytic Anemia -With recent low ferritin, elevated transferrin saturation and severe microcytosis. b12 normal, folate normal Iron deficiency anemia, with concern for malignancy as noted above GI following Patient taking oral iron daily. Repeat with transferrin saturation percentage has been ordered. If consistent with iron deficiency anemia especially given potential constipating effects of oral iron can pursue 3x 300 mg Venofer infusions Patient with bright red blood per rectum last 24 hours. H&h trended - DDx includes etoh induced suppression. Reticulocyte count/reticulocyte index pending. Folate/thiamine switched to IV (3) Alcohol use disorder: Plan: History of alcohol abuse with withdrawal seizures, up to 24 beers daily and J /November AW protocol, thiamine, focal acid ordered Denies history of seizures Patient reports he has been cutting back in anticipation of getting a colonoscopy. Recently has been drinking around 4-6 beers per day, last drink was last night Plan DVT prophylaxis: Pharmacoprophylaxis held due to hematochezia and anemia. SCDs Disposition: Medical surgical Diet: N.p.o. CODE STATUS: Full History of Present Illness Primary Care Provider: Dejuan Oliva MD Hossein is a 63-year-old male recently admitted 12/15- 01/01 for small bowel obstruction/enteritis and with a past medical history of alcohol abuse approximately 6 beers daily and GERD who presents with severe abdominal pain similar to his bowel obstruction requiring admission earlier in the month. He does not have leukocytosis or CAROL. CT shows nonspecific enteritis of the dis nkechi/terminal ileum, partial small bowel obstruction? Related to stricture/mucosal edema, cecal edema, and a thick-walled esophagus. No pneumatosis or free air are noted. Normally with BM loose 8-10 daily even without eating a lot. Last 2 days they have been very loose, smaller, with straining and now 3-4 days with minimal coming out. Bright red blood per rectum which is new in the last day. Had some episodes of bright red blood last month with prior SBO, none since. Denies melena. Father had a history of colorectal cancer. No history of colitis. He was pending a colonoscopy as an outpatient but has unfortunately not remained well enough long off to get this. Reports she currently has severe spasm-like pain in his midline upper abdomen. He has not vomited and does not feel nauseous but has waves of pain and discomfort No lightheadedness, dizziness No chest pain, chest pressure Feels strong stomach cramping, discomfort, and nausea which comes in cycles. No vomiting No heart problems, lung problems, or kidney problems Takes OTC benadryl as needed. Used to take H2 tasneem and PPI as needed, took ppi until ~2 days ago after last discharge. Got 1 unit of blood last month. Previously with high alcohol intake up to 2830 beers per day, in the last 2 months has been weaning and anticipating of a colonoscopy and has been drinking around 46 beers per day with his last drink last night. Has been through withdrawal before without seizures, does not feel like he is in withdrawal currently. Medical History: Reviewed Medications: Reviewed Surgical History: Reviewed Family history: Reviewed Allergies: Reviewed Social History: Reviewed Code Status: Full Allergies Allergy/AdvReac Type Severity Reaction Status Date / Time tree and shrub pollen Allergy Mild runny Verified 12/16/23 13:55 nose, itchy eyes, sneezing Home Medications Medication Instructions Recorded Confirmed Type pantoprazole 40 mg tablet,delayed 40 mg PO DAILY #30 tabs 10/29/23 01/09/24 Rx release sucralfate 100 mg/mL oral 10 ml PO QID #420 mL 10/29/23 01/09/24 Rx suspension (Carafate) dicyclomine 10 mg capsule 10 mg PO TID PRN abdominal pain 12/15/23 01/09/24 Rx #20 caps diphenhydramine HCl 25 mg capsule 25 mg PO DIRECTED PRN ALLERGIES 12/15/23 01/09/24 History (Benadryl) ondansetron 4 mg disintegrating 4 - 8 mg (1 - 2 x 4 mg) PO Q8H PRN 12/15/23 01/09/24 Rx tablet nausea and vomiting #14 tabs Past Med/Surg History Medical History (Updated 01/09/24 @ 14:18 by Afshin Contreras MD) Alcohol use disorder H/O gastroesophageal reflux (GERD) Social History Smoking Status: Never smoker Hx Alcohol Use: Yes Alcohol type: beer and hard liquor Hx Substance Use: No Preferred Language: Indonesian Communication Ability: Effective Cargo Handler Required: No Beliefs That Will Affect Care: None Current Living Situation: Alone Feels Safe at Home: Yes Assistive Devices: None Physical Exam Physical Exam: General: A&Ox3. NAD. Cooperative. HEENT: Atraumatic, normocephalic. Vision and hearing grossly intact Pulm: CTAB A&P. -wheezes, -rales, -rhonchi. Symmetrical chest rise. No increased work of breathing. No respiratory distress. Cardiac: RRR, -mrg. Radial pulses intact and symmetrical. Abdominal: Midline upper abdominal tenderness to palpation without guarding/rebound. Softly distended. Bowel sounds diminished Extremities: Moves all extremities equally, ambulates independently to bathroom Results & Data Results & Data Vital Signs (Past 12 Hours) Vital Signs Temp Pulse Pulse Resp BP BP Pulse Ox 01/09/24 13:27 36.8 C 83 18 180/107 H 95 01/09/24 12:28 82 01/09/24 11:49 88 18 168/113 H 96 01/09/24 11:31 36.9 C 89 19 158/72 H 99 O2 Del Method 01/09/24 13:27 01/09/24 12:28 01/09/24 11:49 Room Air 01/09/24 11:31 Room Air PG Care Time/CCT Total # of Minutes Spent Total Time Spent with Patient: Total time spent is greater than 50% in coordination of care (as documented) at patient's floor/unit and/or counseling patient: Coding Level of Care Code 00552 INT INP/OBS CARE MIN Diagnoses SBO (small bowel obstruction) K56.609 Anemia D64.9 Alcohol use disorder F10.90
[2024-01-09 13:54] LABS: Appearance Urine Clear (Clear); Bacteria Urine Automated Negative (Negative); Bilirubin Urine Negative (Negative); Blood Urine Negative (Negative); Color Urine Yellow; Epithelial Cell Urine Auto 20-30 /lpf (0-5); Glucose Urine UA Negative (Negative); Ketones Urine Negative (Negative); Leukocyte Esterase Urine 1+ (Negative); Nitrite Urine Negative (Negative); Protein Urine Trace (Negative); RBC Urine Automated 0-4 /hpf (0-4); Specific Gravity Urine 1.031 (1.000-1.030); Urobilinogen Urine Negative (Negative); pH Urine 6.5 (4.5-7.5)
[2024-01-09] MEDS ORDERED: MoRPHine SULFATE 2 MG/ML CARP IV PRN (13:56)
--- NOTE | 2024-01-09 14:28 | Emergency Department Note ---
History of Present Illness General Chief Complaint: GI Assessment Stated Complaint: POSS BOWEL BLOCKAGE Time Seen by Provider: 01/09/24 11:40 History of Present Illness Provider Complaint: abdominal pain Onset (ago): 2 day(s) Pain Consistency: intermittent Location: diffuse Maximum Pain Intensity: 10 Current Pain Intensity: 9 Quality: + stabbing and + sharp Relieved By: + nothing Exacerbated By: + eating Context: + history of similar episodes (Patient reports history of small bowel obstructions and states his pain today feels like a previous small bowel obstruction); no foreign travel, no possible food poisoning, no sick contacts, no recent antibiotic use, no recent surgery/procedure or no recent injury Associated Symptoms: no nausea, no vomiting, no diarrhea, no fever, no chills, no constipation, no dysuria, no hematemesis, no hematochezia, no melena, no hematuria, no headache, no back pain, no chest pain and no breathing difficulty Home Medications Medication Instructions Recorded Confirmed Type pantoprazole 40 mg tablet,delayed 40 mg PO DAILY #30 tabs 10/29/23 01/09/24 Rx release sucralfate 100 mg/mL oral 10 ml PO QID #420 mL 10/29/23 01/09/24 Rx suspension (Carafate) dicyclomine 10 mg capsule 10 mg PO TID PRN abdominal pain 12/15/23 01/09/24 Rx #20 caps diphenhydramine HCl 25 mg capsule 25 mg PO DIRECTED PRN ALLERGIES 12/15/23 01/09/24 History (Benadryl) ondansetron 4 mg disintegrating 4 - 8 mg (1 - 2 x 4 mg) PO Q8H PRN 12/15/23 01/09/24 Rx tablet nausea and vomiting #14 tabs Allergies Allergy/AdvReac Type Severity Reaction Status Date / Time tree and shrub pollen Allergy Mild runny Verified 12/16/23 13:55 nose, itchy eyes, sneezing Past Med/Surg History Medical History Alcohol use disorder H/O gastroesophageal reflux (GERD) Social History Smoking Status: Never smoker Hx Alcohol Use: Yes Alcohol type: beer and hard liquor Hx Substance Use: No Preferred Language: Mauritian Communication Ability: Effective Upper Trimmer Required: No Beliefs That Will Affect Care: None Current Living Situation: Alone Feels Safe at Home: Yes Assistive Devices: None Physical Exam 2 Vital Signs: Vital Signs - 24 hr 01/09/24 11:31 01/09/24 11:49 01/09/24 12:28 Temperature 36.9 C Temperature Source Temporal Artery Sc an Pulse Rate 89 82 Pulse Rate [Apical ] 88 Respiratory Rate 19 18 Respiratory Effort / Characteristics Non-Labored Sponta neous Non-Labored Sponta neous Respiratory Depth Normal Normal Respiratory Patter n Regular Blood Pressure 158/72 H Blood Pressure [Le ft Arm] 168/113 H Blood Pressure Becca n 100 Blood Pressure Becca n [Left Arm] 131 Pulse Oximetry 99 96 Oxygen Delivery Me thod Room Air Room Air Sepsis Recent Feve r Within 48 Hours No Sepsis New/Unexpla ined Change in Men nkechi Status No Sepsis Action Take n by Nursing No Action Required 01/09/24 13:27 Temperature 36.8 C Temperature Source Oral Pulse Rate Pulse Rate [Apical ] 83 Respiratory Rate 18 Respiratory Effort / Characteristics Respiratory Depth Respiratory Patter n Blood Pressure Blood Pressure [Le ft Arm] 180/107 H Blood Pressure Ebcca n Blood Pressure Becca n [Left Arm] 131 Pulse Oximetry 95 Oxygen Delivery Me thod Sepsis Recent Feve r Within 48 Hours Sepsis New/Unexpla ined Change in Men nkechi Status Sepsis Action Take n by Nursing Physical Exam: Physical Exam GENERAL: oriented to person, place, and time. appears well-developed and well- nourished. HENT: Exam performed. - Head: Normocephalic and atraumatic. EYES: Conjunctivae and EOM are normal. Right eye exhibits no discharge. Left eye exhibits no discharge. No scleral icterus. NECK: Normal range of motion. Neck supple. No JVD present. CV: Normal rate, regular rhythm, normal heart sounds and intact distal pulses. There is no peripheral edema. Palpable radial pulses bue. PULM/CHEST: Effort normal and breath sounds normal. No respiratory distress. No stridor. no wheezes. no rales. ABD: The abdomen is soft. There is diffuse tenderness to palpation. No guarding or rigidity. NEURO: Motor and sensation grossly intact. SKIN: Skin is warm and dry. He is not diaphoretic. PSYCH: normal mood and affect. Behavior is normal. Judgment and thought content normal. Course Course 1140: The patient was evaluated in room A11. A complete history and physical exam was performed Cardiac monitoring: An order was placed for continuous cardiac monitoring. The monitor shows a rate of 80 with sinus rhythm interpreted by me 1300: Vital signs stable. Labs within normal limits. Imaging does again show a partial small bowel obstruction. Patient will be admitted to the [facility] team. Administered Medications Sodium Chloride (Nss) 1,000 mls @ 80 mls/hr IV .[id number] [facility] Stop: 02/08/24 11:44 Last Admin: 01/09/24 11:46 Dose: 80 mls/hr Documented By: JOSE Discontinued Medications Ioversol (Optiray 320 100ml) 94 ml IV ONCE ONE Stop: 01/09/24 11:58 Last Admin: 01/09/24 11:58 Dose: 94 ml Documented By: YUDY Medical Decision Making Medical Records Attestation: I reviewed the patient's medical records. External medical records reviewed. Patient was admitted from December 15 to December 19, 2023 for small bowel obstruction. Laboratory Data Attestation: I reviewed the patient's lab results. 01/09/24 11:43 01/09/24 11:43 Lab Results 01/09/24 01/09/24 01/09/24 Range/Units 11:43 11:48 13:43 WBC 5.83 (4.8-10.8) K/ul RBC 5.54 (4.70-6.10) M/uL Hgb 10.7 L (14.0-18.0) g/dl POC Hgb 13.6 L (14.0-18.0) g/dl Hct 37.3 L (42.0-52.0) % POC Hct 40 L (42-52) % MCV 67.3 L (80.0-100.0) fL MCH 19.3 L (25.0-34.0) pg MCHC 28.7 L (32.0-36.0) g/dL RDW Std Deviation 54.4 H (36.4-46.3) fL RDW Coeff of Rustam 23.4 H (11.5-14.5) % Plt Count 285 (130-400) K/uL MPV 9.2 L (9.4-12.4) fL Immature Gran % (Auto) 0.3 % Neut % (Auto) 73.9 % Lymph % (Auto) 14.9 % [place] % (Auto) 9.4 % Eos % (Auto) 1.0 % Baso % (Auto) 0.5 % Neut # (Auto) 4.30 (1.40-6.50) K/uL Lymph # (Auto) 0.87 L (1.20-3.40) K/uL [place] # (Auto) 0.55 (0.11-0.59) K/uL Eos # (Auto) 0.06 (0.00-0.50) K/uL Baso # (Auto) 0.03 (0.00-0.20) K/uL Immature Gran # (Auto) 0.02 (0.01-0.20) K/uL Polychromasia 1+ Anisocytosis Present Microcytosis Present PT 11.5 (9.0-12.0) Seconds INR 1.1 (0.9-1.1) APTT 31 (21-31) Seconds PTT Ratio 1.1 POC Sodium 138 (135-144) mmol/L Sodium 134 L (136-145) mmol/L POC Potassium 4.5 (3.3-5.0) mmol/L Potassium 4.5 (3.5-5.1) mmol/L POC Chloride 100 L (101-112) mmol/L Chloride 101 (98-107) mmol/L Carbon Dioxide 24 (21-32) mmol/L POC Total CO2 24 (24-31) mmol/L Anion Gap 9 (3-11) POC Anion Gap 19.0 (16-25) mmol/L POC BUN 4 L (7-18) mg/dl BUN 6 (6-23) mg/dl Creatinine 1.05 (0.6-1.4) mg/dl POC Creatinine 1.1 (0.6-1.3) mg/dl Est Cr Clr Drug Dosing 66.4 ml/min Est GFR ( Amer) 86.5 ml/min Est GFR (Non-Af Amer) 74.7 ml/min BUN/Creatinine Ratio 5.7 L (10-20) Glucose 107 H (70-99(Fasting)) mg/dl POC Glucose (other) 109 H (70-99) mg/dl Calcium 8.2 L (8.6-10.3) mg/dl POC Ioniz Calcium [place]ida 1.09 L (1.12-1.32) mmol/l Total Bilirubin 0.7 (0.2-1.0) mg/dl Direct Bilirubin 0.1 (0-0.2) mg/dl AST 22 (13-39) U/L ALT 13 (7-52) U/L Alkaline Phosphatase 122 H (34-104) U/L Total Protein 7.7 (6.0-8.3) gm/dl Albumin 3.2 L (3.4-5.0) gm/dl Lipase 75 (11-82) U/L Urine Color Yellow Urine Appearance Clear (Clear) Urine pH 6.5 (4.5-7.5) Ur Specific [place] 1.031 H (1.000-1.030) Urine Protein Trace H (Negative) Urine Glucose (UA) Negative (Negative) Urine Ketones Negative (Negative) Urine Blood Negative (Negative) Urine Nitrite Negative (Negative) Urine Bilirubin Negative (Negative) Urine Urobilinogen Negative (Negative) Ur Leukocyte Esterase 1+ H (Negative) Urine WBC (Auto) 10-30 H (0-5) /hpf Urine RBC (Auto) 0-4 (0-4) /hpf U Hyaline Cast (Auto) 5-10 H (0-5) /lpf U Epithel Cells (Auto) 20-30 H (0-5) /lpf Urine Bacteria (Auto) Negative (Negative) Imaging Data Radiologist's Impression: Abdomen/Pelvis CT 01/09/24 11:41 CT SCAN OF THE ABDOMEN AND PELVIS WITH IV CONTRAST CLINICAL HISTORY: Generalized abdominal pain. Nausea. COMPARISON STUDY: Abdominal CT dated 12/16/2023. TECHNIQUE: Following the IV administration of 94 cc of Optiray 320, CT scan of the abdomen and pelvis is performed from the lung bases to the proximal femora. Images are reviewed in the axial, sagittal, and coronal planes. IV contrast was administered without complication. A dose lowering technique was utilized adhering to the principles of ALARA. CT DOSE: 1056.38 mGy.cm FINDINGS: Lung bases: The heart is normal in size and without pericardial effusion. The coronary arteries are densely calcified. There is mild aneurysmal dilatation of the partially visualized ascending thoracic aorta which measures up to 4.0 cm. The lung bases are clear. There is a small hiatal hernia. The distal esophagus appears circumferentially thick walled. Liver: The contrast-enhanced liver is normal in size and contour. Attenuation is diffusely diminished indicating steatosis. There is no intrahepatic biliary ductal dilatation. The hepatic veins and portal veins are patent. Gallbladder: Unremarkable. Spleen: Normal in size and attenuation. Pancreas: Unremarkable. Adrenal glands: Unremarkable. Kidneys: The contrast enhanced kidneys are normal in size and without hydronephrosis. The kidneys enhance symmetrically. Abdominal vasculature: The abdominal aorta is normal in course and caliber nothing moderate to advanced atherosclerotic calcification. Bowel: There is wall thickening and hyperemia of the distal/terminal ileum, greatest at the terminal ileum and best seen on axial image #181. The upstream small bowel is slightly distended and fluid-filled, measuring up to 4.1 cm diameter. There is trace interloop fluid. The colon is decompressed. There is no pneumatosis intestinalis or portal venous gas. There is mild colonic diverticulosis without CT evidence of acute diverticulitis. Irregular wall thickening and hyperemia is again seen in the base of the cecum on image #175. The appendix is well-visualized and normal. Peritoneum: There is no intraperitoneal free air or abdominal ascites. There is a fat-containing umbilical hernia. Lymphadenopathy: None. Pelvic viscera: The prostate gland is enlarged and heterogeneous. The bladder wall is thickened/trabeculated indicating chronic outlet obstruction Skeletal structures: There are bilateral pars defects at L5. Mild lumbosacral spondylosis is observed. No lytic or blastic lesions are seen. There are chronic/healed bilateral rib fractures. IMPRESSION: 1. Again seen is evidence of a nonspecific enteritis involving the distal/terminal ileum. This is greatest just above the ileocecal junction. 2. The upstream small bowel loops are distended and fluid-filled with interloop fluid, and the colon is decompressed. This indicates at least partial small bowel obstruction, which could be related to mucosal edema and/or possibly underlying stricture. This is also similar to the 12/16/2023 examination. 3. Irregular wall thickening and hyperemia at the base of the cecum is unchanged. If not already performed, colonoscopy is recommended for further assessment to exclude underlying mucosal lesion. 4. There is no pneumatosis intestinalis or portal venous gas. No intraperitoneal free air is seen. 5. Hepatic steatosis. 6. The distal esophagus appears circumferentially thick-walled. Correlate clinically for evidence of esophagitis. If warranted this could be further assessed with endoscopy. 7. Additional findings as above. ACT 112: Negative or not required by law. Electronically signed by: David Inman M.D. 01/09/2024 12:54 PM ECG Data Attestation: I personally reviewed and interpreted this ECG as follows: Indication: abdominal pain Rate (beats per minute): 83 Rhythm: normal sinus Findings: + 1st degree AV block; no ST depression, no ST elevation or no prolonged QT MDM Narrative 1140: The patient was evaluated in room A11. A complete history and physical exam was performed Cardiac monitoring: An order was placed for continuous cardiac monitoring. The monitor shows a rate of 80 with sinus rhythm interpreted by me 1300: Vital signs stable. Labs within normal limits. Imaging does again show a partial small bowel obstruction. Patient will be admitted to the [facility] team. Impression & Plan SBO (small bowel obstruction) Discharge Plan Visit Data Chief Complaint: GI Assessment Stated Complaint: POSS BOWEL BLOCKAGE ED Provider: Moe Reyes Discharge Problem: SBO (small bowel obstruction) Patient Disposition: Admitted As Inpatient Forms Stand Alone Forms: My [facility] Prescriptions Prescriptions: No Action sucralfate [Carafate] 100 mg/mL suspension 10 ml PO QID Qty: 420 0RF Rx Instructions: swish in mouth and swallow; use after food/drink: May substitute tablets as a slurry. pantoprazole 40 mg tablet,delayed release (DR/EC) 40 mg PO DAILY Qty: 30 0RF diphenhydramine HCl [Benadryl] 25 mg Capsule 25 mg PO DIRECTED PRN (Reason: ALLERGIES) dicyclomine 10 mg capsule 10 mg PO TID PRN (Reason: abdominal pain) Qty: 20 0RF ondansetron 4 mg tablet,disintegrating 4 - 8 mg PO Q8H PRN (Reason: nausea and vomiting) Qty: 14 0RF Referrals Referrals: Dejuan Oliva MD [Primary Care Provider] -
[2024-01-09] MEDS: LACTATED RINGER'S 1,000 ML IV SCH (14:37)
[2024-01-09 14:55] LABS: Reticulocyte % 0.75 % (0.50-2.00); Reticulocytes # 0.04 10^6/uL (0.020-0.100)
[2024-01-09] MEDS: ACETAMINOPHEN 1,000 MG/100 ML VIAL IV PRN (15:18)
[2024-01-09] MEDS: MoRPHine SULFATE 4 MG/ML 1 ML CARP\\VIAL IV PRN (15:18)
[2024-01-09] MEDS: ONDANSETRON INJ 2 MG/ML 2 ML VIAL IV PRN (15:23)
[2024-01-09 16:16] LABS: Adenovirus F 40/41 PCR Not Detected (NotDetected); Astrovirus PCR Not Detected (NotDetected); Campylobacter PCR Not Detected (NotDetected); Cryptosporidium PCR Not Detected (NotDetected); Cyclospora cayetanensis PCR Not Detected (NotDetected); Entamoeba histolytica PCR Not Detected (NotDetected); Enteroaggregative E.coli(EAEC) Not Detected (NotDetected); Enteropathogenic E.coli (EPEC) Not Detected (NotDetected); Enterotoxigenic E.coli (ETEC) Not Detected (NotDetected); Giardia lamblia PCR Not Detected (NotDetected); Norovirus GI/GII PCR Not Detected (NotDetected); Plesiomonas shigelloides PCR Not Detected (NotDetected); Rotavirus A PCR Not Detected (NotDetected); Salmonella PCR Not Detected (NotDetected); Sapovirus PCR Not Detected (NotDetected); Shiga-like Toxin E.coli (STEC) Not Detected (NotDetected); Shigella/Enteroinvasive E.coli Not Detected (NotDetected); Vibrio cholerae PCR Not Detected (NotDetected); Vibrio species PCR Not Detected (NotDetected); Yersinia enterocolitica PCR Not Detected (NotDetected)
[2024-01-09] MEDS ORDERED: LORazepam 1 MG in SYRINGE 0.5 ML IV PRN (16:50)
[2024-01-09] MEDS ORDERED: NALOXONE HCL 0.4 MG/1 ML VIAL/CARP IV PRN (16:58)
[2024-01-09] MEDS: FOLIC ACID 1 MG in SYRINGE 9.8 ML IV SCH (17:38)
[2024-01-09] MEDS: THIAMINE HCL 100 MG in SYRINGE 9 ML IV SCH (17:38)
[2024-01-09] MEDS: HYDROmorphone INJ 1 MG/ML SYRINGE IV PRN (17:39)
--- NOTE | 2024-01-09 20:11 | Surgery Consultation ---
<Statement entered by Merle Gonzalez DO - 01/09/24 20:16> I agree with this plan Date of Consultation January 09, 2024 Assessment & Plan (1) SBO (small bowel obstruction): Patient has been admitted on the hospital service. We recommend proceeding as follows from surgical respective: Implement n.p.o. status Provide IV fluid for hydration follow serial labs At the present time the patient is not exhibiting any nausea or vomiting and essentially has a benign abdominal exam. I therefore do not feel an NG tube is required. I did discuss with the patient that if he develops any worsening of his abdominal exam or nausea and vomiting ensue we will need to rethink the use of this modality I suspect the patient has a potential partial small bowel obstruction likely due to a nonspecific enteritis. I do feel the patient would benefit from a colonoscopy at some point due to the abnormalities noted on his CT scan. This can likely be pursued on an outpatient basis. Additional recommendations be forthcoming based on his clinical course as it unfolds. History of Present Illness Reason for Consultation: Small bowel obstruction Attending Physician: Afshin Contreras MD History of Present Illness This is a 63-year-old male who presented the emergency department secondary to a cramp-like abdominal pain. Patient says that his symptoms have been going on for approximate 24 hours. He does note that he had 2 small bowel movements since arrival to the emergency department but since have not passed any flatus. He does note that his bowel movements were somewhat bloody. He specifically denies any nausea or vomiting. He denies any fevers, shakes, or chills. Patient notes that his only abdominal surgeries were bilateral inguinal herniorrhaphies. Patient further relates that he was recently admitted to [facility] in December of this year. He was admitted from 12/16/2023 through 12/19/2023. During this admission patient was admitted secondary to a small bowel obstruction felt to be related to an underlying enteritis. General surgery saw the patient in consultation and the patient did not require any surgery. Patient's records were reviewed and he did have a CT scan of the abdomen and pelvis on 12/16/2023 that showed findings consistent with an enteritis with c oncern for a component of small bowel obstruction. Patient further reports that he has never had a colonoscopy and he does note that he was in the process of trying to arrange a colonoscopy since his most recent hospital admission but has not yet had the opportunity to to get this scheduled. Since arrival to hospital the patient has had labs and imaging which independent reviewed. The patient did have a CT scan of the abdomen and pelvis. This showed the patient had evidence of a nonspecific enteritis of the distal/terminal ileum greatest above the ileocecal junction. There is some upstream small bowel distention raising the concern for partial small bowel obstructionthe interpreting radiologist felt that this could be related to mucosal edema. There is also some irregular wall thickening at the base of the cecum. There is no pneumatosis intestinalis or portal venous gas. There is no intraperitoneal free air. Labs include a CBC her white blood cell count and platelet count were normal. Hemoglobin and hematocrit were 10.7 and 13.6. Chemistry profile revealed a sodium of 134 with a normal potassium. BUN and creatinine were both within normal range. There is no elevation of patient's LFTs other than a slight elevation of the alkaline phosphatase at 122. At the time my interview the patient was resting comfortably in bed he was no distress. Allergies Allergy/AdvReac Type Severity Reaction Status Date / Time tree and shrub pollen Allergy Mild runny Verified 12/16/23 13:55 nose, itchy eyes, sneezing Home Medications Medication Instructions Recorded Confirmed Type pantoprazole 40 mg tablet,delayed 40 mg PO DAILY #30 tabs 10/29/23 01/09/24 Rx release sucralfate 100 mg/mL oral 10 ml PO QID #420 mL 10/29/23 01/09/24 Rx suspension (Carafate) dicyclomine 10 mg capsule 10 mg PO TID PRN abdominal pain 12/15/23 01/09/24 Rx #20 caps diphenhydramine HCl 25 mg capsule 25 mg PO DIRECTED PRN ALLERGIES 12/15/23 01/09/24 History (Benadryl) ondansetron 4 mg disintegrating 4 - 8 mg (1 - 2 x 4 mg) PO Q8H PRN 12/15/23 01/09/24 Rx tablet nausea and vomiting #14 tabs Patient History Medical History Alcohol use disorder H/O gastroesophageal reflux (GERD) Social History Smoking Status: Never smoker Hx Alcohol Use: Yes Alcohol type: beer Hx Substance Use: No Preferred Language: Thai Communication Ability: Effective Warp Tying Machine Knotter Required: No Beliefs That Will Affect Care: None Current Living Situation: Alone Feels Safe at Home: Yes Safety Concerns: Feels Safe At This Time Assistive Devices: None Review of Systems Constitutional: no fever and no chills Ear, Nose, Mouth, Throat: no ear pain Respiratory: no cough and no dyspnea Cardiovascular: no chest pain Gastrointestinal: as per Subjective / HPI Genitourinary: no dysuria Musculoskeletal: no back pain Integumentary: no rash Neurologic: no localized weakness Physical Exam Constitutional: WD/WN, vitals as above Eyes: no conjunctival abnormality ENMT: Ears: no hearing impairment Mouth: no oropharynx abnormality Neck: trachea midline Respiratory: normal respiratory effort; no respiratory distress and no labored breathing Cardiovascular: Rate/Rhythm: regular rate and regular rhythm Gastrointestinal (Abdomen): Abdomen is overall soft with minimal distention. There is no rebound tenderness or guarding and no pain with palpation Musculoskeletal: No calf tenderness Skin: no rashes Neurologic: moves all extremities Psychiatric: A+Ox3, euthymic affect Results & Data Vital Signs (Past 12 Hours) Vital Signs Temp Pulse Pulse Pulse Resp BP BP 01/09/24 19:51 36.5 C 91 H 16 168/89 H 01/09/24 16:30 36.6 C 87 16 162/90 H 01/09/24 15:40 78 13 01/09/24 15:30 90 16 01/09/24 15:30 179/116 H 01/09/24 15:20 74 13 01/09/24 15:10 77 15 01/09/24 15:00 79 17 01/09/24 15:00 166/92 H 01/09/24 14:50 81 22 01/09/24 14:40 76 13 01/09/24 14:31 74 16 01/09/24 14:31 148/91 H 01/09/24 14:30 89 21 01/09/24 14:20 75 14 01/09/24 14:18 77 15 01/09/24 13:50 83 20 01/09/24 13:40 80 16 01/09/24 13:30 180/107 H 01/09/24 13:30 83 23 01/09/24 13:27 36.8 C 83 18 180/107 H 01/09/24 13:20 88 19 01/09/24 13:10 80 21 01/09/24 13:00 80 16 01/09/24 13:00 186/100 H 01/09/24 12:57 92 H 20 01/09/24 12:40 85 15 01/09/24 12:30 75 19 01/09/24 12:30 162/92 H 01/09/24 12:28 82 01/09/24 12:20 78 19 01/09/24 12:10 82 23 01/09/24 12:02 164/87 H 01/09/24 12:02 80 15 01/09/24 11:49 88 18 168/113 H 01/09/24 11:31 36.9 C 89 19 158/72 H Pulse Ox O2 Del Method 01/09/24 19:51 97 Room Air 01/09/24 16:30 95 Room Air 01/09/24 15:40 98 01/09/24 15:30 97 01/09/24 15:30 01/09/24 15:20 99 01/09/24 15:10 98 01/09/24 15:00 96 01/09/24 15:00 01/09/24 14:50 98 01/09/24 14:40 97 01/09/24 14:31 97 01/09/24 14:31 01/09/24 14:30 98 01/09/24 14:20 98 01/09/24 14:18 98 01/09/24 13:50 01/09/24 13:40 01/09/24 13:30 01/09/24 13:30 01/09/24 13:27 95 01/09/24 13:20 01/09/24 13:10 01/09/24 13:00 01/09/24 13:00 01/09/24 12:57 01/09/24 12:40 97 01/09/24 12:30 98 01/09/24 12:30 01/09/24 12:28 01/09/24 12:20 98 01/09/24 12:10 100 01/09/24 12:02 01/09/24 12:02 97 01/09/24 11:49 96 Room Air 01/09/24 11:31 99 Room Air PG Care Time/CCT Total # of Minutes Spent Total Time Spent with Patient: Total time spent is greater than 50% in coordination of care (as documented) at patient's floor/unit and/or counseling patient: Coding Level of Care Code 95845 IN/OBS CONSULT LVL 5,80M Diagnoses SBO (small bowel obstruction) K56.609
[2024-01-09 22:51] LABS: Hematocrit (blood only) 35.9 % (42.0-52.0); Hemoglobin 10.3 g/dl (14.0-18.0)
[2024-01-10 06:51] LABS: Basophils # (auto) 0.01 K/uL (0.00-0.20); Basophils % (auto) 0.3 %; Eosinophils # (auto) 0.03 K/uL (0.00-0.50); Eosinophils % (auto) 0.9 %; Hematocrit (blood only) 33.3 % (42.0-52.0); Hemoglobin 9.7 g/dl (14.0-18.0); Hypochromasia Present; Immature Granulocytes # (auto) 0.01 K/uL (0.01-0.20); Immature Granulocytes % (auto) 0.3 %; Lymphocytes # (auto) 0.45 K/uL (1.20-3.40); Lymphocytes % (auto) 13.4 %; Mean Corpuscular Hemoglobin 19.6 pg (25.0-34.0); Mean Corpuscular Hgb Conc 29.1 g/dL (32.0-36.0); Mean Corpuscular Volume 67.3 fL (80.0-100.0); Mean Platelet Volume 9.5 fL (9.4-12.4); Microcytosis Present; Monocytes # (auto) 0.45 K/uL (0.11-0.59); Monocytes % (auto) 13.4 %; Neutrophils % (auto) 71.7 %; Platelet Count 208 K/uL (130-400); RDW Coefficient of Variation 23.1 % (11.5-14.5); RDW Standard Deviation 53.2 fL (36.4-46.3); Red Blood Count 4.95 M/uL (4.70-6.10); Tear Drop Cells 1+; White Blood Count 3.35 K/ul (4.8-10.8)
[2024-01-10 06:54] LABS: BUN Creatinine Ratio 8.8 (10-20); Creatinine Clr Calc Pharmacy 76.7 ml/min; Est GFR (African American) 102.9 ml/min; Est GFR (Non-African American) 88.8 ml/min; Magnesium 1.9 mg/dl (1.7-2.4); Phosphorus 3.4 mg/dl (2.5-4.9)
[2024-01-10] MEDS: HYDROmorphone INJ 0.5 MG/0.5 ML SYR IV PRN (09:03)
--- NOTE | 2024-01-10 10:41 | Gastrointestinal Consultation ---
Date of Consultation January 10, 2024 Assessment & Plan (1) SBO (small bowel obstruction): (2) Abnormal abdominal CT scan: Plan Patient admitted for abdominal pain, nausea, vomiting. This is very similar to last month. CT done 01/08 shows nonspecific enteritis, possible SBO related to mucosal edema or stricture. there is irregularity of the cecum. Discussed case with Dr. Marshall. Will check KUB today to monitor obstruction. Would plan for eventual Colonoscopy while inpatient - will await results of KUB today. Will also check CEA. Further recommendations to follow. Supervising Physician Co-Signing Physician Notes Agree with ADELITA Beasley as above Abd: Soft, NT, slightly distended, -BS KUB: Worsening SBO Cannot do bowel prep in patient with worsening SBO Will await surgery input History of Present Illness Reason for Consultation: Recurrent SBO, cecal abnormality, FMHx of colon CA Requesting Physician: Flor Rose PA-C Attending Physician: Ottoniel Burton MD History of Present Illness Patient is a 63 year old male recently admitted from 12/15- 01/01 for small bowel obstruction/enteritis and with a past medical history of alcohol abuse approximately 6 beers daily and GERD who presented back to the ED yesterday with severe abdominal pain similar to his previous bowel obstruction requiring admission last month. CT done upon ED evaluation shown nonspecific enteritis of the distal/terminal ileum, question of partial small bowel obstruction possibly related to stricture/mucosal edema with irregularity of the cecum. He tells me he does have abdominal pain that comes and goes and it has been this way since admission last month. pain currently 8/10. He has had some ongoing nausea. He also has had some clear emesis. He has been NPO. He had two small bowel movements yesterday. He is not passing gas. Abdomen seems distended. Surgery is following. He has never had a colonoscopy and was supposed to get one as outpatient after his last admission but he has never felt well enough to have done. Father has had a history of colon cancer. Allergies Allergy/AdvReac Type Severity Reaction Status Date / Time tree and shrub pollen Allergy Mild runny Verified 12/16/23 13:55 nose, itchy eyes, sneezing Home Medications Medication Instructions Recorded Confirmed Type pantoprazole 40 mg tablet,delayed 40 mg PO DAILY #30 tabs 10/29/23 01/09/24 Rx release sucralfate 100 mg/mL oral 10 ml PO QID #420 mL 10/29/23 01/09/24 Rx suspension (Carafate) dicyclomine 10 mg capsule 10 mg PO TID PRN abdominal pain 12/15/23 01/09/24 Rx #20 caps diphenhydramine HCl 25 mg capsule 25 mg PO DIRECTED PRN ALLERGIES 12/15/23 01/09/24 History (Benadryl) ondansetron 4 mg disintegrating 4 - 8 mg (1 - 2 x 4 mg) PO Q8H PRN 12/15/23 01/09/24 Rx tablet nausea and vomiting #14 tabs Patient History Medical History Alcohol use disorder H/O gastroesophageal reflux (GERD) Social History Smoking Status: Never smoker Hx Alcohol Use: Yes Alcohol type: beer Hx Substance Use: No Preferred Language: Korean Communication Ability: Effective Preschool Associate Teacher Required: No Beliefs That Will Affect Care: None Current Living Situation: Alone Feels Safe at Home: Yes Safety Concerns: Feels Safe At This Time Assistive Devices: None Review of Systems Review of Systems: All systems reviewed & are unremarkable except as noted in HPI & below Physical Exam Constitutional: WD/WN, vitals as above Respiratory: normal respiratory effort, lungs clear to auscultation Cardiovascular: RRR, no murmur, no edema Gastrointestinal (Abdomen): hypoactive bowel sounds, abdomen distended. nontender. Skin: no rashes, warm and dry Psychiatric: Orientation: alert and oriented x 3 Affect: euthymic affect Results & Data Vital Signs (Past 12 Hours) Vital Signs Temp Pulse Resp BP Pulse Ox O2 Del Method 01/10/24 08:00 Room Air 01/10/24 07:43 97.9 F 95 H 16 152/79 H 97 Room Air Coding Level of Care Code 40397 IN/OBS CONSULT LVL 4,60M Diagnoses SBO (small bowel obstruction) K56.[address] scan R93.5
--- NOTE | 2024-01-10 12:42 | XRay Report ---
KUB HISTORY: Acute abdominal pain CT 01/09/2024 COMPARISON: CT 01/09/2024 FINDINGS: Persistent small bowel obstruction with progressive small bowel distention. Dilated loops m easure up to 5.8 cm, previously 3.87 L. No renal calculi. No ureteral calculi. No pneumoperitoneum o r pneumatosis. No fracture. IMPRESSION: Progressive worsening of the small bowel obstruction. ACT 112: Negative or not required by law. The above report was generated using voice recognition software. It may contain grammatical, syntax o r spelling errors. Electronically signed by: Emiliano David M.D. 01/10/2024 12:41 PM
--- NOTE | 2024-01-10 14:16 | Surgery Progress Note ---
Date of Service January 10, 2024 Assessment & Plan (1) SBO (small bowel obstruction): Plan: Patient here with concern for recurrent SBO Reports + ongoing intermittent abdominal pain. Says it hurts at rest, not necessarily when palpated upon KUB today with concern for worsening SBO. He also has + nausea Abdomen soft, mildly distended, and non tender Gi input appreciated as there is some ? of possible crohns given the involvement of TI/cecum region and ?stricturing in the area For now we will recommend placing an NGT due to ongoing pain, nausea, worsening KUB No plans for surgical intervention at this time Admission and Anticipated Discharge Date Admission Date: January 09, 2024 Supervising Physician Co-Signing Physician Notes This patient was seen and examined with the surgical PA. I agree with the assessment. Subjective Patient reports not feeing great. + abdominal pain and nausea. Physical Exam Physical Exam: awake/alert, no distress Gastrointestinal (Abdomen): Inspection/Auscultation: + abdomen distended (mildly) Percussion/Palpation: abdomen soft; abdomen nontender (minimal) Results & Data Vital Signs (Past 12 Hours) Vital Signs Temp Pulse Resp BP Pulse Ox O2 Del Method 01/10/24 08:00 Room Air 01/10/24 07:43 97.9 F 95 H 16 152/79 H 97 Room Air PG Care Time/CCT Total # of Minutes Spent Total Time Spent with Patient: Total time spent is greater than 50% in coordination of care (as documented) at patient's floor/unit and/or counseling patient: Coding Level of Care Code 62453 SUB INP/OBS CARE 11/04MIN Diagnoses SBO (small bowel obstruction) K56.609
--- NOTE | 2024-01-10 14:59 | XRay Report ---
XR chest 1V portable CLINICAL HISTORY: Confirm NGT placement TECHNIQUE: Single frontal radiograph of the chest was obtained. Comparison: Comparison is made to chest radiograph 12/16/2023 FINDINGS: Enteric tube tip and side-port lie below the diaphragm. The cardiomediastinal silhouette is normal. T he lungs are clear. No evidence of pleural effusion or pneumothorax. Old healed rib fractures are see n. IMPRESSION: Satisfactory position of enteric tube. ACT 112: Negative or not required by law. Electronically signed by: Vignesh Licona M.D. 01/10/2024 2:58 PM
--- NOTE | 2024-01-10 15:59 | Hospitalist Progress Note ---
Date of Service January 10, 2024 Assessment & Plan (1) SBO (small bowel obstruction): Plan: Recurrent partial small bowel obstruction, Cecal wall thickening, esophageal thickening noted at this admission - Symptoms were preceded by 812 bowel movements daily (stool PCR negative), which suddenly decreased and patient had to strain to get small amounts of stool out with absence of flatus for 2 days prior to admission - CT done upon ED evaluation showed nonspecific enteritis of the distal/terminal ileum, question of partial SBO possibly related to stricture/mucosal edema with irregularity of the cecum - Repeat KUB revealed progressive worsening of SBO -- On presentation NGT was not placed, however patient developed nausea and clear emesis, requiring NGT placement 01/10/24 - GI is agreeable to colonoscopy while inpatient -- Cannot do bowel prep for colonoscopy at this time due to worsening SBO - Continue NPO status, IVF, acetaminophen/Dilaudid for pain control, Zofran for nausea - Given family history of colon cancer and his father, recurrent SBO, chronic microcytic iron deficiency anemia, cecal abnormality, and mildly elevated CEA at 3.0, there is concern for malignancy. No prior colonoscopies per patient. - Continue to follow GI and surgery's recommendations (2) Anemia: Plan: - New onset hematochezia and chronic microcytic anemia, requiring 1 unit blood transfusion during hospitalization earlier this month - Iron deficiency anemia, with concern for malignancy as noted above - Currently, low iron, low transferrin % sat, normal TIBC, normal ferritin, normal B12, normal folate, normal reticulocyte count -- Consider supplemental iron upon progression of SBO - Folate/thiamine switched to IV (3) Alcohol use disorder: Plan: History of alcohol abuse, up to 24 beers daily and . Patient denies history of seizures. - AWSS protocol, thiamine, focal acid ordered - Patient reports he has been cutting back in anticipation of getting a colonoscopy. Recently has been drinking around 4-6 beers per day, last drink was 01/06/24. No signs of alcohol withdrawal. Plan DVT prophylaxis: Pharmacoprophylaxis held due to hematochezia and anemia. SCDs CODE STATUS: Full Admission and Anticipated Discharge Date Admission Date: January 09, 2024 Subjective Patient seen and evaluated at bedside. He reports intermittent abdominal pain, controlled with medication. He states he feels "rumbling in his stomach" but denies any flatulence or bowel movements. He reports earlier this morning he experienced waves of nausea with clear emesis, which was relieved with Zofran. He denies having a colonoscopy in the past. I discussed his case with GI, who is agreeable to proceeding with a colonoscopy while inpatient, however further workup today revealed worsening SBO. Therefore, colonoscopy prep cannot be completed at this time. Patient had an NG tube placed today. Physical Exam Physical Exam: General: No acute distress, nondiaphoretic, well-developed, well-nourished. Skin: The skin was without rashes, erythema, edema, or bruising. Cardiac: Regular rate and rhythm without murmurs gallops or rubs. Pulm: Clear to auscultation bilaterally without wheezes, rales or rhonchi. No retractions or accessory muscle use. Abdominal: Soft, nontender to palpation, slightly distended. Hypoactive bowel sounds. No guarding or rebound tenderness. Neuro: A&O x3. No focal neurological deficits. Results & Data Results & Data Vital Signs (Past 12 Hours) Vital Signs Temp Pulse Resp BP Pulse Ox O2 Del Method 01/10/24 15:04 36.7 C 80 16 165/79 H 97 Room Air 01/10/24 08:00 Room Air 01/10/24 07:43 36.6 C 95 H 16 152/79 H 97 Room Air Laboratory Results Reviewed CBC Reviewed chemistries, including CEA Diagnostic Findings KUB x-ray 01/10/24 FINDINGS: Persistent small bowel obstruction with progressive small bowel distention. Dilated loops measure up to 5.8 cm, previously 3.87 L. No renal calculi. No ureteral calculi. No pneumoperitoneum or pneumatosis. No fracture. IMPRESSION: Progressive worsening of the small bowel obstruction. Chest x-ray 01/10/2024 FINDINGS: Enteric tube tip and side-port lie below the diaphragm. The cardiomed iastinal silhouette is normal. The lungs are clear. No evidence of pleural effusion or pneumothorax. Old healed rib fractures are seen. IMPRESSION: Satisfactory position of enteric tube. PG Care Time/CCT Total # of Minutes Spent Total Time Spent with Patient: Total time spent is greater than 50% in coordination of care (as documented) at patient's floor/unit and/or counseling patient: Coding Level of Care Code 94658 SUB INP/OBS CARE 50MIN Diagnoses SBO (small bowel obstruction) K56.609 Anemia D64.9 Alcohol use disorder F10.90
[2024-01-10] MEDS ORDERED: CHLORASEPTIC (PHENOL) 1.4% SOLN 180 ML BTL MT PRN (16:43)
[2024-01-11 08:14] LABS: Hemoglobin 10.2 g/dl (14.0-18.0); Mean Corpuscular Hemoglobin 19.8 pg (25.0-34.0); Mean Corpuscular Volume 66.1 fL (80.0-100.0); Mean Platelet Volume 9.4 fL (9.4-12.4); Platelet Count 200 K/uL (130-400); RDW Coefficient of Variation 23.6 % (11.5-14.5); RDW Standard Deviation 53.2 fL (36.4-46.3); Red Blood Count 5.14 M/uL (4.70-6.10); White Blood Count 5.52 K/ul (4.8-10.8)
[2024-01-11 08:35] LABS: Calcium 7.9 mg/dl (8.6-10.3); Creatinine Clr Calc Pharmacy 77.5 ml/min; Est GFR (African American) 104.2 ml/min; Est GFR (Non-African American) 89.9 ml/min; Potassium 4.1 mmol/L (3.5-5.1)
--- NOTE | 2024-01-11 08:35 | Surgery Progress Note ---
<Statement entered by Merle Gonzalez DO - 01/12/24 13:04> This patient was seen and examined with the surgical PA. I agree with the plan. Date of Service January 11, 2024 Assessment & Plan (1) SBO (small bowel obstruction): Plan: Patient here with concern for recurrent SBO Feeling a little bit better with NGT in, but still with pain and lack of bowel function CEA 3, WBC 5, Hbg stable at 10 NGT with 150cc documented Pending patient's progress may consider a SBFT in the next couple days to eval SBO and for any concern of small bowel mass He never had a colonoscopy and he will likely need one once this SBO resolves for evaluation of history of bloody stools, elevated CEA level GI input is appreciated Our plans are to hopefully to allow patient to recover from this obstruction with conservative measures to allow him for full workup eventually with colonoscopy and if needed have the appropriate oncologic surgery should there be any concern for malignancy KUB today is pending. we are okay with clamping NGT for him to be able to ambulate the [place] Admission and Anticipated Discharge Date Admission Date: January 09, 2024 Subjective Patient feels a little bit better with the NGT in place. Abdominal pain remains present however, but improved. Not passing flatus. Reports never had colonoscopy in the past. Physical Exam Physical Exam: awake/alert, no distress Gastrointestinal (Abdomen): Inspection/Auscultation: + abdomen distended (mild) Percussion/Palpation: + abdomen tender (mild discomfort to palpation in epigastric and RLQ regions) and abdomen soft NGT with 150cc documented Results & Data Vital Signs (Past 12 Hours) Vital Signs Temp Pulse Resp BP Pulse Ox O2 Del Method 01/11/24 08:09 98.1 F 81 18 165/90 H 98 Room Air PG Care Time/CCT Total # of Minutes Spent Total Time Spent with Patient: Total time spent is greater than 50% in coordination of care (as documented) at patient's floor/unit and/or counseling patient: Coding Level of Care Code 01188 SUB INP/OBS CARE 1/25MIN Diagnoses SBO (small bowel obstruction) K56.609
[2024-01-11 09:07] LABS: Basophils # (auto) 0.01 K/uL (0.00-0.20); Basophils % (auto) 0.2 %; Eosinophils # (auto) 0.04 K/uL (0.00-0.50); Eosinophils % (auto) 0.7 %; Immature Granulocytes # (auto) 0.01 K/uL (0.01-0.20); Immature Granulocytes % (auto) 0.2 %; Lymphocytes # (auto) 0.71 K/uL (1.20-3.40); Lymphocytes % (auto) 12.9 %; Monocytes # (auto) 0.55 K/uL (0.11-0.59); RBC Morphology Unremarkable
--- NOTE | 2024-01-11 11:00 | XRay Report ---
KUB CLINICAL HISTORY: Small bowel obstruction. COMPARISON STUDY: CT of the abdomen and pelvis January 09, 2024. KUB January 10, 2024. FINDINGS: Tip of nasogastric tube is within the gastric fundus. Multiple loops of moderately dilated small bowel measure up to 5.3 cm. Appearance is similar to prior KUB. No evidence for free air on sup ine exam. IMPRESSION: Findings consistent with a persistent small bowel obstruction. ACT 112: Negative or not required by law. Electronically signed by: Pedro Flores M.D. 01/11/2024 10:59 AM
--- NOTE | 2024-01-11 11:11 | Gastroenterology Progress Note ---
Date of Service January 11, 2024 Assessment & Plan (1) Abnormal abdominal CT scan: (2) SBO (small bowel obstruction): Plan - continue with NG tube. - surgery following. - would plan for colonoscopy once SBO has resolved. as of 01/11/24 KUB, results are similar to yesterday. will plan for repeat KUB tomorrow. Admission and Anticipated Discharge Date Admission Date: January 09, 2024 Supervising Physician Co-Signing Physician Notes Agree with Zbigniew Ku PAC as above Gen: NG Tube in left nare Abd: Soft, NT, ND, +BS Continue current therapy and supportive care Consider colonoscopy when abdominal imaging improves Subjective Patient tells me that he feels better today. less abdominal distention. He tells me that this morning he has moved his bowels 4 times and has felt better since doing so. Less nausea. no emesis. He has NG in place. KUB 01/11/24 with persistent SBO similar to previous KUB. CEA 01/10/24 3.0 Review of Systems Review of Systems: All systems reviewed & are unremarkable except as noted in HPI & below Physical Exam Constitutional: WD/WN, vitals as above Respiratory: normal respiratory effort, lungs clear to auscultation Cardiovascular: RRR, no murmur, no edema Gastrointestinal (Abdomen): hypoactive bowel sounds, less distended. nontender. Psychiatric: Orientation: alert and oriented x 3 Affect: euthymic affect Results & Data Results & Data Vital Signs (Past 12 Hours) Vital Signs Temp Pulse Resp BP Pulse Ox O2 Del Method 01/11/24 08:09 98.1 F 81 18 165/90 H 98 Room Air Coding Level of Care Code 99162 SUB INP/OBS CARE 11/04MIN Diagnoses Abnormal abdominal CT scan R93.5 SBO (small bowel obstruction) K56.609
--- NOTE | 2024-01-11 16:16 | Hospitalist Progress Note ---
Date of Service January 11, 2024 Assessment & Plan (1) SBO (small bowel obstruction): Plan: Recurrent partial small bowel obstruction, Cecal wall thickening, esophageal thickening noted at this admission - Symptoms were preceded by 812 bowel movements daily (stool PCR negative), which suddenly decreased and patient had to strain to get small amounts of stool out with absence of flatus for 2 days prior to admission - CT done upon ED evaluation showed nonspecific enteritis of the distal/terminal ileum, question of partial SBO possibly related to stricture/mucosal edema with irregularity of the cecum - Repeat KUB revealed progressive worsening of SBO -- On presentation NGT was not placed, however patient developed nausea and clear emesis, requiring NGT placement 01/10/24 -- 4 bowel movements on 01/11/2024, however KUB is similar to yesterday - GI is agreeable to colonoscopy while inpatient when SBO resolves/abdominal imaging improves - Continue NG tube, NPO status, IVF, acetaminophen/Dilaudid for pain control, Zofran for nausea - Given family history of colon cancer and his father, recurrent SBO, chronic microcytic iron deficiency anemia, cecal abnormality, and elevated CEA at 3.0, there is concern for malignancy. No prior colonoscopies per patient. - Continue to follow GI and surgery's recommendations (2) Anemia: Plan: - New onset hematochezia and chronic microcytic anemia, requiring 1 unit blood transfusion during hospitalization earlier this month - Iron deficiency anemia, with concern for malignancy as noted above - Currently, low iron, low transferrin % sat, normal TIBC, normal ferritin, normal B12, normal folate, normal reticulocyte count -- Consider supplemental iron upon improvement of SBO - Folate/thiamine switched to IV (3) Alcohol use disorder: Plan: History of alcohol abuse, up to 24 beers daily and October/November. Patient denies history of seizures. - AWSS protocol, thiamine, focal acid ordered - Patient reports he has been cutting back in anticipation of getting a colonoscopy. Recently has been drinking around 4-6 beers per day, last drink was 01/06/24. No signs of alcohol withdrawal. Plan DVT prophylaxis: Pharmacoprophylaxis held due to hematochezia and anemia. SCDs CODE STATUS: Full code Admission and Anticipated Discharge Date Admission Date: January 09, 2024 Subjective Patient seen and evaluated at bedside with friend. He reports that he has had 4 bowel movements this morning. He denies nausea at this time, but reports he experienced significant nausea with dry heaving last night. He denies any abdominal pain at this time. He reports he can feel gas moving through his GI tract. KUB from today is similar to yesterday. GI/surgery continuing with NG tube at this time. Repeat KUB tomorrow to monitor progression of SBO. Hopefully patient can get colonoscopy while inpatient once abdominal imaging improves. Physical Exam Physical Exam: General: No acute distress, nondiaphoretic, well-developed, well-nourished. NG tube left nare. Skin: The skin was without rashes, erythema, edema, or bruising. Cardiac: Regular rate and rhythm without murmurs gallops or rubs. Pulm: Clear to auscultation bilaterally without wheezes, rales or rhonchi. No retractions or accessory muscle use. Abdominal: Soft, nontender to palpation, nondistended. Positive bowel sounds. No guarding or rebound tenderness. Neuro: A&O x3. No focal neurological deficits. Results & Data Results & Data Vital Signs (Past 12 Hours) Vital Signs Temp Pulse Resp BP Pulse Ox O2 Del Method 01/11/24 15:26 36.6 C 75 16 150/83 H 97 Room Air 01/11/24 08:09 36.7 C 81 18 165/90 H 98 Room Air Laboratory Results Reviewed CBC Reviewed chemistries Reviewed KUB Diagnostic Findings KUB X-RAY 01/11/2024 COMPARISON STUDY: CT of the abdomen and pelvis January 09, 2024. KUB January 10, 2024. FINDINGS: Tip of nasogastric tube is within the gastric fundus. Multiple loops of moderately dilated small bowel measure up to 5.3 cm. Appearance is similar to prior KUB. No evidence for free air on supine exam. IMPRESSION: Findings consistent with a persistent small bowel obstruction. PG Care Time/CCT Total # of Minutes Spent Total Time Spent with Patient: Total time spent is greater than 50% in coordination of care (as documented) at patient's floor/unit and/or counseling patient: Coding Level of Care Code 60722 SUB INP/OBS CARE 2/35MIN Diagnoses SBO (small bowel obstruction) K56.609 Anemia D64.9 Alcohol use disorder F10.90
[2024-01-12 07:04] LABS: Hematocrit (blood only) 34.2 % (42.0-52.0); Mean Corpuscular Hgb Conc 29.2 g/dL (32.0-36.0); Mean Corpuscular Volume 68.5 fL (80.0-100.0); Platelet Count 173 K/uL (130-400); RDW Coefficient of Variation 24.1 % (11.5-14.5); RDW Standard Deviation 56.9 fL (36.4-46.3); Red Blood Count 4.99 M/uL (4.70-6.10)
[2024-01-12 07:05] LABS: Anisocytosis Present; Basophils # (auto) 0.01 K/uL (0.00-0.20); Basophils % (auto) 0.2 %; Eosinophils # (auto) 0.15 K/uL (0.00-0.50); Eosinophils % (auto) 2.8 %; Hypochromasia Present; Immature Granulocytes # (auto) 0.02 K/uL (0.01-0.20); Immature Granulocytes % (auto) 0.4 %; Lymphocytes # (auto) 1.24 K/uL (1.20-3.40); Monocytes # (auto) 0.55 K/uL (0.11-0.59); Monocytes % (auto) 10.2 %; Neutrophils # (auto) 3.43 K/uL (1.40-6.50); Neutrophils % (auto) 63.4 %; Tear Drop Cells 1+
[2024-01-12 07:10] LABS: BUN Creatinine Ratio 9.5 (10-20); Calcium 7.9 mg/dl (8.6-10.3); Creatinine Clr Calc Pharmacy 83.1 ml/min; Est GFR (African American) 107.2 ml/min; Est GFR (Non-African American) 92.5 ml/min; Potassium 3.7 mmol/L (3.5-5.1)
--- NOTE | 2024-01-12 07:53 | Surgery Progress Note ---
<Statement entered by Merle Gonzalez DO - 01/12/24 13:15> I seen and examined this patient this a.m. Patient continues to note improvement and is now passing stool in addition to flatus per rectum. I have also discussed this case with the stone polisher machine, Dr. Marshall who will likely take this patient for colonoscopy, after completion of the small bowel follow- through, pending results. Date of Service January 12, 2024 Assessment & Plan (1) SBO (small bowel obstruction): Plan: Pt having liquid BMs + flatus NG tube clamped at this time for pt to go to BR , o/p so far 450ml VSS rates abd pain 10 KUB ordered for this AM per GI Colonoscopy will be done after resolution of SBO Keep npo with NG tube at this time Will continue to monitor Admission and Anticipated Discharge Date Admission Date: January 09, 2024 Subjective pt feeling better than yesterday abd pain 2 Having liquid Bms denies n/v, fever, cp, sob discomfort from NG tube Review of Systems Constitutional: no fever and no chills Respiratory: no dyspnea Cardiovascular: no chest pain Gastrointestinal: + abdominal pain (10/20); no nausea and n o vomiting Musculoskeletal: no muscle weakness Integumentary: no rash Physical Exam Physical Exam: alert oriented Constitutional: cooperative and comfortable; no acute distress Respiratory: normal respiratory effort and able to speak in complete sentences; no respiratory distress Cardiovascular: Rate/Rhythm: regular rate Gastrointestinal (Abdomen): Inspection/Auscultation: + abdomen distended (mild) Percussion/Palpation: abdomen soft; abdomen nontender and no guarding Musculoskeletal: no cyanosis or clubbing, extremities motor strength 5/5 Results & Data Vital Signs (Past 12 Hours) Vital Signs Temp Pulse Resp BP Pulse Ox O2 Del Method 01/12/24 07:42 97.9 F 64 16 165/84 H 98 Room Air 01/11/24 21:00 98.1 F 67 18 179/91 H 97 Room Air Results CMP Results: Na 136 mmol/L (136-145) 01/12/24 K 3.7 mmol/L (3.5-5.1) 01/12/24 Cl 104 mmol/L (98-107) 01/12/24 CO2 27 mmol/L (21-32) 01/12/24 Anion Gap 5 (3-11) 01/12/24 BUN 8 mg/dl (6-23) 01/12/24 Creatinine 0.84 mg/dl (0.6-1.4) 01/12/24 Estimated GFR ( Amer) 107.2 ml/min 01/12/24 Estimated GFR (Non-Af Amer) 92.5 ml/min 01/12/24 BUN/Creatinine Ratio 9.5 (10-20) L 01/12/24 Glu 74 mg/dl (70-99(Fasting)) 01/12/24 Ca 7.9 mg/dl (8.6-10.3) L 01/12/24 Phosphorus Level 3.4 mg/dl (2.5-4.9) 01/10/24 Total Bilirubin 0.7 mg/dl (0.2-1.0) 01/09/24 Direct Bilirubin 0.1 mg/dl (0-0.2) 01/09/24 AST 22 U/L (13-39) 01/09/24 ALT 13 U/L (7-52) 01/09/24 Alkaline Phosphatase 122 U/L (34-104) H 01/09/24 TP 7.7 gm/dl (6.0-8.3) 01/09/24 Albumin 3.2 gm/dl (3.4-5.0) L 01/09/24 Globulin 3.1 gm/dl (2.5-4.0) 12/18/23 Albumin/Globulin Ratio 0.8 (0.9-2) L 12/18/23 Results Complete Blood Count Results: RBC 4.99 M/uL (4.70-6.10) 01/12/24 WBC 5.40 K/ul (4.8-10.8) 01/12/24 Hgb 10.0 g/dl (14.0-18.0) L 01/12/24 Hct 34.2 % (42.0-52.0) L 01/12/24 Plt Count 173 K/uL (130-400) 01/12/24 PG Care Time/CCT Total # of Minutes Spent Total Time Spent with Patient: Total time spent is greater than 50% in coordination of care (as documented) at patient's floor/unit and/or counseling patient: Coding Level of Care Code 04199 SUB INP/OBS CARE 11/04MIN Diagnoses SBO (small bowel obstruction) K56.468
--- NOTE | 2024-01-12 09:00 | XRay Report ---
KUB HISTORY: Acute has abdominal pain with reported small bowel obstruction SBO COMPARISON: 01/11/2024 FINDINGS: Persistent small bowel obstruction with dilated air-filled loops of small bowel measuring u p to 4.9 cm, previously 5.3 cm. An enteric tube is coiled over the midline upper abdomen. No renal c alculi. No ureteral calculi. No pneumoperitoneum or pneumatosis. No fracture. IMPRESSION: 1. Persistent Small bowel obstruction. 2. Distal tip of the enteric tube projects over the midline upper abdomen. This could be advanced sev eral centimeters with follow-up radiograph to confirm proper positioning. ACT 112: Negative or not required by law. The above report was generated using voice recognition software. It may contain grammatical, syntax o r spelling errors. Electronically signed by: Emiliano David M.D. 01/12/2024 8:59 AM
--- NOTE | 2024-01-12 09:42 | Gastroenterology Progress Note ---
Date of Service January 12, 2024 Assessment & Plan (1) Abnormal abdominal CT scan: (2) SBO (small bowel obstruction): Plan Patient has been moving bowels and having liquid stools. hypoactive bowel sounds on exam. Case was discussed with Dr. Marshall who advised on plan. The patient will either require a colonoscopy or surgery to further evaluate. He is agreeable to trial of a prep today with plan to do a colonoscopy tomorrow if he is able to tolerate prep. If he is unable to tolerate prep, would at that point recommend surgery. Patient was agreeable with plan. Okay from a GI standpoint to remove NG. Admission and Anticipated Discharge Date Admission Date: January 09, 2024 Supervising Physician Co-Signing Physician Notes Agree with Zbigniew Ku, PAC as above Abd: Soft, NT, ND Plan for bowel prep tonight with colonoscopy in AM Discussed case with Dr. Ashvin Cardenas and Flor Rose, PAC Subjective Patient tells me that he had several liquid bowel movements overnight and into this morning. no blood or melena. he denies any abdominal discomfort. He feels this has been better. He is irritated by his NG tube and wants this removed. rest of GI ros unrermarkable. KUB 01/12/24 still with persistent SBO. Review of Systems 2 Review of Systems: All systems reviewed & are unremarkable except as noted in HPI & below Physical Exam Constitutional: WD/WN, vitals as above Respiratory: normal respiratory effort, lungs clear to auscultation Cardiovascular: RRR, no murmur, no edema Gastrointestinal (Abdomen): hypoactive bowel sounds. nontender. soft. Psychiatric: Orientation: alert and oriented x 3 Affect: euthymic affect Results & Data Results & Data Vital Signs (Past 12 Hours) Vital Signs Temp Pulse Resp BP Pulse Ox O2 Del Method 01/12/24 07:42 97.9 F 64 16 165/84 H 98 Room Air PG Care Time/CCT Total # of Minutes Spent Total Time Spent with Patient: Total time spent is greater than 50% in coordination of care (as documented) at patient's floor/unit and/or counseling patient: Coding Level of Care Code 60753 SUB INP/OBS CARE 2/35MIN Diagnoses Abnormal abdominal CT scan R93.5 SBO (small bowel obstruction) K56.609
--- NOTE | 2024-01-12 13:26 | XRay Report ---
KUB HISTORY: Small bowel obstruction. Status post enteric tube repositioning. ADVANCED NG TUBE - CONFIRM PLACEMENT BEFORE SMALL BOWEL COMPARISON: KUB of same day at 8:39 AM FINDINGS: Reposition enteric tube is noted coiled over the central upper abdomen. Persistent small vinod wel obstruction with unchanged distention. The lower abdomen and pelvis are excluded from the field o f view. No renal calculi. No ureteral calculi. No pneumoperitoneum or pneumatosis. Chronic appearing rib fractures. No fracture. IMPRESSION: 1. Repositioned enteric tube, now with the distal tip in the expected location of the gastric body. 2. Persistent small bowel obstruction. ACT 112: Negative or not required by law. The above report was generated using voice recognition software. It may contain grammatical, syntax o r spelling errors. Electronically signed by: Emiliano David M.D. 01/12/2024 1:25 PM
--- NOTE | 2024-01-12 15:49 | Hospitalist Progress Note ---
Date of Service January 12, 2024 Assessment & Plan (1) SBO (small bowel obstruction): Plan: Recurrent partial small bowel obstruction, Cecal wall thickening, esophageal thickening noted at this admission - Symptoms were preceded by 812 bowel movements daily (stool PCR negative), which suddenly decreased and patient had to strain to get small amounts of stool out with absence of flatus for 2 days prior to admission - CT done upon ED evaluation showed nonspecific enteritis of the distal/terminal ileum, question of partial SBO possibly related to stricture/mucosal edema with irregularity of the cecum - On presentation NGT was not placed, however patient developed nausea and clear emesis, requiring NGT placement 01/10/24. NG tube removed 01/12/24. - Serial KUB x-rays have revealed persistent SBO - Patient has had liquid bowel movements and passing flatulence - Had small bowel follow through on 01/12/24 - Plan for oral bowel prep tonight with colonoscopy tomorrow morning, 01/13/24. - Continue NPO status, IVF, acetaminophen/Dilaudid for pain control, Zofran for nausea - Given family history of colon cancer and his father, recurrent SBO, chronic microcytic iron deficiency anemia, cecal abnormality, and elevated CEA at 3.0, there is concern for malignancy. No prior colonoscopies per patient. - Continue to follow GI and surgery's recommendations (2) Anemia: Plan: - New onset hematochezia and chronic microcytic anemia, requiring 1 unit blood transfusion during hospitalization in early December - Iron deficiency anemia, with concern for malignancy as noted above - Currently, low iron, low transferrin % sat, normal TIBC, normal ferritin, normal B12, normal folate, normal reticulocyte count -- Consider supplemental iron upon improvement of SBO - Folate/thiamine switched to IV (3) Alcohol use disorder: Plan: History of alcohol abuse, up to 24 beers daily and October/November. Patient denies history of seizures. - AWSS protocol, thiamine, focal acid ordered - Patient reports he has been cutting back in anticipation of getting a colonoscopy. Recently has been drinking around 4-6 beers per day, last drink was 01/06/24. No signs of alcohol withdrawal. Plan DVT prophylaxis: Pharmacoprophylaxis held due to hematochezia and anemia. SCDs CODE STATUS: Full code Admission and Anticipated Discharge Date Admission Date: January 09, 2024 Subjective Patient seen and evaluated at bedside. He reports several liquid bowel movements last night and this morning. Denies any blood in his stool or melena. He denies any abdominal pain. He reports that he is very irritated by his NG tube and would like this removed as soon as possible. We discussed the option of doing his bowel prep for his colonoscopy tomorrow via the NG tube, and that it could be removed once asleep for the colonoscopy. He states he would rather have the NG tube removed today and drink the bowel prep. He has no concerns about finishing the bowel prep orally. NG tube removed in the afternoon. GI is planning on performing the colonoscopy tomorrow morning, then hopefully surgery can move forward if needed for further management. Physical Exam Physical Exam: General: No acute distress, nondiaphoretic, well-developed, well-nourished. Skin: The skin was without rashes, erythema, edema, or bruising. Cardiac: Regular rate and rhythm without murmurs gallops or rubs. Pulm: Clear to auscultation bilaterally without wheezes, rales or rhonchi. No retractions or accessory muscle use. Abdominal: Soft, nontender to palpation, nondistended. Positive bowel sounds. No guarding or rebound tenderness. Neuro: A&O x3. No focal neurological deficits. Results & Data Results & Data Vital Signs (Past 12 Hours) Vital Signs Temp Pulse Resp BP Pulse Ox O2 Del Method 01/12/24 15:06 36.4 C L 86 16 167/92 H 99 Room Air 01/12/24 07:42 36.6 C 64 16 165/84 H 98 Room Air Laboratory Results Reviewed CBC Reviewed CMP Reviewed KUB Reviewed small bowel follow through Diagnostic Findings KUB X-RAY 01/12/24 05:11 FINDINGS: Persistent small bowel obstruction with dilated air-filled loops of small bowel measuring up to 4.9 cm, previously 5.3 cm. An enteric tube is coiled over the midline upper abdomen. No renal calculi. No ureteral calculi. No pneumoperitoneum or pneumatosis. No fracture. IMPRESSION: 1. Persistent Small bowel obstruction. 2. Distal tip of the enteric tube projects over the midline upper abdomen. This could be advanced several centimeters with follow-up radiograph to confirm proper positioning. KUB X-RAY 01/12/24 12:58 FINDINGS: Reposition enteric tube is noted coiled over the central upper abdomen. Persistent small bowel obstruction with unchanged distention. The lower abdomen and pelvis are excluded from the field of view. No renal calculi. No ureteral calculi. No pneumoperitoneum or pneumatosis. Chronic appearing rib fractures. No fracture. IMPRESSION: 1. Repositioned enteric tube, now with the distal tip in the expected location of the gastric body. 2. Persistent small bowel obstruction. SMALL BOWEL X-RAY 01/12/24: Results pending. PG Care Time/CCT Total # of Minutes Spent Total Time Spent with Patient: Total time spent is greater than 50% in coordination of care (as documented) at patient's floor/unit and/or counseling patient: Coding Level of Care Code 34965 SUB INP/OBS CARE MIN Diagnoses SBO (small bowel obstruction) K56.609 Anemia D64.9 Alcohol use disorder F10.90
--- NOTE | 2024-01-12 15:50 | Fluoroscopy Report ---
FL small bowel follow through CLINICAL HISTORY: 63 years-old Male with eval SBO, contrast via NGT please. Small bowel obstruction TECHNIQUE: Oral barium was administered to the patient and serial radiographs of the abdomen were pe rformed. COMPARISON STUDY: KUB of same day FLUOROSCOPY TIME: 0 minutes. FINDINGS: Enteric contrast was administered. The patient's enteric tube which terminates in the stoma ch. Mild distention of the stomach. Numerous air and contrast filled distended loops of small bowel m easure up to 4.4 cm. No pneumoperitoneum. Transit to the large bowel occurred at approximately 45 min utes. The terminal ileum is not well visualized. IMPRESSION: Findings compatible with partial small bowel obstruction. ACT 112: Negative or not required by law. The above report was generated using voice recognition software. It may contain grammatical, syntax o r spelling errors. Electronically signed by: Emiliano David M.D. 01/12/2024 3:49 PM
[2024-01-12] MEDS: LAVAGE SOLUTION 4000ML PO ONE (16:23)
--- NOTE | 2024-01-13 08:08 | Anesthesiology Consultation ---
Date of Service January 13, 2024 Assessment & Plan (1) Encounter for pre-operative examination: Chart Review Chart Review: Acceptable Risk for Surgery, Patient NOT seen in Pre Admission Testing and journal entry audit clerk initiated Consults Requested none Proposed Anesthesia Anesthesia Type: MAC History Surgery Operation Date: 01/13/24 16:30 Proposed Procedures p Colonoscopy Dr. Rolando Rudd Case, DO Height/Weight Height: 5 ft 7 in Weight: 76.8 kg Allergies Allergy/AdvReac Type Severity Reaction Status Date / Time tree and shrub pollen Allergy Mild runny Verified 01/13/24 11:21 nose, itchy eyes, sneezing Medications Home Medications Medication Instructions Recorded Confirmed Last Taken pantoprazole 40 mg tablet,delayed 40 mg PO DAILY #30 tabs 10/29/23 01/09/24 12/15/23 release sucralfate 100 mg/mL oral 10 ml PO QID #420 mL 10/29/23 01/09/24 12/14/23 suspension (Carafate) dicyclomine 10 mg capsule 10 mg PO TID PRN abdominal pain 12/15/23 01/09/24 Unknown #20 caps diphenhydramine HCl 25 mg capsule 25 mg PO DIRECTED PRN ALLERGIES 12/15/23 01/09/24 Unknown (Benadryl) ondansetron 4 mg disintegrating 4 - 8 mg (1 - 2 x 4 mg) PO Q8H PRN 12/15/23 01/09/24 Unknown tablet nausea and vomiting #14 tabs Active Medications Generic Name Dose Route Start Last Admin Trade Name Freq PRN Reason Stop Dose Admin Heparin Sodium (Porcine) 5,000 units 01/13/24 09:00 01/13/24 10:19 Heparin Sod 5,000 Unit/0.5 Ml Vial SQ 02/12/24 08:59 Not Given Q12 FE Hydromorphone HCl 0.5 mg 01/09/24 16:58 01/10/24 10:46 Hydromorphone Inj 0.5 Mg/0.5 Ml Syr IV 01/23/24 16:57 0.5 mg Q4H PRN Administration Moderate Pain (4,5,6) on NRS Hydromorphone HCl 1 mg 01/09/24 16:58 01/11/24 23:00 Hydromorphone Inj 1 Mg/Ml Syringe IV 01/23/24 16:57 1 mg Q4H PRN Administration Severe Pain (7,8,9,10) on NRS Lactated Ringer's 1,000 mls @ 100 mls/hr 01/09/24 14:30 01/13/24 08:36 Lr IV 02/08/24 14:29 100 mls/hr .Q10H FE Infusion Thiamine HCl 100 mg/ Syringe 10 mls @ 2 mls/min 01/09/24 17:00 01/13/24 08:01 IV 02/08/24 16:59 2 mls/min QAM FE Administration Folic Acid 1 mg/ Syringe 10 mls @ 5 mls/min 01/09/24 17:00 01/13/24 08:01 IV 02/08/24 16:59 5 mls/min QAM FE Administration Pantoprazole Sodium 40 mg/ 10 mls @ 5 mls/min 01/13/24 11:00 01/13/24 11:01 Syringe IV 02/12/24 10:59 5 mls/min DAILY@1100 FE Administration Ondansetron HCl 4 mg 01/09/24 14:35 01/10/24 20:43 Ondansetron Inj 2 Mg/Ml 2 Ml Vial IV 02/08/24 14:34 4 mg Q4H PRN Administration Nausea Past Medical History Medical History (Updated 01/13/24 @ 08:10 by Milind Roberts MD) Encounter for pre-operative examination Alcohol use disorder H/O gastroesophageal reflux (GERD) Social History Smoking Status: Never smoker Hx Alcohol Use: Yes Alcohol type: beer alcohol intake frequency: 3 or more drinks per day Alcohol Intake Frequency Comment: 4-6 beers per day Hx Substance Use: No Physical Exam Vital Signs Last Vital Signs Temp 36.8 C 01/13/24 11:21 Pulse 71 01/13/24 11:21 Resp 16 01/13/24 11:21 BP 150/90 H 01/13/24 11:21 Pulse Ox 98 01/13/24 11:21 O2 Del Method Room Air 01/13/24 11:21 Testing Laboratory Results 01/13/24 08:13 01/12/24 06:10 PT 11.5 Seconds (9.0-12.0) 01/09/24 11:43 INR 1.1 (0.9-1.1) 01/09/24 11:43 APTT 31 Seconds (21-31) 01/09/24 11:43 Urine Color Yellow 01/09/24 13:43 Urine Appearance Clear (Clear) 01/09/24 13:43 Urine pH 6.5 (4.5-7.5) 01/09/24 13:43 Ur Specific [place] 1.031 (1.000-1.030) H 01/09/24 13:43 Urine Protein Trace (Negative) H 01/09/24 13:43 Urine Glucose (UA) Negative (Negative) 01/09/24 13:43 Urine Ketones Negative (Negative) 01/09/24 13:43 Urine Nitrite Negative (Negative) 01/09/24 13:43 Ur Leukocyte Esterase 1+ (Negative) H 01/09/24 13:43 Urine WBC (Auto) 10-30 /hpf (0-5) H 01/09/24 13:43 Urine RBC (Auto) 0-4 /hpf (0-4) 01/09/24 13:43 U Hyaline Cast (Auto) 5-10 /lpf (0-5) H 01/09/24 13:43 U Epithel Cells (Auto) 20-30 /lpf (0-5) H 01/09/24 13:43 Urine Bacteria (Auto) Negative (Negative) 01/09/24 13:43 01/09/24 13:43 Urine Culture - Final Urine,Clean Catch More than three types of organisms present, all high counts mixed probable skin karely - No further identifications or sensitivities to follow. Electrocardiogram Date: 12/16/23 Test Reason : Blood Pressure : / mmHG Vent. Rate : 065 BPM Atrial Rate : 065 BPM P-R Int : 174 ms QRS Dur : 084 ms QT Int : 436 ms P-R-T Axes : 039 -06 002 degrees QTc Int : 453 ms Normal sinus rhythm Normal ECG When compared with ECG of 15-DEC-2023 00:25, Vent. rate has decreased BY 35 BPM PRWP no longer present Confirmed by Kenny Harris ([id number]) on 12/16/2023 5:22:22 PM Chest X-Ray Date: 01/10/24 XR chest 1V portable CLINICAL HISTORY: Confirm NGT placement TECHNIQUE: Single frontal radiograph of the chest was obtained. Comparison: Comparison is made to chest radiograph 12/16/2023 FINDINGS: Enteric tube tip and side-port lie below the diaphragm. The cardiomediastinal silhouette is normal. The lungs are clear. No evidence of pleural effusion or pneumothorax. Old healed rib fractures are seen. IMPRESSION: Satisfactory position of enteric tube.
--- NOTE | 2024-01-13 08:17 | Surgery Progress Note ---
Date of Service January 13, 2024 Assessment & Plan (1) SBO (small bowel obstruction): Plan: Pt schedule for colonoscopy today has abdominal cramping no acute pain Abd soft non distended having Bms will wait results of scope Keep NPO for procedure Admission and Anticipated Discharge Date Admission Date: January 09, 2024 Subjective No new complaints Review of Systems Constitutional: no fever and no chills Respiratory: no dyspnea Cardiovascular: no chest pain Gastrointestinal: + abdominal pain (cramping); no nausea a nd no vomiting Genitourinary: no dysuria Musculoskeletal: no muscle weakness Integumentary: no rash Physical Exam Physical Exam: alert oriented Constitutional: cooperative and comfortable; no acute distress Respiratory: normal respiratory effort and able to speak in complete sentences; no respiratory distress Cardiovascular: Rate/Rhythm: regular rate Gastrointestinal (Abdomen): Inspection/Auscultation: abdomen not distended Percussion/Palpation: abdomen soft; abdomen nontender and no guarding Musculoskeletal: no cyanosis or clubbing, extremities motor strength 5/5 Results & Data Vital Signs (Past 12 Hours) Vital Signs Temp Pulse Resp BP Pulse Ox O2 Del Method 01/13/24 07:27 97.9 F 103 H 18 158/83 H 95 Room Air 01/12/24 23:06 97.9 F 76 18 169/79 H 100 Room Air PG Care Time/CCT Total # of Minutes Spent Total Time Spent with Patient: Total time spent is greater than 50% in coordination of care (as documented) at patient's floor/unit and/or counseling patient: Coding Level of Care Code 81702 SUB INP/OBS CARE /25MIN Diagnoses SBO (small bowel obstruction) K56.609
[2024-01-13 08:40] LABS: Hemoglobin 10.5 g/dl (14.0-18.0); Mean Corpuscular Hemoglobin 20.3 pg (25.0-34.0); Mean Corpuscular Volume 67.6 fL (80.0-100.0); Platelet Count 170 K/uL (130-400); RDW Coefficient of Variation 24.5 % (11.5-14.5); RDW Standard Deviation 56.8 fL (36.4-46.3); Red Blood Count 5.18 M/uL (4.70-6.10); White Blood Count 7.25 K/ul (4.8-10.8)
--- NOTE | 2024-01-13 09:20 | History & Physical Bridge Note ---
Date of Service January 13, 2024 History & Physical Bridge Note I have examined the patient, reviewed the History & Physical and in the interval since the performance of the History & Physical I have noted the following changes of clinical significance: no changes noted. Patient finished prep last evening. He tells me he has had several loose stools since that time. he tells me stools are clear. no bleeding or melena. he denies any abdominal pain. no shortness of breath or chest pain. - will plan for colonoscopy for today. Supervising Physician Co-Signing Physician Notes Agree with ADELITA Beasley as above Abd: Soft, tender RLQ, ND, +BS Continue current therapy and supportive care Proceed with colonoscopy today
[2024-01-13] MEDS: HEPARIN SOD 5,000 UNIT/0.5 ML VIAL SQ SCH (10:19)
--- NOTE | 2024-01-13 10:30 | XRay Report ---
[facility] CLINICAL HISTORY: Small bowel obstruction. COMPARISON STUDY: CT of the abdomen and pelvis January 09, 2024 and KUB January 12, 2024. FINDINGS: The nasogastric tube has been removed. Small bowel dilatation has improved. Small bowel loo ps measure up to 3.6 cm in caliber. No evidence for free air on supine exam. IMPRESSION: Mild small bowel dilatation, decreased since prior exam. The findings favor an improving small bowel obstruction. ACT 112: Negative or not required by law. Electronically signed by: Pedro Flores M.D. 01/13/2024 10:29 AM
[2024-01-13] MEDS: PANTOprazole 40 MG in SYRINGE 0 ML IV SCH (11:01)
--- NOTE | 2024-01-13 12:29 | GI REPORT ---
Patient Name: Hossein Herrera Procedure Date: 01/13/2024 11:55 AM Date of : 1960 Admit Type: Inpatient Age: 63 Gender: Male Attending MD: Leo Marshall DO, Procedure: Colonoscopy Providers: Leo Marshall DO Referring MD: Referred Self Indications: Abnormal CT of the GI tract Medicines: Monitored Anesthesia Care Complications: No immediate complications. Estimated Blood Loss: Estimated blood loss: none. Procedure: Pre-Anesthesia Assessment: - Prior to the procedure, a History and Physical was performed, and patient medications and allergies were reviewed. The patient's tolerance of previous anesthesia was also reviewed. The risks and benefits of the procedure and the sedation options and risks were discussed with the patient. All questions were answered, and informed consent was obtained. Prior Anticoagulants: The patient has taken no anticoagulant or antiplatelet agents. ASA Grade Assessment: III - A patient with severe systemic disease. After reviewing the risks and benefits, the patient was deemed in satisfactory condition to undergo the procedure. After I obtained informed consent, the scope was passed under direct vision. Throughout the procedure, the patient's blood pressure, pulse, and oxygen saturations were monitored continuously. The Colonoscope was introduced through the anus and advanced to the terminal ileum. The colonoscopy was performed without difficulty. The patient tolerated the procedure well. The quality of the bowel preparation was good. The appendiceal orifice and the rectum were photographed. Findings: The perianal and digital rectal examinations were normal. An infiltrative partially obstructing large mass was found in the cecum. The mass was non-circumferential. Oozing was present. Biopsies were taken with a cold forceps for histology. Three pedunculated and sessile polyps were found in the rectum, descending colon and transverse colon. The polyps were 4 to 15 mm in size. These polyps were removed with a hot snare. Resection and retrieval were complete. A polypoid non-obstructing medium-sized mass was found in the descending colon and in the distal descending colon. The mass was non-circumferential. The mass measured ten cm in length. In addition, its diameter measured twenty mm. No bleeding was present. Biopsies were taken with a cold forceps for histology. Area was tattooed with an injection of 5 mL of Esperanza ink. Multiple small-mouthed diverticula were found in the sigmoid colon. Non-bleeding internal hemorrhoids were found during retroflexion. The hemorrhoids were small. 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 Biopsied. - Three 4 to 15 mm polyps in the rectum, in the descending colon and in the transverse colon, removed with a hot snare. Resected and retrieved. - Likely malignant tumor in the descending colon and in the distal descending colon. Biopsied. Tattooed. - Diverticulosis in the sigmoid colon. - Non-bleeding internal hemorrhoids. Recommendation: - [facility]. - Clear liquid diet. - Continue present medications. Leo Marshall, DO 01/13/2024 12:29:03 PM This report has been signed electronically. Note Initiated On: 01/13/2024 11:55 AM Number of Addenda: 0 I attest to the content of the Intraoperative Record and orders documented therein, exceptions below {[id number]}
--- NOTE | 2024-01-13 14:15 | Anesthesiology Progress Note ---
Date of Service January 13, 2024 Anesthesia Post Procedure Vital Signs Vital Signs: Temp Pulse Resp BP Pulse Ox O2 Del Method 01/13/24 13:34 36.5 C 59 L 18 177/95 H 98 Room Air 01/13/24 12:56 69 20 163/66 H 100 Room Air 01/13/24 12:41 69 18 158/81 H 100 Room Air 01/13/24 12:26 82 16 142/86 H 99 Room Air 01/13/24 11:21 36.8 C 71 16 150/90 H 98 Room Air 01/13/24 07:27 36.6 C 103 H 18 158/83 H 95 Room Air 01/12/24 23:06 36.6 C 76 18 169/79 H 100 Room Air 01/12/24 15:06 36.4 C L 86 16 167/92 H 99 Room Air Pain Intensity Abdomen: Pain Intensity: 0 Transfer of Care Handoff Completed per policy Notes Mental Status: alert / awake / arousable and participated in evaluation Patient Amnestic to Procedure: Yes Nausea / Vomiting: adequately controlled Pain: adequately controlled Airway Patency, RR, SpO2: stable & adequate BP & HR: stable & adequate Hydration State: stable & adequate Anesthetic Complications: no major complications apparent
--- NOTE | 2024-01-13 14:22 | Hospitalist Progress Note ---
Date of Service January 13, 2024 Assessment & Plan (1) SBO (small bowel obstruction): Plan: Recurrent. Appreciate GI consultation and surgery consultation. Colonoscopy today reveals a partially obstructing cecal mass that is probably malignant. He also has a descending colon mass which was biopsied. Pathology report is pending. General surgery prefers to wait for pathology reports to be available before scheduling any surgical intervention. He currently is on clear liquid diet which will continue after discharge until surgery has been performed. (2) Anemia: Plan: Iron deficiency noted. Venofer has been started, day 1. Serial labs. (3) Alcohol use disorder: Plan: Alcohol cessation recommended. Currently stable. Patient denies history of seizures. Recently has been drinking around 4-6 beers per day, last drink was 01/06/24. No signs of alcohol withdrawal. Plan Probable discharge to home tomorrow, January 13, on clear liquid diet with outpatient follow-up in the near future with general surgery to review pathology findings and to schedule surgical intervention. Admission and Anticipated Discharge Date Admission Date: January 09, 2024 Subjective Alert and oriented. No distress. He is seen post colonoscopy today. He was found to have a large partially obstructing cecal mass which probably is malignant. He also has a descending colon mass that was biopsied. Pathology is pending. Surgery prefers to wait until pathology reports are available before they will schedule surgical intervention. Clear liquids for now. Venofer started for his iron deficiency. Hopefully home tomorrow, January 13, on a clear liquid diet and then outpatient follow-up with general surgery next week for scheduling of surgical intervention and review of pathology. Review of Systems 2 Review of Systems: Constitutional-no fever or chills ENT-no blurred vision, no double vision, no epistaxis, no sore throat Respiratory-no cough, no wheezing, no shortness of breath Cardiac-no palpitations, no chest pain, no syncope GI-no nausea, vomiting, diarrhea, melena, hematochezia -no urinary retention, no urinary incontinence, no dysuria, no hematuria Musculoskeletal-no joint pain, no muscle tenderness Skin-no bruising, no rashes, no pruritus Neuro-no isolated weakness, no paresthesia, no weakness Psych-no depression, no anxiety Physical Exam 2 Physical Exam: General-alert and oriented x3, no fever, no chills HEENT-head atraumatic and normocephalic, pupils equal and reactive to light, extraocular muscles intact Neck-no lymphadenopathy or thyromegaly, trachea midline Chest-clear to auscultation. No rales, wheezing or rhonchi Cardiac-regular rate and rhythm, normal S1 and S2 Abdomen-normal bowel sounds, nontender, no hepatosplenomegaly Extremities-no cyanosis, clubbing, or edema Neuro-cranial nerves II through XII intact, motor and sensory function within normal limits, strength symmetrical, no focal deficits Psych-normal affect, normal mood Results & Data Results & Data Vital Signs (Past 12 Hours) Vital Signs Temp Pulse Resp BP Pulse Ox O2 Del Method 01/13/24 13:34 36.5 C 59 L 18 177/95 H 98 Room Air 01/13/24 12:56 69 20 163/66 H 100 Room Air 01/13/24 12:41 69 18 158/81 H 100 Room Air 01/13/24 12:26 82 16 142/86 H 99 Room Air 01/13/24 11:21 36.8 C 71 16 150/90 H 98 Room Air 01/13/24 07:27 36.6 C 103 H 18 158/83 H 95 Room Air Laboratory Results 01/13/24 08:13 01/12/24 06:10 PG Care Time/CCT Total # of Minutes Spent Total Time Spent with Patient: Total time spent is greater than 50% in coordination of care (as documented) at patient's floor/unit and/or counseling patient: Coding Level of Care Code 46195 SUB INP/OBS CARE 3/50MIN Diagnoses SBO (small bowel obstruction) K56.609 Anemia D64.9 Alcohol use disorder F10.90
[2024-01-13] MEDS: MIDAZOLAM HCL 1 MG/ML 2ML VIAL ONE (14:49)
[2024-01-13] MEDS: PROPOFOL IV EMULSION 10 MG/ML 20 ML VIAL IV ONE (14:49)
[2024-01-13] MEDS: LIDOCAINE 2% 2 ML VIAL/AMP(20MG/ML) INFIL ONE (14:49)
[2024-01-13] MEDS: ENDOSCOPIC MARKER 5 ML SYR TOP ONE (14:50)
[2024-01-13] MEDS: IRON SUCROSE 200 MG in 0.9 % SODIUM CHLORIDE 100 ML IV SCH (14:56)
[2024-01-14 08:15] LABS: Hematocrit (blood only) 34.9 % (42.0-52.0); Hemoglobin 10.2 g/dl (14.0-18.0); Mean Corpuscular Hemoglobin 19.9 pg (25.0-34.0); Mean Corpuscular Hgb Conc 29.2 g/dL (32.0-36.0); Mean Corpuscular Volume 68.2 fL (80.0-100.0); Platelet Count 148 K/uL (130-400); RDW Coefficient of Variation 24.2 % (11.5-14.5); RDW Standard Deviation 57.5 fL (36.4-46.3); Red Blood Count 5.12 M/uL (4.70-6.10); White Blood Count 4.68 K/ul (4.8-10.8)
[2024-01-14 08:28] LABS: BUN Creatinine Ratio 2.7 (10-20); Calcium 8.2 mg/dl (8.6-10.3); Creatinine Clr Calc Pharmacy 94.3 ml/min; Est GFR (Non-African American) 97.5 ml/min; Potassium 3.6 mmol/L (3.5-5.1)
[2024-01-14] MEDS: IRON SUCROSE 200 MG in 0.9 % SODIUM CHLORIDE 100 ML IV SCH (11:14)
--- NOTE | 2024-01-14 11:47 | Surgery Progress Note ---
<Statement entered by Merle Gonzalez, DO - 01/14/24 12:31> Pathology result still pending, two masses on opposites sides of the colon. Follow up with me in the office next week to review pathology of the second area and then confirm necessary surgical procedure. Continue clear to full liquids at home. Hoping to plan for elective surgery next week. Date of Service January 14, 2024 Assessment & Plan (1) SBO (small bowel obstruction): Plan: SBO resolved, continue Full liquid diet on d/c (2) Mass of colon: Plan: Patient underwent colonoscopy with biopsies yesterday Pathology pending was noted to have two areas with a presumptive malignancy Patient to follow up in the office outpatient 1-[address] Gonzalez for possible surgical intervention pending pathology results. Admission and Anticipated Discharge Date Admission Date: January 09, 2024 Subjective Pt sitting in bed tolerating clear liquid diet Review of Systems Constitutional: no fever and no chills Respiratory: no dyspnea Cardiovascular: no chest pain Gastrointestinal: + abdominal pain (cramping); no nausea a nd no vomiting Genitourinary: no dysuria Musculoskeletal: no muscle weakness Integumentary: no rash Physical Exam Physical Exam: alert oriented Constitutional: cooperative and comfortable; no acute distress Respiratory: normal respiratory effort and able to speak in complete sentences; no respiratory distress Cardiovascular: Rate/Rhythm: regular rate Gastrointestinal (Abdomen): Inspection/Auscultation: abdomen not distended Percussion/Palpation: abdomen soft; abdomen nontender and no guarding Musculoskeletal: no cyanosis or clubbing, extremities motor strength 5/5 Results & Data Vital Signs (Past 12 Hours) Vital Signs Temp Pulse Resp BP Pulse Ox O2 Del Method 01/14/24 11:23 98.1 F 71 18 151/77 H 97 Room Air 01/14/24 07:29 98.1 F 91 H 20 161/78 H 98 Room Air PG Care Time/CCT Total # of Minutes Spent Total Time Spent with Patient: Total time spent is greater than 50% in coordination of care (as documented) at patient's floor/unit and/or counseling patient: Coding Level of Care Code 72597 SUB INP/OBS CARE /25MIN Diagnoses SBO (small bowel obstruction) K56.609 Mass of colon K63.89
--- NOTE | 2024-01-14 12:14 | Discharge Summary ---
Date of Service January 14, 2024 Admission HPI Per Admitting Provider Hossein is a 63-year-old male recently admitted 12/15- 01/01 for small bowel obstruction/enteritis and with a past medical history of alcohol abuse approximately 6 beers daily and GERD who presents with severe abdominal pain similar to his bowel obstruction requiring admission earlier in the month. He does not have leukocytosis or CAROL. CT shows nonspecific enteritis of the distal/terminal ileum, partial small bowel obstruction? Related to stricture/mucosal edema, cecal edema, and a thick-walled esophagus. No pneumatosis or free air are noted. Normally with BM loose 8-10 daily even without eating a lot. Last 2 days they have been very loose, smaller, with straining and now 3-4 days with minimal coming out. Bright red blood per rectum which is new in the last day. Had some episodes of bright red blood last month with prior SBO, none since. Denies melena. Father had a history of colorectal cancer. No history of colitis. He was pending a colonoscopy as an outpatient but has unfortunately not remained well enough long off to get this. Reports she currently has severe spasm-like pain in his midline upper abdomen. He has not vomited and does not feel nauseous but has waves of pain and discomfort No lightheadedness, dizziness No chest pain, chest pressure Feels strong stomach cramping, discomfort, and nausea which comes in cycles. No vomiting No heart problems, lung problems, or kidney problems Takes OTC benadryl as needed. Used to take H2 tasneem and PPI as needed, took ppi until ~2 days ago after last discharge. Got 1 unit of blood last month. Previously with high alcohol intake up to 2830 beers per day, in the last 2 months has been weaning and anticipating of a colonoscopy and has been drinking around 46 beers per day with his last drink last night. Has been through withdrawal before without seizures, does not feel like he is in withdrawal currently. Medical History: Reviewed Medications: Reviewed Surgical History: Reviewed Family history: Reviewed Allergies: Reviewed Social History: Reviewed Code Status: Full Principal Diagnosis Small bowel obstruction, partially obstructing cecal mass, probably malignant. Descending colon mass, probably malignant, benign colon polyps, iron deficiency anemia Discharge Exam General-alert and oriented x3, no fever, no chills HEENT-head atraumatic and normocephalic, pupils equal and reactive to light, extraocular muscles intact Neck-no lymphadenopathy or thyromegaly, trachea midline Chest-clear to auscultation. No rales, wheezing or rhonchi Cardiac-regular rate and rhythm, normal S1 and S2 Abdomen-normal bowel sounds, nontender, no hepatosplenomegaly Extremities-no cyanosis, clubbing, or edema Neuro-cranial nerves II through XII intact, motor and sensory function within normal limits, strength symmetrical, no focal deficits Psych-normal affect, normal mood Discharge Data Allergies Allergy/AdvReac Type Severity Reaction Status Date / Time tree and shrub pollen Allergy Mild runny Verified 01/13/24 11:21 nose, itchy eyes, sneezing Consultations 01/09/24 13:00 ED Decision to Admit Stat 01/09/24 16:50 Consult General Surgery Routine 01/10/24 09:53 Consult Gastroenterology Routine Procedures Performed Operation Date: 01/13/24 16:30 Actual Procedures p Colonoscopy Biopsy Cytology - Leo Rudd Case, DO s Colonoscopy Polypectomy - Leo Rudd Case, DO Ordered Studies 01/09/24 11:41 CT abd pelvis IV con only Stat 01/12/24 09:08 [place] small bowel follow through Urgent Hospital Course (1) SBO (small bowel obstruction): Recurrent. Now resolved. Appreciate GI consultation and surgery consultation. Colonoscopy on 01 12 revealed a partially obstructing cecal mass that is probably malignant. He also has a descending colon mass which was biopsied. Pathology report remains pending at this time. General surgery prefers to wait for pathology reports to be available before scheduling any surgical intervention. He currently is on clear liquid diet which will continue after discharge until surgery has been performed. So far, clear liquids have been well-tolerated (2) Anemia: Iron deficiency noted. Venofer has been started, day 2. Serial labs. (3) Alcohol use disorder: Alcohol cessation recommended. Currently stable. Patient denies history of seizures. Recently has been drinking around 4-6 beers per day, last drink was 01/06/24. No signs of alcohol withdrawal. Plan Home today, January 13. He will remain on a clear liquid diet. He will follow-up with general surgery in 1 or 2 weeks for review of the pathology report and scheduling of surgery to remove the GI masses. Total Time Total Time Spent Total Time Spent (In Minutes): 45 minutes Discharge Plan Discharge Items Patient Disposition: Home - Self-Care Reason For Visit: RECURRENT SBO, HEMATOCHEZIA Discharge Diagnosis: Recurrent small bowel obstruction, partially obstructing cecal mass thought to be malignant, descending colon mass thought to be malignant, iron deficiency anemia, benign colon polyps Activity: Resume your previous activity Non-emergency contact: Primary Care Provider Call non-emergency contact if: your symptoms worsen Follow-up/Referrals: Merle Gonzalez, [Physician] - Dejuan Oliva MD [Primary Care Provider] - Diet: Clear liquid Addtl Attending Provider Instructions: Remain on a clear liquid diet. See general surgery in the office in 1 or 2 weeks for review of pathology reports and scheduling of needed bowel surgery Pending Studies at Discharge: Yes Studies:: Pathology reports from the colonoscopy specimens Stand-Alone Forms: [facility], Smoking Cessation Medications and DC Order Prescriptions: Continued sucralfate [Carafate] 100 mg/mL suspension 10 ml PO QID Qty: 420 0RF Rx Instructions: swish in mouth and swallow; use after food/drink: May substitute tablets as a slurry. pantoprazole 40 mg tablet,delayed release (DR/EC) 40 mg PO DAILY Qty: 30 0RF diphenhydramine HCl [Benadryl] 25 mg Capsule 25 mg PO DIRECTED PRN (Reason: ALLERGIES) dicyclomine 10 mg capsule 10 mg PO TID PRN (Reason: abdominal pain) Qty: 20 0RF ondansetron 4 mg tablet,disintegrating 4 - 8 mg PO Q8H PRN (Reason: nausea and vomiting) Qty: 14 0RF Discharge Orders: Discharge Order (Routine); Ordered 01/14/24 Ordered By: Michael Sepulveda Admission Data Admit Date/Time: 01/09/24 14:32 Attending Provider: Michael Sepulveda Admit Provider: Afshin Contreras Primary Care Provider: Dejuan Oliva Other Providers: Afshin Contreras; Merle Gonzalez; Leo Marshall Coding Level of Care Code 91053 INP/OBS DISCH >30 MIN Diagnoses SBO (small bowel obstruction) K56.609 Anemia D64.9 Alcohol use disorder F10.90
== END 2024-01-14 13:42 | disposition home or self-care (01) | DRG 389 ==
LOC: ED 11:26 → 3N 14:32 → SUATTDRO 14:32 → 3N 15:51